=== PATIENT | male | born 1970 | race Caucasian/White ===

== ENCOUNTER 2016-10-14 18:00 | Emergency (ER) | payer BC ==
[~2016-10-14] VITALS: Ht 177.8 cm; Wt 125.4 kg
[~2016-10-14 18:00] MED LIST: CMD10 PO
[2016-10-14 18:04] VITALS: BP 160/78; PULSE 109; TEMP 37.4; O2SAT 93; Ht 177.8 cm; Wt 125.4 kg
--- NOTE | 2016-10-14 18:53 | EMERGENCY ROOM VISIT NOTE ---
ED Visit Note First contact with patient: 18:33 CHIEF COMPLAINT: Abscess of the buttocks HISTORY OF PRESENT ILLNESS: This 46-year-old male patient presents to the emergency department after they noticed a hard, red, tender area within the gluteal fold on the right buttock. Patient states this started about 3 days ago as a small pimple and has grown larger over the past 3 days becoming very painful and tender. Patient also noted some bloody drainage from the area today. There was no injury to the area preceding the infection. He denies fevers, chills, vomiting, loss of appetite. They rate the pain as aching and 6/ 10. Tetanus shot is up to date. They have tried no previous medications. Patient went to urgent care, [facility], and was sent here for further evaluation. The patient is not diabetic. The patient has no previous history of subcutaneous abscesses. Patient takes Coumadin for history of blood clots in the past. REVIEW OF SYSTEMS: A review of systems was performed with positives and pertinent negatives listed in the history of present illness. All other systems were reviewed and are negative. ALLERGIES: Penicillins MEDICATIONS: Warfarin PMH: Blood clots SOCIAL HISTORY: Current every day heavy smoker. Denies alcohol, denies recreational drugs. PHYSICAL EXAM: Vital Signs: Reviewed Nurse's notes, vital signs stable. GENERAL : Alert and pleasant, no acute distress, non toxic in appearance, well- developed well-nourished. SKIN: There is an erythematous indurated area within the gluteal fold on the right buttock which measures about 6 cm in diameter. It is fluctuant with a small amount of bloody and purulent drainage noted. There is a surrounding area of cellulitis measuring 8 cm x 12 cm, erythema and tender to palpation. Capillary refill less than 2 seconds. MUSCULOSKELETAL: There is no limitation of the range of motion of the lower extremities. EMERGENCY DEPARTMENT COURSE: I examined the patient. Differential diagnosis includes abscess, cellulitis, infected subcutaneous cyst, MRSA. Verbal consent was obtained to perform the procedure. After saline and Betadine cleansing and 3 mL of 1% buffered lidocaine with epinephrine anesthesia, the abscess was incised with a number 11 scalpel blade. A large amount of purulent and bloody material was released with more expressed by pressure. The abscess cavity was further probed with a needle auto haulaway driver and the deep pocket expressed. The abscess cavity was then copiously irrigated with sterile saline under pressure. The area was then packed with bacitracin soaked packing. The area was cleaned with sterile saline and dressed with bacitracin and a bulky bandage. Bleeding was controlled. The patient tolerated the procedure well. The area of cellulitis was marked with a skin marker for reference. The patient was given his first oral dose of clindamycin and prescription sent to the pharmacy. The patient was discharged home in stable condition. Problem List Medical Problems: (1) DVT (deep venous thrombosis) Status: Resolved (2) Superficial phlebitis Status: Resolved Current/Historical Medications Scheduled Clindamycin HCl (Clindamycin HCl), 3 CAP PO TID Warfarin Sodium (Coumadin), 10 MG PO DAILY Allergies Coded Allergies: Penicillins (Verified Allergy, Unknown, HIVES, 07/09/14) Vital Signs Date Time Temp Pulse Resp B/P Pulse Ox O2 Delivery O2 Flow Rate FiO2 10/14/16 18:04 37.4 109 20 160/78 93 Room Air Medications Administered Medications (Trade) Dose Ordered Sig/Gerardo Route Start Time Stop Time Status Last Admin Dose Admin Clindamycin HCl (Cleocin Cap) 450 mg NOW ONCE PO 10/14/16 20:15 10/14/16 20:16 DC 10/14/16 20:07 450 MG Departure Information Impression Primary Impression: Abscess or cellulitis of gluteal region Dispostion Home / Self-Care Condition GOOD Prescriptions Clindamycin HCl (Clindamycin HCl) 150 Mg Cap 3 CAP PO TID for 7 Days, #63 CAP Prov: Tiesha Lewis CRNP 10/14/16 Referrals Jay Hutchison III, M.D. (PCP) Patient Instructions My [facility] Additional Instructions Follow-up with your PCP tomorrow to have your wound evaluated and a dressing change done. You may change the dressing if it becomes soiled or bloodstained. The gauze packing should be able to come out in about 3 days. You should follow closely with your PCP to make sure the wound is healing appropriately. You may take Tylenol 1000 mg every 8 hours as needed for pain. Clindamycin 450 mg 3 times a day for 7 days. Return if any problems such as fever or increasing pain. See a general surgeon if an abscess re-occurs in the same area in the future for consideration of excision of the cyst.
[2016-10-14] MEDS ORDERED: LIDOCAINE/EPINEPHRINE 1% 20 ML VIAL INFIL ONE (19:00)
[2016-10-14] MEDS ORDERED: WARF10TA PO (19:23)
[2016-10-14] MEDS ORDERED: CLIN1CAP51 PO (20:01)
[2016-10-14] MEDS ORDERED: CLINDAMYCIN HCL 150 MG CAP PO ONE (20:15)
== END 2016-10-14 20:10 | disposition home or self-care (01) ==
LOC: C.EDB 18:00 → C.EDD 20:10
DX: L02.31 Cutaneous abscess of buttock (principal); L03.317 Cellulitis of buttock; Z86.718 Personal history of other venous thrombosis and embolism; Z79.01 Long term (current) use of anticoagulants; Z88.0 Allergy status to penicillin

== ENCOUNTER 2019-06-27 14:23 | Inpatient (IN) ==
[2019-06-27] MEDS ORDERED: METOPROLOL TARTRATE 1 MG/ML VIAL IV STA (14:32)
[2019-06-27] MEDS ORDERED: ASPIRIN CHEW 324 MG PO STA (14:32)
[2019-06-27] MEDS ORDERED: METOPROLOL TARTRATE 1 MG/ML VIAL IV ONE (14:32)
[2019-06-27 14:40] LABS: Basophils # (auto) 0.02 K/uL (0-0.2); Basophils % (auto) 0.2 %; Eosinophils # (auto) 0.12 K/uL (0-0.5); Eosinophils % (auto) 1.3 %; Hematocrit (blood only) 48.3 % (42-52); Hemoglobin 16.5 g/dL (14.0-18.0); Immature Granulocytes # (auto) 0.01 K/uL (0.00-0.02); Immature Granulocytes % (auto) 0.1 %; Lymphocytes # (auto) 1.92 K/uL (1.2-3.4); Lymphocytes % (auto) 21.1 %; Mean Corpuscular Hemoglobin 31.1 pg (25-34); Mean Corpuscular Hgb Conc 34.2 g/dL (32-36); Mean Platelet Volume 12.2 fL (7.4-10.4); Monocytes # (auto) 0.67 K/uL (0.11-0.59); Monocytes % (auto) 7.4 %; Neutrophils # (auto) 6.36 K/uL (1.4-6.5); Neutrophils % (auto) 69.9 %; Platelet Count 171 K/uL (130-400); RDW Coefficient of Variation 14.7 % (11.5-14.5); Red Blood Count 5.31 M/uL (4.7-6.1)
[2019-06-27] MEDS ORDERED: SODIUM CHLORIDE 0.9% 1000ML 1,000 ML IV SCH (14:45)
[2019-06-27] MEDS ORDERED: dilTIAZem HCL 125 MG in DEXTROSE 5% 100 ML IV SCH (14:45)
[2019-06-27 15:04] LABS: INR 1.9 (0.9-1.1); Partial Thromboplastin Ratio 1.4; Partial Thromboplastin Time 39.2 Seconds (21.0-31.0); Prothrombin Time 18.3 Seconds (9.0-12.0)
[2019-06-27 15:25] LABS: BUN Creatinine Ratio 18.4 (10-20); Blood Urea Nitrogen 18 mg/dl (7-18); Carbon Dioxide 25 mmol/L (21-32); Chloride 101 mmol/L (98-107); Creatinine Clr Calc Pharmacy 115.6 ml/min; Est GFR (Non-African American) 88.9; Glucose 313 mg/dl (70-99); Lipase 45 U/L (73-393); Magnesium 2.1 mg/dl (1.8-2.4); Potassium 4.2 mmol/L (3.5-5.1); Sodium 133 mmol/L (136-145)
[2019-06-27 15:43] LABS: Troponin I < 0.015 ng/ml (0-0.045)
[2019-06-27] MEDS ORDERED: OPTIRAY 320 125ml IV PRN (15:55)
--- NOTE | 2019-06-27 16:11 | CT Scan Report ---
CT angio chest PE protocol CT DOSE: 789.03 mGy.cm HISTORY: Dyspnea Chest Pain, eval for PE TECHNIQUE: Multiaxial CT images of the chest were performed following the intravenous administration of contrast to evaluate the pulmonary arteries. Maximal intensity projection images were also obtaine d. A dose lowering technique was utilized adhering to the principles of ALARA. COMPARISON STUDY: 02/08/2019 FINDINGS: Considerable improvement in the necrotic lesion right pulmonary apex. Moderate residual fib rotic change. Pulmonary vasculature enhances appropriately. Small linear filling defect distal right main pulmonary artery. All remaining pulmonary vessels appear to enhance appropriately. IMPRESSION: 1. Focal acute pulmonary embolus distal right main pulmonary artery. 2. Main pulmonary vessels enhance appropriately. 3. Emphysematous change. 4. Improving necrotic process right pulmonary apex with moderate fibrotic residual. ACT 112: Negative or not required by law. The above report was generated using voice recognition software. It may contain grammatical, syntax or spelling errors. Electronically signed by: Elbert Miles M.D. 06/27/2019 4:10 PM
[2019-06-27] MEDS ORDERED: HEPARIN SOD (PORCINE) 1000 UNIT/ML 10 ML VIAL ONE (16:58)
[2019-06-27] MEDS: HEPARIN SODIUM/DEXTROSE 25,000 UNITS/500 ML BAG IV SCH (17:05)
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
[2019-06-27] MEDS ORDERED: ACETAMINOPHEN 325 MG TAB PO PRN (18:49)
[2019-06-27] MEDS ORDERED: GLUCOSE 10 TABS/TUBE PO PRN (19:01)
[2019-06-27] MEDS ORDERED: GLUCOSE 40% GEL 15 GM TUBE PO PRN (19:01)
[2019-06-27] MEDS ORDERED: DEXTROSE 50% 50 ML SYRINGE IV PRN (19:01)
[2019-06-27] MEDS ORDERED: CARBOHYDRATES FOR HYPOGLYCEMIA PO PRN (19:01)
[2019-06-27] MEDS ORDERED: GLUCAGON FOR INJ 1 MG VIAL SQ PRN (19:01)
[2019-06-27] MEDS ORDERED: INSULIN GLARGINE SOLOSTAR 100 UNITS/ML 3 ML PEN SC ONE ×2 (19:45)
[2019-06-27] MEDS: METOPROLOL TARTRATE 25 MG TAB PO SCH (20:48)
[2019-06-27] MEDS: INSULIN ASPART 100 UNITS/ML 3 ML PEN SC SCH (20:49)
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
[2019-06-27 23:29] LABS: Partial Thromboplastin Ratio 2.3
[2019-06-27 23:37] LABS: Partial Thromboplastin Time 62.8 Seconds (21.0-31.0)
[2019-06-28 06:57] LABS: Hematocrit (blood only) 45.6 % (42-52); Hemoglobin 15.6 g/dL (14.0-18.0); Mean Corpuscular Hemoglobin 31.1 pg (25-34); Mean Corpuscular Hgb Conc 34.2 g/dL (32-36); Mean Corpuscular Volume 90.8 fL (80-100); Mean Platelet Volume 11.9 fL (7.4-10.4); Platelet Count 148 K/uL (130-400); RDW Coefficient of Variation 14.9 % (11.5-14.5); RDW Standard Deviation 49.9 fL (36.4-46.3); Red Blood Count 5.02 M/uL (4.7-6.1); White Blood Count 7.84 K/uL (4.8-10.8)
[2019-06-28 07:20] LABS: INR 1.5 (0.9-1.1); Partial Thromboplastin Ratio 1.8; Prothrombin Time 15.1 Seconds (9.0-12.0)
[2019-06-28 07:24] LABS: Partial Thromboplastin Time 49.3 Seconds (21.0-31.0)
[2019-06-28 07:25] LABS: BUN Creatinine Ratio 19.2 (10-20); Calcium 8.7 mg/dl (8.5-10.1); Creatinine Clr Calc Pharmacy 167.6 ml/min; Est GFR (African American) 128.9; Est GFR (Non-African American) 111.3; Potassium 3.9 mmol/L (3.5-5.1)
[2019-06-28] MEDS: HEPARIN SODIUM/DEXTROSE 25,000 UNITS/500 ML BAG IV SCH (07:31)
[2019-06-28] MEDS ORDERED: PERFLUTREN LIPID MICROSPHERE (DEFINITY) IV ONE (07:40)
[2019-06-28] MEDS: INSULIN ASPART 100 UNITS/ML 3 ML PEN SC SCH ×4 (08:18→20:38)
[2019-06-28] MEDS: INSULIN GLARGINE SOLOSTAR 100 UNITS/ML 3 ML PEN SC SCH ×2 (08:22→20:37)
[2019-06-28] MEDS: METOPROLOL TARTRATE 25 MG TAB PO SCH ×2 (08:24→20:36)
--- NOTE | 2019-06-28 10:47 | Medical Student Progress Note ---
Date of Service June 28, 2019 Assessment & Plan (1) Atrial fibrillation with RVR: Pt is a 49M with hx of HTN, chronic DVT on bloodthinner, and T2DM presenting with asymptomatic atrial fibrillation discovered on outside EKG found to have PE which is managed with heparin and spontaneously converted to sinus rythmn. Atrial Fibrillation with RVR - 06/27 EKG from PCP showed atrial fibrillation with RVR, pt reported he had no symptoms. - Converted to sinus rhythm last night. Pt to continue cardiazem gtt. - He is already on beta miguel for HTN - INR from 06/26 is 3.1, today is 1.5. R DVT/Pulmonary Embolism - 06/27 CTA chest shows PE on distal right main pulmonary artery - Continue heparin gtt HTN - BP today is 131/83 - continue home med, metoprolol tartrate 12.5mg (2) Acute DVT (deep venous thrombosis): (3) Acute pulmonary embolism: (4) History of DVT (deep vein thrombosis): (5) DVT prophylaxis: (6) History of pulmonary embolism: Subjective Pt is a 49M admitted to hospital on 06/27 from PCP due to abnormal EKG showing atrial fibrillation with RVR. His history is significant for chronic DVTs treated with bloodthinners. He was on Xarelto for years, but on 01/2019 he came in with R leg DVT and was switched to Coumadin. He recently presented to ER on 06/26 for leg pain and was worked up for DVT and Lila Acosta recommended that he change from Coumadin to Eliquis given subtherapeutic INR. He also has HTN treated with metoprolol and T2DM on insulin. This morning he reports feeling fine. He took one dose of Eliquis yesterday and had follow up with PCP who noticed an irregular pulse. She got an EKG which showed atrial fibrillation with RVR. He states that he never had any palpitations, chest pain, dizziness, and SOB on exertion, but does get SOB with lying flat. He endorses numbness and tingling in R>L foot, no gait instability. His job requires him to walk alot so his legs does swell at the end of the day so he elevates it when he sleep which improves it. He is a chronic smoker (1/2 PPD) with no interest in stopping. Review of Systems Constitutional: no fever, no chills, no body aches and no fatigue Eyes: no worsening vision Respiratory: no cough and no dyspnea on exertion Cardiovascular: + orthopnea and + edema (related to chronic DVT, usually notices at the end of the day, improves with elevation); no chest pain and no palpitations Gastrointestinal: no abdominal pain and no vomiting Neurologic: + tingling and + numbness (in R>L foot); no lack of coordination Physical Exam Constitutional: comfortable; no acute distress Eyes: PERRL, conjunctivae normal, anicteric sclerae ENMT: external ear and nose normal, oropharynx normal Neck: submandibular scar from recent surgery Respiratory: normal respiratory effort, lungs clear to auscultation Cardiovascular: RRR, no murmur, no edema Vessels: no JVD and no carotid bruit Extremities: + edema Gastrointestinal (Abdomen): normal bowel sounds, soft, nontender, no hepatosplenomegaly Musculoskeletal: no cyanosis or clubbing, extremities motor strength 5/5 Skin: + dry skin (flaking) Results & Data ([facility]) Vital Signs (Past 12 Hours) Vital Signs Temp Pulse Pulse Resp BP Pulse Ox 06/28/19 08:18 85 06/28/19 08:06 36.8 C 77 12 131/83 93 06/28/19 03:52 36.9 C 68 16 128/78 94 06/27/19 23:57 88 06/27/19 23:42 36.5 C 115 H 20 131/92 93
[2019-06-28] MEDS ORDERED: Nursing to Pharmacy Communication ONE (12:12)
--- NOTE | 2019-06-28 15:15 | Hospitalist Progress Note ---
Date of Service June 28, 2019 Assessment & Plan (1) Acute pulmonary embolism: (1) Acute pulmonary embolism: (2) Acute DVT (deep venous thrombosis): per admitting service notes: -Patient presenting by referral of PCPs office after he was found to be in atrial fibrillation with RVR; seen in ED yesterday and diagnosed with right lower extremity greater saphenous vein DVT. CTA chest in the ED today showing right main pulmonary artery pulmonary embolism. -Patient's pulmonary embolism and DVT history treatments outlined in detail in HPI -As of 01/2019, patient was placed on Coumadin. INR yesterday 3.1 however review of outpatient records shows several subtherapeutic INR's and missed an ticoagulation clinic. -Given patient's history of noncompliance in the past, it is unclear if he has had truly Xarelto, Eliquis, Coumadin failure -Started on heparin drip in the ED, will continue with; further determination to be made regarding oral anticoagulation -Patient is tachycardic however saturating well on room air and BP is stable -- hemodynamically stable INR 1.5, continue heparin drip will discuss with Brazing Furnace Feeder re: choice of long term anticoagulation (3) Atrial fibrillation with RVR -Patient with history of paroxysmal atrial fibrillation and flutter in the past in the setting of acute pulmonary embolism -- continue Metoprolol 12.5mg BID continue Heparin drip -- Blend Plant Operator consulted -- Echo: EF 50-55%, no segmental wall motion abnormalities noted, normal RV systolic function (4) Type 2 diabetes mellitus: -Hgb A1c 11.0 01/2019 -Patient admits to noncompliance with insulin -Lantus and NovoLog per protocol while hospitalized (5) Cavitary lesion of lung: -History of in 01/2019 -Had negative AFB and QuantiFERON gold testing -Completed 4 weeks of doxycycline -CT chest: showing improvement (6) DVT prophylaxis: -On IV heparin drip as above Disposition: anticipate d/c home when medically stable will either go home with Eliquis or Coumadin Subjective ff up for a fib in RVR, recurrent PE seen sitting up in bed, comfortable, on room air states breathing is fine, no chest pain, dizziness, palpitations no bleeding converted to SR early AM off Cardizem drip no other symptoms Review of Systems Review of Systems: All systems reviewed & are unremarkable except as noted in HPI & below Physical Exam Physical Exam: General- oriented x 3, not in distress, speaks in sentences with no effort or accessory muscle use Head- atraumatic Eyes- PERRL, EOMI, anicteric ENT- oropharynx clear Neck- supple, no JVD, no adenopathy, no thyromegaly; carotids +2/2, no bruits appreciated Lungs- clear to auscultation bilaterally, no rales/wheezes Heart- normal rate, regular rhythm; no murmur, no gallop, no rub appreciated Abdomen- normal bowel sounds, nondistended, soft, nontender, no masses or hepatosplenomegaly Extremities- mild erythema, tenderness, edema right thigh no pretibial edema, no calf tenderness; peripheral pulses intact Neuro- alert, oriented x 3; CN 2-12 grossly intact; motor 5/5 bilaterally;sensation 100% on all extremities; no other gross focal neurologic deficits Skin- warm & dry Results & Data Vital Signs (Past 12 Hours) Vital Signs Temp Pulse Pulse Resp BP Pulse Ox 06/28/19 11:00 36.6 C 75 18 129/82 94 06/28/19 08:18 85 06/28/19 08:06 36.8 C 77 12 131/83 93 06/28/19 03:52 36.9 C 68 16 128/78 94 Laboratory Results Laboratory Results - last 24 hr 06/27/19 06/27/19 06/27/19 14:03 19:10 22:57 WBC RBC Hgb Hct MCV MCH MCHC RDW Std Deviation RDW Coeff of Faustino Plt Count MPV PT INR APTT 62.8 H* PTT Ratio 2.3 Sodium Potassium Chloride Carbon Dioxide Anion Gap BUN Creatinine Est Cr Clr Drug Dosing Est GFR ( Amer) Est GFR (Non-Af Amer) BUN/Creatinine Ratio Glucose POC Glucose 186 H Calcium NT-Pro-B Natriuret Pep 1073 H 06/28/19 06/28/19 06/28/19 06:12 06:12 06:12 WBC 7.84 RBC 5.02 Hgb 15.6 Hct 45.6 MCV 90.8 MCH 31.1 MCHC 34.2 RDW Std Deviation 49.9 H RDW Coeff of Faustino 14.9 H Plt Count 148 MPV 11.9 H PT 15.1 H INR 1.5 H APTT 49.3 H* PTT Ratio 1.8 Sodium 134 L Potassium 3.9 Chloride 102 Carbon Dioxide 27 Anion Gap 5.0 BUN 13 Creatinine 0.67 D Est Cr Clr Drug Dosing 167.6 Est GFR ( Amer) 128.9 Est GFR (Non-Af Amer) 111.3 BUN/Creatinine Ratio 19.2 Glucose 200 H POC Glucose Calcium 8.7 NT-Pro-B Natriuret Pep 06/28/19 06/28/19 06/28/19 07:23 11:40 16:32 WBC RBC Hgb Hct MCV MCH MCHC RDW Std Deviation RDW Coeff of Faustino Plt Count MPV PT INR APTT PTT Ratio Sodium Potassium Chloride Carbon Dioxide Anion Gap BUN Creatinine Est Cr Clr Drug Dosing Est GFR ( Amer) Est GFR (Non-Af Amer) BUN/Creatinine Ratio Glucose POC Glucose 201 H 155 H 116 H Calcium NT-Pro-B Natriuret Pep
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
--- NOTE | 2019-06-28 17:40 | Electrocardiogram Report ---
Test Reason : Blood Pressure : / mmHG Vent. Rate : 098 BPM Atrial Rate : 258 BPM P-R Int : 000 ms QRS Dur : 082 ms QT Int : 354 ms P-R-T Axes : 000 082 068 degrees QTc Int : 451 ms Atrial fibrillation Abnormal ECG When compared with ECG of 27-JUN-2019 14:29, (unconfirmed) No significant change was found Confirmed by Renzo Song ([id number]) on 06/28/2019 5:40:05 PM Referred By: REFERRED SELF Confirmed By:Agapito Song
--- NOTE | 2019-06-28 17:40 | Electrocardiogram Report ---
Test Reason : Blood Pressure : / mmHG Vent. Rate : 137 BPM Atrial Rate : 144 BPM P-R Int : 000 ms QRS Dur : 068 ms QT Int : 312 ms P-R-T Axes : 000 083 048 degrees QTc Int : 471 ms Atrial fibrillation with rapid ventricular response Abnormal ECG When compared with ECG of 07-FEB-2019 19:30, Atrial fibrillation has replaced Sinus rhythm Confirmed by Renzo Song ([id number]) on 06/28/2019 5:40:32 PM Referred By: REFERRED SELF Confirmed By:Agapito Song
--- NOTE | 2019-06-28 17:48 | Electrocardiogram Report ---
Test Reason : Blood Pressure : / mmHG Vent. Rate : 070 BPM Atrial Rate : 070 BPM P-R Int : 178 ms QRS Dur : 076 ms QT Int : 446 ms P-R-T Axes : 047 079 071 degrees QTc Int : 481 ms Normal sinus rhythm Nonspecific ST abnormality When compared with ECG of 27-JUN-2019 14:40, (unconfirmed) Sinus rhythm has replaced Atrial fibrillation Confirmed by Renzo Song ([id number]) on 06/28/2019 5:47:55 PM Referred By: REFERRED SELF Confirmed By:Agapito Song
--- NOTE | 2019-06-28 17:52 | Electrocardiogram Report ---
Test Reason : Blood Pressure : / mmHG Vent. Rate : 076 BPM Atrial Rate : 076 BPM P-R Int : 180 ms QRS Dur : 074 ms QT Int : 426 ms P-R-T Axes : 037 082 070 degrees QTc Int : 479 ms Normal sinus rhythm Nonspecific ST abnormality When compared with ECG of 28-JUN-2019 00:37, (unconfirmed) No significant change was found Confirmed by Renzo Song ([id number]) on 06/28/2019 5:51:54 PM Referred By: REFERRED SELF Confirmed By:Agapito Song
[2019-06-28] MEDS ORDERED: STOP ORDER: HEPARIN ONE (19:59)
[2019-06-28] MEDS: APIXABAN 5 MG TABLET PO SCH (20:35)
[2019-06-29] MEDS: METOPROLOL TARTRATE 25 MG TAB PO SCH (08:14)
[2019-06-29] MEDS: APIXABAN 5 MG TABLET PO SCH (08:15)
[2019-06-29] MEDS: INSULIN GLARGINE SOLOSTAR 100 UNITS/ML 3 ML PEN SC SCH (08:16)
[2019-06-29] MEDS: INSULIN ASPART 100 UNITS/ML 3 ML PEN SC SCH (08:16)
[2019-06-29 08:52] LABS: Estimated Average Glucose 189 mg/dl; Hemoglobin A1C 8.2 % (4.5-5.6)
--- NOTE | 2019-06-29 10:14 | Hospitalist Progress Note ---
Date of Service June 29, 2019 Assessment & Plan (1) Acute pulmonary embolism: (1) Acute pulmonary embolism: (2) Acute DVT (deep venous thrombosis): per admitting service notes: -Patient presenting by referral of PCPs office after he was found to be in atrial fibrillation with RVR; seen in ED yesterday and diagnosed with right lower extremity greater saphenous vein DVT. CTA chest in the ED today showing right main pulmonary artery pulmonary embolism. -Patient's pulmonary embolism and DVT history treatments outlined in detail in HPI -As of 01/2019, patient was placed on Coumadin. INR yesterday 3.1 however review of outpatient records shows several subtherapeutic INR's and missed an ticoagulation clinic. -Given patient's history of noncompliance in the past, it is unclear if he has had truly Xarelto, Eliquis, Coumadin failure -Started on heparin drip in the ED, will continue with; further determination to be made regarding oral anticoagulation -Patient is tachycardic however saturating well on room air and BP is stable -- remained hemodynamically stable, o2 sats >90% on room air patient placed on heparin drip, after discussion with Employee Placement Specialist Dr. Kearns, patient transitioned to Eliquis 10mg BID x 7 days, then 5mg BID indefinitely ff up with [facility] Employee Placement Specialist Dr. Kearns 07/12/19 945am (3) Atrial fibrillation with RVR -Patient with history of paroxysmal atrial fibrillation and flutter in the past in the setting of acute pulmonary embolism -- initially placed on Cardizem drip, then patient converted to sinus ryhthm -- evaluated by Glaze Maker Dr. Marcial -- continue Metoprolol 12.5mg BID continue Eliquis -- Echo: EF 50-55%, no segmental wall motion abnormalities noted, normal RV systolic function -- ff up with Glaze Maker in 1 month (4) Type 2 diabetes mellitus: - A1c 8.2 -Patient admits to noncompliance with insulin -continue insulin regimen, ff up closely with PCP (5) Cavitary lesion of lung: -History of in 01/2019 -Had negative AFB and QuantiFERON gold testing -Completed 4 weeks of doxycycline -CT chest: showing improvement Disposition: d/c home ff up with PCP Monday 07/03 1045am ff up with Employee Placement Specialist and Glaze Maker as noted above Subjective ff up for recurrent PE, A fib remains in SR seen resting in bed, comfortable states he feels much better overall, back to baseline denies chest pain, dyspnea, dizziness, palpitations ambulating in the room with no problems no bleeding states he is ready and would like to be discharged today Review of Systems Review of Systems: All systems reviewed & are unremarkable except as noted in HPI & below Physical Exam Physical Exam: General- oriented x 3, not in distress, speaks in sentences with no effort or accessory muscle use Eyes- anicteric Neck- no JVD Lungs- clear breath sounds bilaterally,no crackles, no wheezing Heart- normal rate, regular rhythm; no murmurs Abdomen- normal bowel sounds, nondistended, soft, nontender Extremities-mild erythema, tenderness on the right medial thigh no pretibial edema, no calf tenderness Neuro- alert, oriented x 3; no gross focal neurologic deficits Skin- warm & dry Results & Data ([facility]) Vital Signs (Past 12 Hours) Vital Signs Temp Pulse Resp BP Pulse Ox 06/29/19 07:09 36.4 C L 68 19 157/90 H 94 06/29/19 05:15 36.7 C 48 L 20 144/85 H 92 06/28/19 23:58 36.6 C 66 18 122/75 94 Laboratory Results Laboratory Results - last 24 hr 06/28/19 06/28/19 06/28/19 11:40 16:32 20:25 POC Glucose 155 H 116 H 173 H Estimat Average Glucose Hemoglobin A1c 06/29/19 06/29/19 05:47 07:27 POC Glucose 124 H Estimat Average Glucose 189 Hemoglobin A1c 8.2 H
--- NOTE | 2019-06-29 10:27 | Discharge Summary ---
Date of Service June 29, 2019 Admission HPI Per Admitting Provider 49-year-old male who presents to the ED by referral of outpatient clinic for evaluation of atrial fibrillation with RVR. Patient has longstanding history of recurrent DVT and pulmonary embolism. Patient admitted to [facility] 01/2018 for acute pulmonary embolism and a left lower extremity DVT. Patient previously on Coumadin for right lower extremity DVT however on presentation to the admission, patient admitted to noncompliance with Coumadin. He was discharged on Xarelto. Patient presented to [facility] again 01/2019 with acute pulmonary embolism. It was felt to be possible Xarelto failure and therefore patient was placed back on Coumadin. Patient was seen in the ED yesterday for right lower extremity swelling. Right lower externally Doppler showed acute superficial thrombus within the greater saphenous vein which extends to within 8 cm from the common femoral vein junction. Patient's INR was 3.1. Hematology was consulted who recommended transitioning the patient to Eliquis. Patient reports taking his first dose of Eliquis this morning. Patient does admit to missing doses of Coumadin, and review of outpatient record demonstrates several subtherapeutic INR and missed anticoagulation clinic appointments. Patient was seen at PCPs office today for close follow-up of ED visit yesterday. Upon arrival, he was found to be in atrial fibrillation with RVR. Patient was asymptomatic and denies chest pain, palpitations, shortness of breath. No lightheadedness, dizziness, diaphoresis, syncopal events. He denies abdominal pain, nausea, vomiting, diarrhea. No other recent illnesses, fevers, chills. He denies any urinary symptoms. In the ED, patient was found to be in atrial fibrillation with RVR with heart rates in the 130s. Chest CTA showing focal acute pulmonary embolus distal right main pulmonary artery. BP has remained stable and patient is saturating well on room air. For the atrial fibrillation, patient was given metoprolol 5 mg IV and started on a Cardizem drip. He was also started on IV heparin. Admission Exam Per Admitting Provider General: Well nourished, well hydrated, obese, no acute distress and not ill appearing Eyes: PERRL, conjunctivae normal, not pale, anicteric sclerae, EOM intact bilaterally ENMT: External ear and nose normal, oropharynx normal Neck: Normal visual inspection, no tracheal deviation, no swelling noted Respiratory: Normal respiratory effort, no respiratory distress, lungs clear to auscultation, no crackles and no wheezes Cardiovascular: Pulse is irregularly irregular, tachycardic. S1 S2 no murmurs appreciated. Chest (Breasts): Chest: normal inspection of chest Gastrointestinal (Abdomen): Abdomen is not distended, soft, non-tender to palpation, no guarding, no palpable hepatosplenomegaly, normal bowel sounds Musculoskeletal: No cyanosis or clubbing, all extremities motor strength 5/5, trace bilateral edema with hyperpigmented skin/stasis dermatitis changes. Right leg bigger than left, nodular tender lesions on medial side of leg and knee Genitourinary: No CVA tenderness Skin: No rash noted on gross inspection, No ulcers noted Neurologic: Alert and oriented x 3, No focal weakness, sensation grossly intact Psychiatric: Euthymic affect, normal judgement Principal Diagnosis ACUTE PULMONARY EMBOLISM, ATRIAL FIBRILLATION IN RAPID VENTRICULAR RESPONSE Discharge Exam General- oriented x 3, not in distress, speaks in sentences with no effort or accessory muscle use Eyes- anicteric Neck- no JVD Lungs- clear breath sounds bilaterally,no crackles, no wheezing Heart- normal rate, regular rhythm; no murmurs Abdomen- normal bowel sounds, nondistended, soft, nontender Extremities-mild erythema, tenderness on the right medial thigh no pretibial edema, no calf tenderness Neuro- alert, oriented x 3; no gross focal neurologic deficits Skin- warm & dry Discharge Data Allergies Allergy/AdvReac Type Severity Reaction Status Date / Time Penicillins Allergy Intermediate Hives Verified 06/27/19 15:27 Consultations 06/27/19 16:17 ED Decision to Admit Stat 06/27/19 18:49 Consult Cardiology Routine Ordered Studies 06/27/19 14:33 CT angio chest PE protocol Stat CT DOSE: 789.03 mGy.cm HISTORY: Dyspnea Chest Pain, eval for PE TECHNIQUE: Multiaxial CT images of the chest were performed following the intravenous administration of contrast to evaluate the pulmonary arteries. Maximal intensity projection images were also obtained. A dose lowering technique was utilized adhering to the principles of ALARA. COMPARISON STUDY: 02/08/2019 FINDINGS: Considerable improvement in the necrotic lesion right pulmonary apex. Moderate residual fibrotic change. Pulmonary vasculature enhances appropriately. Small linear filling defect distal right main pulmonary artery. All remaining pulmonary vessels appear to enhance appropriately. IMPRESSION: 1. Focal acute pulmonary embolus distal right main pulmonary artery. 2. Main pulmonary vessels enhance appropriately. 3. Emphysematous change. 4. Improving necrotic process right pulmonary apex with moderate fibrotic residual. ACT 112: Negative or not required by law. The above report was generated using voice recognition software. It may contain grammatical, syntax or spelling errors. Electronically signed by: Elbert Miles M.D. 06/27/2019 4:10 PM US venous doppler LE RT CLINICAL HISTORY: right leg swelling, hx of dvt COMPARISON STUDY: January 2018 FINDINGS: Color-flow grayscale and spectral waveform analysis was performed. There is extensive greater saphenous superficial thrombus extending from the proximal thigh to the proximal calf. This 8 cm away from the common femoral junction. There is chronic stranding within the superficial femoral vein and popliteal vein with incomplete compressibility. The findings are likely chronic. The common femoral vein appeared patent. The proximal trifurcation veins of the calf appear patent. IMPRESSION: 1. Acute superficial thrombus within the greater saphenous vein which extends to within 8 cm from the common femoral vein junction 2. Chronic DVT involving the right superficial femoral and popliteal veins. ACT 112: Negative or not required by law. Electronically signed by: Norman Rojas M.D. 06/26/2019 12:15 PM Hospital Course (1) Acute pulmonary embolism: (1) Acute pulmonary embolism: (2) Acute DVT (deep venous thrombosis): per admitting service notes: -Patient presenting by referral of PCPs office after he was found to be in atrial fibrillation with RVR; seen in ED prior to admission and diagnosed with right lower extremity greater saphenous vein DVT. CTA chest in the ED on the day of admission showing right main pulmonary artery pulmonary embolism. -Patient's pulmonary embolism and DVT history treatments outlined in detail in HPI -As of 01/2019, patient was placed on Coumadin. INR yesterday 3.1 however review of outpatient records shows several subtherapeutic INR's and missed anticoagulation clinic. -Given patient's history of noncompliance in the past, it is unclear if he has had truly Xarelto, Eliquis, Coumadin failure -Started on heparin drip in the ED -Patient is tachycardic however saturating well on room air and BP is stable -- remained hemodynamically stable, o2 sats >90% on room air patient continued on heparin drip, after discussion with Pull Through Hooker Dr. Mckinney, patient transitioned to Eliquis 10mg BID x 7 days, then 5mg BID indefinitely ff up with [facility] [employer] Through [employer] Dr. Mckinney 07/12/19 945am hypercoagulable work up as out patient (3) Atrial fibrillation with RVR -Patient with history of paroxysmal atrial fibrillation and flutter in the past in the setting of acute pulmonary embolism -- initially placed on Cardizem drip, then patient converted to sinus ryhthm -- evaluated by Fund Development Manager Dr. Cota -- continue Metoprolol 12.5mg BID continue Eliquis -- Echo: EF 50-55%, no segmental wall motion abnormalities noted, normal RV systolic function -- ff up with Fund Development Manager in 1 month (4) Type 2 diabetes mellitus: - A1c 8.2 -Patient admits to noncompliance with insulin -continue insulin regimen, ff up closely with PCP (5) Cavitary lesion of lung: -History of in 01/2019 -Had negative AFB and QuantiFERON gold testing -Completed 4 weeks of doxycycline -CT chest: showing improvement emphasized strongly with patient regarding adherence to medication regimen including Eliquis and Insulin risks and consequences discussed with him in detail he verbalized agreement, understanding with above and with the plan of care Disposition: d/c home ff up with PCP Monday 07/03 1045am ff up with Pull Through Hooker and Fund Development Manager as noted above Total Time Total Time Spent Total Time Spent (In Minutes): 40 minutes Discharge Plan Discharge Items Patient Disposition: Home - Self-Care Reason For Visit: PE,AFIB RVR Discharge Diagnosis: ACUTE PULMONARY EMBOLISM, ATRIAL FIBRILLATION Activity: As commented below Activity Comment: NO HEAVY EXERTION UNTIL RE-EVALUATED BY PRIMARY CARE PHYSICIAN Lifting: Wait until after follow-up appointment Exercise/Sports: Wait until after follow-up appointment Driving/Machine Use: NO DRIVING UNTIL RE-EVALUATED AND ALLOWED BY PRIMARY CARE PHYSICIAN Non-emergency contact: Primary Care Provider Call non-emergency contact if: you have any medication questions, your symptoms worsen, your pain is not controlled, your pain is worsening, your pain is concerning for you and you have a fever Follow-up/Referrals: Jad Cota DO [Physician] - Jay Hilario MD [Primary Care Provider] - 07/03/19 10:45 am Myriam Mckinney MD [Hospitalist] - 07/12/19 9:45 am Diet: Carb Consistent or DM2 and Heart Healthy Addtl Attending Provider Instructions: PLEASE REVIEW YOUR NEW MEDICATION LIST AND FOLLOW INSTRUCTIONS CAREFULLY. INSTRUCTIONS FOR ELIQUIS: 10 MG BY MOUTH TWICE A DAY X 6 DAYS, THEN 5 MG BY MOUTH TWICE A DAY INDEFINITELY PLEASE TAKE YOUR MEDICATIONS REGULARLY INSTRUCTED. CALL YOUR PRIMARY CARE PHYSICIAN IF YOU HAVE ANY QUESTIONS. FOLLOW UP WITH DR. HILARIO AND DR. MCKINNEY (BUSINESS TAXES SPECIALIST/BLOOD SPECIALIST) OUTLINED ABOVE. FOLLOW UP WITH DR. COTA (FITTER UP) IN 1 MONTH. PLEASE CALL PRIMARY CARE PHYSICIAN OR RETURN TO THE ER IMMEDIATELY IF WITH WORSENING OR RECURRENCE OF SYMPTOMS. Pending Studies at Discharge: Yes Studies:: HYPERCOAGUABLE WORK UP Stand-Alone Forms: My [facility] Adknowledge, Smoking Cessation Medications and DC Order Prescriptions: New metoprolol tartrate 25 mg Tablet 12.5 mg PO BID Qty: 30 RF: 2 Continued Eliquis 5 mg tablet See Rx Instructions .ROUTE .COMPLEX Qty: 74 RF: 0 albuterol sulfate [ProAir HFA] 90 mcg/actuation Hfa Aerosol Inhaler 2 puff INHALATION QID PRN (Reason: SHORT OF BREATH) RF: 0 metformin 1,000 mg tablet 1,000 mg PO BID Qty: 60 RF: 3 insulin lispro [Humalog KwikPen Insulin] 100 unit/mL insulin pen 10 units SQ TID Qty: 15 RF: 3 Lantus Solostar U-100 Insulin 100 unit/mL (3 mL) insulin pen 30 unit SUBCUT QAM RF: 0 Discontinued lisinopril 5 mg tablet 5 mg PO DAILY RF: 0 Discharge Orders: Discharge Order (Routine); Ordered 06/29/19 Ordered By: Keaton Deluna/Other Patient Handouts: Diabetes Ring Sorter Complications, Hyperglycemia, Hypoglycemia, Blood Sugar Check, Diabetes Healthy Meals, Diabetes Carbs, Diabetes Exercise Benefits, Diabetes Living Life, Diabetes Manage A1C Test Admission Data Admit Date/Time: 06/27/19 17:33 Attending Provider: Keaton Dominguez Admit Provider: Flavia Beverly I. Primary Care Provider: Jay Hilario Other Providers: Flavia Beverly I. ; Jad Cota
--- NOTE | 2019-06-29 17:24 | Electrocardiogram Report ---
Test Reason : Blood Pressure : / mmHG Vent. Rate : 070 BPM Atrial Rate : 070 BPM P-R Int : 182 ms QRS Dur : 076 ms QT Int : 436 ms P-R-T Axes : 043 077 065 degrees QTc Int : 470 ms Normal sinus rhythm Incomplete right bundle branch block Abnormal ECG When compared with ECG of 28-JUN-2019 06:48, No significant change was found Confirmed by Renzo Song ([id number]) on 06/29/2019 5:24:08 PM Referred By: REFERRED SELF Confirmed By:Agapito Song
--- NOTE | 2019-06-30 16:51 | Cardiology Progress Note ---
Date of Service June 29, 2019 Assessment & Plan (1) Atrial fibrillation with RVR: Transient and asymptomatic. Patient will require anticoagulation regardless for his PE and he has been started on Eliquis. He is remained in normal sinus rhythm with his outpatient metoprolol and that should be continued Okay to discharge from a cardiac standpoint. (2) Acute DVT (deep venous thrombosis): (3) Acute pulmonary embolism: (4) History of DVT (deep vein thrombosis): (5) DVT prophylaxis: (6) History of pulmonary embolism: Subjective Patient seen and examined without complaint. States that he feels well and denies any complaints of chest pain, shortness of breath, palpitations, lightheadedness, dizziness or syncope. Telemetry reviewed: Normal sinus rhythm without recurrences of atrial fibrillation. Review of Systems Review of Systems: All systems reviewed & are unremarkable except as noted in HPI & below Physical Exam Physical Exam: Physical Exam: General: Awake, alert and oriented x 3. No acute distress. HEENT: Normocephalic, atraumatic. Pupils equal, round and reactive to light and accommodation. Extraocular muscles are intact. Anicteric sclera. Moist mucous membranes. Neck: No JVD. No bruit. Cardiovascular: Regular. No S-4. Normal S-1 and S-2. No S-3. No murmurs, rubs or gallops. Pulmonary: Clear to auscultation bilaterally. No rales, rhonchi, or wheezing. Abdomen: Bowel sounds x 4, soft. No rebound, guarding or tenderness. No organomegaly. Extremities: No clubbing, cyanosis or edema. +2 pedal pulses bilaterally. Skin: Warm and dry.
[2019-07-05] MEDS ORDERED: APIXABAN 5 MG TABLET PO SCH (21:00)
== END 2019-06-29 11:35 | disposition home or self-care (01) | DRG 299 ==
LOC: ED 14:23 → 2S 17:33 → SUATTDRO 17:33 → 2S 18:03

== ENCOUNTER 2020-03-01 13:15 | Inpatient (IN) ==
[2020-03-01] MEDS ORDERED: dilTIAZem HCl 5 MG/ML 5 ML VIAL IV STA ×2 (13:31→15:27)
[2020-03-01 13:45] LABS: Basophils # (auto) 0.02 K/uL (0-0.2); Basophils % (auto) 0.2 %; Eosinophils # (auto) 0.06 K/uL (0-0.5); Eosinophils % (auto) 0.7 %; Hemoglobin 16.7 g/dL (14.0-18.0); Immature Granulocytes # (auto) 0.02 K/uL (0.00-0.02); Immature Granulocytes % (auto) 0.2 %; Lymphocytes # (auto) 1.52 K/uL (1.2-3.4); Lymphocytes % (auto) 17.9 %; Mean Corpuscular Hemoglobin 30.1 pg (25-34); Mean Corpuscular Hgb Conc 32.1 g/dL (32-36); Mean Corpuscular Volume 93.7 fL (80-100); Mean Platelet Volume 12.5 fL (7.4-10.4); Monocytes # (auto) 0.56 K/uL (0.11-0.59); Monocytes % (auto) 6.6 %; Neutrophils # (auto) 6.31 K/uL (1.4-6.5); Neutrophils % (auto) 74.4 %; Platelet Count 177 K/uL (130-400); RDW Coefficient of Variation 14.9 % (11.5-14.5); RDW Standard Deviation 51.2 fL (36.4-46.3); Red Blood Count 5.55 M/uL (4.7-6.1); White Blood Count 8.49 K/uL (4.8-10.8)
[2020-03-01 13:59] LABS: INR 1.1 (0.9-1.1); Partial Thromboplastin Ratio 0.9; Partial Thromboplastin Time 26.5 Seconds (21.0-31.0); Prothrombin Time 11.7 Seconds (9.0-12.0)
[2020-03-01 14:17] LABS: Alanine Aminotransferase 42 U/L (12-78); Albumin Globulin Ratio 0.8 (0.9-2); Alkaline Phosphatase 76 U/L (45-117); Aspartate Aminotransferase 14 U/L (15-37); BUN Creatinine Ratio 11.1 (10-20); Bilirubin,Total 0.5 mg/dl (0.2-1); Blood Urea Nitrogen 14 mg/dl (7-18); Calcium 9.2 mg/dl (8.5-10.1); Carbon Dioxide 28 mmol/L (21-32); Chloride 99 mmol/L (98-107); Creatinine Clr Calc Pharmacy 93.4 ml/min; Est GFR (African American) 73.2; Est GFR (Non-African American) 63.2; Globulin 3.9 gm/dl (2.5-4.0); Glucose 563 mg/dl (70-99); Lipase 172 U/L (73-393); Magnesium 1.7 mg/dl (1.8-2.4); Phosphorus 4.2 mg/dl (2.5-4.9); Potassium 4.1 mmol/L (3.5-5.1); Sodium 134 mmol/L (136-145); Total Protein 6.9 gm/dl (6.4-8.2)
[2020-03-01 14:19] LABS: NT Pro B Type Natriuretic Pept 1354 pg/ml (0-900); Troponin I < 0.015 ng/ml (0-0.045)
--- NOTE | 2020-03-01 14:19 | XRay Report ---
XR chest 1V portable CLINICAL HISTORY: Atypical chest pain COMPARISON STUDY: 08/01/2019 FINDINGS: The heart is enlarged. There is elevation of interstitium consistent with pulmonary vascula r congestion/fluid overload. There is a suspected small right pleural effusion. There are right lower lobe airspace opacities, edema versus atelectasis versus pneumonia[ IMPRESSION: 1. Cardiomegaly and radiographic evidence of congestive failure/fluid overload. 2. Small right pleural effusion 3. Right basilar airspace opacities. These are nonspecific and could represent focal edema, pneumonia , or atelectasis. Clinical and radiographic follow-up recommended ACT 112: Negative or not required by law. Electronically signed by: Norman Rojas M.D. 03/01/2020 2:18 PM
[2020-03-01 14:31] LABS: Beta-Hydroxybutyrate 1.75 mg/dl (0.2-2.81)
[2020-03-01] MEDS ORDERED: OPTIRAY 320 125ml IV ONE (14:43)
[2020-03-01 14:49] LABS: T4 Free Thyroxine 1.73 ng/dl (0.8-1.6)
--- NOTE | 2020-03-01 15:06 | CT Scan Report ---
CT ANGIOGRAM OF THE CHEST CLINICAL HISTORY: Dyspnea. COMPARISON STUDY: Chest CT scans dated 06/27/2019, 02/08/2019, and 02/11/2018. Chest x-ray dated 020. TECHNIQUE: Following the IV administration of 118 cc of Optiray 320, CT angiogram of the chest was pe rformed from the upper abdomen to the thoracic inlet utilizing the pulmonary embolus protocol. Images are reviewed in the axial, sagittal, and coronal planes. 3-D MIPS images are created and assessed. I V contrast was administered without complication. A dose lowering technique was utilized adhering to the principles of ALARA. CT DOSE: 1081.97 mGy.cm FINDINGS: Thyroid: Imaged portions of the thyroid gland are normal in size and attenuation. Thoracic aorta: There is atherosclerotic calcification of the thoracic aorta, which is normal in [place] and demonstrates 4-vessel calvarium arch anatomy. The thoracic aorta is not well opacified. Pulmonary vasculature: The pulmonary trunk is normal in caliber. Trace chronic thrombus is again seen within the distal right main pulmonary artery on image #163. There is no evidence of acute pulmonary embolus in the main, lobar, or proximal segmental pulmonary branches to suggest pulmonary embolus. E valuation of the peripheral branches is degraded by motion artifact. Heart: The heart is enlarged noting a small pericardial effusion. The coronary arteries are densely c alcified. Lungs and pleural spaces: Emphysematous change is noted. Linear scarring at the right apex is similar to previous. There are small right and trace left pleural effusions with patchy airspace consolidati on at both lung bases. Patchy airspace consolidation is also seen in the right upper lobe. Secretions are noted in the trachea. Mediastinum: There are numerous enlarged mediastinal lymph nodes. Prevascular nodes measure up to 10 mm in short axis. A subcarinal node measures 20 mm in short axis. AP window nodes measure 12 mm in sh ort axis. Eri: Mildly enlarged hilar nodes measure up to 12 mm in short axis. Axillae: There is no axillary lymphadenopathy. Upper abdomen: There is trace perihepatic and perisplenic ascites. Partially visualized upper abdomin al viscera is otherwise grossly unremarkable. Skeletal structures: Degenerative change and hyperkyphosis is noted in the thoracic spine. No lytic o r blastic bony lesions are seen. Soft tissues: A 2 cm sebaceous cyst is noted in the lower back. IMPRESSION: 1. There is no evidence of acute pulmonary embolus in the main, lobar, or proximal segmental pulmonar y arteries. 2. There is trace chronic thrombus identified within the distal right main pulmonary artery. This is similar to the 06/27/2019 examination. 3. Cardiomegaly and emphysema. 4. There are small right and trace left pleural effusions. 5. Patchy airspace consolidation is seen dependently in both lungs. Patchy airspace consolidation is also seen in the right upper lobe. The appearance suggests an infectious/inflammatory pneumonitis. Cl inical correlation will be required. Follow-up chest CT in 3-4 months time is recommended to document resolution. 6. There are mildly enlarged mediastinal and hilar lymph nodes. This has increased from previous and may be on a reactive basis. This should also be reassessed at follow-up. 7. There is a small volume of upper abdominal ascites. 8. Additional findings as above. ACT 112: Negative or not required by law. Electronically signed by: Clifton Hopkins M.D. 03/01/2020 3:05 PM
[2020-03-01] MEDS: MAGNESIUM SULFATE / D5W 1 GM/100 ML BAG IV SCH ×2 (15:20→16:46)
--- NOTE | 2020-03-01 15:28 | Ultrasound Report ---
ULTRASOUND LEFT LOWER EXTREMITY VENOUS CLINICAL HISTORY: Deep venous thrombosis. Left leg pain and swelling. COMPARISON STUDY: Bilateral lower extremity venous ultrasound dated 02/11/2018. TECHNIQUE: Real-time, grayscale, and color Doppler sonography of the deep veins of the left lower ext remity was performed from the inguinal crease to the calf. Compression and augmentation were utilized . 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 There is nonocclusive a nd chronic appearing deep venous thrombosis identified within one of the paired superficial and popli teal veins. The common femoral vein is patent and normally compressible. The greater saphenous vein a nd the profunda femoris vein at the junction with the common femoral vein are clear. The visualized c long-term veins are patent. IMPRESSION: There is nonocclusive and chronic appearing deep venous thrombosis identified within 1 of the duplicated superficial femoral and popliteal veins. ACT 112: Negative or not required by law. Electronically signed by: Clifton Hopkins M.D. 03/01/2020 3:27 PM
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
[2020-03-01] MEDS ORDERED: STAT IV Infusion **Titration per Protocol STA (16:10)
[2020-03-01] MEDS ORDERED: NovoLIN-R BOLUS FROM BAG IV ONE (16:11)
[2020-03-01] MEDS ORDERED: FUROSEMIDE 40 MG/4 ML VIAL IV STA (16:13)
[2020-03-01] MEDS ORDERED: INSULIN HUMAN REGULAR PER UNIT 10 UNITS in SYRINGE 9.9 ML IV STA (16:24)
[2020-03-01] MEDS ORDERED: NovoLIN-R INSULIN PER UNIT CHARGE ONE (16:40)
[2020-03-01] MEDS: dilTIAZem HCL 125 MG in DEXTROSE 5% 100 ML IV SCH (16:46)
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
[2020-03-01] MEDS ORDERED: DEXTROSE 50% 50 ML SYRINGE IV PRN (18:13)
[2020-03-01] MEDS ORDERED: GLUCOSE 10 TABS/TUBE PO PRN (18:13)
[2020-03-01] MEDS ORDERED: GLUCAGON FOR INJ 1 MG VIAL SQ PRN (18:13)
[2020-03-01] MEDS ORDERED: ACETAMINOPHEN 325 MG TAB PO PRN (18:13)
[2020-03-01] MEDS ORDERED: GLUCOSE 40% GEL 15 GM TUBE PO PRN (18:13)
[2020-03-01] MEDS ORDERED: PHARMACY GLYCEMIC MGMT CONSULT PRN (18:25)
[2020-03-01] MEDS: Heparin IV Standard *NO* Bolus IV SCH ×2 (18:44)
[2020-03-01] MEDS ORDERED: METOPROLOL TARTRATE 25 MG TAB PO ONE (19:00)
[2020-03-01] MEDS: HEPARIN SODIUM/DEXTROSE 25,000 UNITS/500 ML BAG IV SCH (19:25)
[2020-03-01] MEDS: INSULIN GLARGINE SOLOSTAR 100 UNITS/ML 3 ML PEN SC SCH (19:29)
[2020-03-01] MEDS: INSULIN ASPART 100 UNITS/ML 3 ML PEN SC SCH ×2 (19:29→22:11)
--- NOTE | 2020-03-01 20:10 | Pharmacy Report ---
Glycemic Control Consultation - Date of Service March 01, 2020 - Scope Scope: Glycemic Pharmacist consulted for glycemic control and to write orders per [facility] inpatient glycemic control protocol. - Objective Weight: 130.6 kg Accuchecks BSG (last 24hrs): 03/01/20 03/01/20 03/01/20 13:34 15:38 17:53 Glucose 563 H* POC Glucose 430 H* 258 H 03/01/20 18:47 Glucose POC Glucose 276 H Laboratory Data (last 24hrs): 03/01/20 13:34 Potassium 4.1 Carbon Dioxide 28 Anion Gap 7.0 Creatinine 1.30 Est Cr Clr Drug Dosing 93.4 Beta-Hydroxybutyric Acd 1.75 - Recent Pertinent Medications Outpatient Anti-diabetic Regimen: * Lantus 30 units SC qAM * Humalog sliding scale TIDM * Trulicity 0.75 mg SC weekly on Mondays * Metformin 1 g PO daily w/ dinner * A1c = 8.2 % (06/29/19), repeat ordered - Assessment & Plan Assessment & Plan: ASSESSMENT: * DK is a 49 year old male admitted on 03/01 with atrial fibrillation with rapid ventricular response * Currently receiving diltiazem and heparin infusions * BSG upon presentation was 563 mg/dL (patient reports eating cheeseburger prior to arrival) * CO2: 28, A, beta-hydroxybutyric acid: 1.75 * Patient received 10 unit IV regular insulin bolus and BSG * Confirmed with RN - patient did not receive any insulin prior to admission * Will utilize past inpatient data from January 2019 to help guide initial insulin dosing PLAN FOR INPATIENT GLYCEMIC CONTROL: * Holding outpatient oral diabetes medications * Basal insulin * Lantus 30 units SC daily * Bolus insulin (weight-based stress of 2 dosing) * NovoLog per scale ACHS or Q6hrs while NPO * Goal Range: Low 110 mg/dL - High 150 mg/dL * Correction Factor: 15 mg/dL/unit * Nutritional / Prandial insulin per carb ratio of 1 unit per 6 grams CHO consumed * Please note that the plan above was derived based on current level of insulin resistance and hospital stress. These recommendations are appropriate for inpatient admission only. Plan of care upon discharge will need to be reassessed to avoid potential outpatient hypo/hyperglycemia. Thank you.
[2020-03-01] MEDS ORDERED: METOPROLOL TARTRATE 25 MG TAB PO SCH (21:00)
[2020-03-01] MEDS: METOPROLOL TARTRATE 25 MG TAB PO SCH (21:12)
--- NOTE | 2020-03-01 23:17 | Electrocardiogram Report ---
Test Reason : Blood Pressure : / mmHG Vent. Rate : 152 BPM Atrial Rate : 163 BPM P-R Int : 000 ms QRS Dur : 076 ms QT Int : 284 ms P-R-T Axes : 000 114 -31 degrees QTc Int : 451 ms Poor data quality, interpretation may be adversely affected Atrial fibrillation with rapid ventricular response Right axis deviation Septal infarct , age undetermined Nonspecific T wave abnormality Abnormal ECG When compared with ECG of 01-AUG-2019 13:23, No significant change was found Confirmed by Juan Ryan ([id number]) on 03/01/2020 11:16:54 PM Referred By: Nissa Reed Confirmed By:Juan Ryan
[2020-03-02] MEDS: dilTIAZem HCL 125 MG in DEXTROSE 5% 100 ML IV SCH ×3 (00:06→19:21)
[2020-03-02 00:45] LABS: T3 Free 3.39 pg/ml (2.3-4.2); T3 Total 1.15 ng/ml (0.60-1.81); T4 Thyroxine 10.8 mcg/dl (4.5-10.9)
[2020-03-02 01:29] LABS: Basophils # (auto) 0.03 K/uL (0-0.2); Basophils % (auto) 0.3 %; Eosinophils # (auto) 0.12 K/uL (0-0.5); Eosinophils % (auto) 1.3 %; Hematocrit (blood only) 45.9 % (42-52); Hemoglobin 14.7 g/dL (14.0-18.0); Immature Granulocytes # (auto) 0.01 K/uL (0.00-0.02); Immature Granulocytes % (auto) 0.1 %; Lymphocytes # (auto) 2.58 K/uL (1.2-3.4); Lymphocytes % (auto) 28.1 %; Mean Corpuscular Hemoglobin 29.7 pg (25-34); Mean Corpuscular Volume 92.7 fL (80-100); Mean Platelet Volume 12.7 fL (7.4-10.4); Monocytes # (auto) 0.83 K/uL (0.11-0.59); Monocytes % (auto) 9.1 %; Neutrophils % (auto) 61.1 %; Platelet Count 184 K/uL (130-400); RDW Coefficient of Variation 15.1 % (11.5-14.5); RDW Standard Deviation 51.1 fL (36.4-46.3); Red Blood Count 4.95 M/uL (4.7-6.1); White Blood Count 9.17 K/uL (4.8-10.8)
[2020-03-02 01:42] LABS: INR 1.1 (0.9-1.1); Partial Thromboplastin Ratio 1.6; Partial Thromboplastin Time 44.8 Seconds (21.0-31.0); Prothrombin Time 11.6 Seconds (9.0-12.0)
[2020-03-02 01:57] LABS: Albumin Globulin Ratio 0.8 (0.9-2); Albumin Level 2.7 gm/dl (3.4-5.0); BUN Creatinine Ratio 19.1 (10-20); Bilirubin,Total 0.6 mg/dl (0.2-1); C Reactive Protein 2.24 mg/dl (0-0.29); Calcium 8.8 mg/dl (8.5-10.1); Creatinine Clr Calc Pharmacy 130.5 ml/min; Est GFR (African American) 112.7; Est GFR (Non-African American) 97.2; Globulin 3.6 gm/dl (2.5-4.0); Magnesium 2.3 mg/dl (1.8-2.4); Potassium 3.3 mmol/L (3.5-5.1); Total Protein 6.3 gm/dl (6.4-8.2)
[2020-03-02] MEDS ORDERED: INSULIN ASPART 100 UNITS/ML 3 ML PEN SC SCH (02:00)
[2020-03-02] MEDS ORDERED: POTASSIUM CHLORIDE 20 MEQ TABCR PO STA ×2 (02:18→13:46)
[2020-03-02 06:57] LABS: Estimated Average Glucose 344 mg/dl; Hemoglobin A1C 13.6 % (4.5-5.6)
[2020-03-02] MEDS: INSULIN ASPART 100 UNITS/ML 3 ML PEN SC SCH ×4 (07:41→20:44)
[2020-03-02] MEDS: METOPROLOL TARTRATE 25 MG TAB PO SCH ×4 (07:42→20:45)
[2020-03-02] MEDS: HEPARIN SODIUM/DEXTROSE 25,000 UNITS/500 ML BAG IV SCH ×2 (07:45→20:42)
[2020-03-02 07:54] LABS: Basophils # (auto) 0.02 K/uL (0-0.2); Basophils % (auto) 0.2 %; Eosinophils # (auto) 0.09 K/uL (0-0.5); Eosinophils % (auto) 1.1 %; Hematocrit (blood only) 47.9 % (42-52); Hemoglobin 15.3 g/dL (14.0-18.0); Immature Granulocytes # (auto) 0.02 K/uL (0.00-0.02); Immature Granulocytes % (auto) 0.2 %; Lymphocytes # (auto) 1.77 K/uL (1.2-3.4); Lymphocytes % (auto) 21.2 %; Mean Corpuscular Hgb Conc 31.9 g/dL (32-36); Mean Corpuscular Volume 93.9 fL (80-100); Mean Platelet Volume 12.5 fL (7.4-10.4); Monocytes # (auto) 0.55 K/uL (0.11-0.59); Monocytes % (auto) 6.6 %; Neutrophils # (auto) 5.91 K/uL (1.4-6.5); Neutrophils % (auto) 70.7 %; Platelet Count 171 K/uL (130-400); RDW Coefficient of Variation 15.2 % (11.5-14.5); RDW Standard Deviation 52.1 fL (36.4-46.3); White Blood Count 8.36 K/uL (4.8-10.8)
[2020-03-02] MEDS: INSULIN GLARGINE SOLOSTAR 100 UNITS/ML 3 ML PEN SC SCH (08:03)
[2020-03-02 08:18] LABS: Partial Thromboplastin Ratio 2.3
[2020-03-02 08:20] LABS: BUN Creatinine Ratio 19.1 (10-20); Calcium 9.1 mg/dl (8.5-10.1); Creatinine Clr Calc Pharmacy 136.1 ml/min; Est GFR (African American) 115.8; Est GFR (Non-African American) 99.9; Potassium 3.7 mmol/L (3.5-5.1)
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
[2020-03-02 08:52] LABS: Partial Thromboplastin Time 63.3 Seconds (21.0-31.0)
[2020-03-02] MEDS ORDERED: INSULIN HUMAN REGULAR PER UNIT 8 UNITS in SYRINGE 7.92 ML IV ONE (12:00)
--- NOTE | 2020-03-02 13:39 | Hospitalist Progress Note ---
Date of Service March 02, 2020 Assessment & Plan (1) Atrial fibrillation with RVR: - Started on diltiazem gtt in the ED - Increase outpatient beta miguel from Lopressor 25 mg BID to TID - Starting heparin gtt with no bolus - Consult cardiology-appreciate input and recommendation -Remains on Cardizem drip and -Beta-miguel has been increased to Lopressor 25 mg 4 times daily -Remains free of any cardiac symptoms and the heart rate is improving (2) Hyperglycemia due to type 2 diabetes mellitus: Sugar upon arrive was >500 but pt apparently ate cheeseburger just prior to arrival. States that he only checks his sugars occasionally at home but when he does they are "high" - Consult pharmacy for glycemic management - Holding outpatient Metformin and Trulicity -Globin A1c is very high at 13.6 - Diabetic diet (3) Hypomagnesemia: Repleted IV by ED - will recheck tonight (4) Pulmonary embolus: Chronic clot burden that may in part be related to non-compliance with anticoagulation vs ineffectiveness of the Eliquis due to obesity - Staring heparin gtt and holding Eliquis for now. -CTA did not show chronic pulmonary embolism -Continue intravenous heparin for now and seems to be Eliquis will be the best choice for him for long-term anticoagulation because of noncompliance (5) Deep vein thrombosis: Clot in LLE appears to be chronic and imaging from 2018 showed acute clot. Unclear if this is the etiology of the increased swelling - will continue to monitor. - Check procalcitonin although pt denies fevers, chills, sweats, purulent drainage/wounds on LE -CT ultrasound did show chronic DVTs (6) Hypertension: Increasing beta-miguel for afib with RVR and pt on diltiazem drip - continue to monitor (7) Abnormal thyroid function test: TSH is minimally high with normal T3 and T4 Nothing significant does not need any medicine for (8) Noncompliance: Likely contributing to multiple medical issues. Continue to emphasize the importance of taking medications as prescribed throughout this admission. Admission and Anticipated Discharge Date Admission Date: March 01, 2020 Subjective 03/02/2020 The patient was seen and examined in telemetry unit He has been complaining of increasing swelling of the left leg for which he was admitted to the hospital Denies any palpitation or shortness of breath Review of Systems Review of Systems: All systems reviewed and are unremarkable except as noted below Constitutional: + weakness and + weight gain Cardiovascular: + edema (Bilateral leg edema more on the left than the right); no chest pain and no palpitations Physical Exam Physical Exam: Lying in bed comfortably Constitutional: well developed, well nourished and + obese; no acute distress and not ill appearing Eyes: PERRL, conjunctivae normal, anicteric sclerae ENMT: external ear and nose normal, oropharynx normal Neck: trachea midline, no thyromegaly Respiratory: normal respiratory effort; no respiratory distress Auscultation: lungs clear to auscultation bilaterally Cardiovascular: Rate/Rhythm: + abnormal rate and + abnormal rhythm Heart Sounds: no murmur Extremities: + edema (Bilateral lower extremity edema, left more than the right with chronic skin changes) Gastrointestinal (Abdomen): Inspection/Auscultation: abdomen normal to inspection and normal bowel sounds; abdomen not distended Pe rcussion/Palpation: abdomen soft Musculoskeletal: No acute arthritis involving any joints Neurologic: moves all extremities; no focal motor deficits Psychiatric: A+Ox3, euthymic affect Lymphatic: no cervical or axillary lymphadenopathy Results & Data Results & Data ([facility]) Vital Signs (Past 12 Hours) Vital Signs Temp Pulse Pulse Resp BP Pulse Ox 03/02/20 11:17 36.7 C 84 20 109/78 90 03/02/20 07:39 97 H 03/02/20 07:08 36.6 C 112 H 20 111/86 94 03/02/20 03:27 36.7 C 103 H 18 141/90 H 93 Laboratory Results Short CBC 03/01/20 03/02/20 03/02/20 Range/Units 13:34 01:03 07:47 WBC 8.49 9.17 8.36 (4.8-10.8) K/uL Hgb 16.7 14.7 15.3 (14.0-18.0) g/dL Hct 52.0 45.9 47.9 (42-52) % Plt Count 177 184 171 (130-400) K/uL BMP 03/01/20 03/02/20 03/02/20 13:34 01:03 07:47 Sodium 134 L 140 137 Potassium 4.1 3.3 L D 3.7 Chloride 99 103 100 Carbon Dioxide 28 32 33 H BUN 14 18 17 Creatinine 1.30 0.91 D 0.87 Glucose 563 H* 154 H 226 H Calcium 9.2 8.8 9.1 Cardiac Enzymes 03/01/20 Range/Units 13:34 Troponin I < 0.015 (0-0.045) ng/ml Liver Function 03/01/20 03/02/20 Range/Units 13:34 01:03 Total Bilirubin 0.5 0.6 (0.2-1) mg/dl AST 14 L 12 L (15-37) U/L ALT 42 35 (12-78) U/L Alkaline Phosphatase 76 63 (45-117) U/L Albumin 3.0 L 2.7 L (3.4-5.0) gm/dl Medications Administered Current Inpatient Medications Acetaminophen (Acetaminophen 325 Mg Tab) 650 mg PO Q4H PRN PRN Reason: Pain or Fever Stop: 03/31/20 18:12 Dextrose (Dextrose 50% 50 Ml Syringe) 25 - 50 ml IV UD PRN; Protocol PRN Reason: Hypoglycemia Protocol Stop: 03/31/20 18:12 Glucagon (Glucagon For Inj 1 Mg Vial) 1 mg SQ UD PRN; Protocol PRN Reason: Hypoglycemia Protocol Stop: 03/31/20 18:12 Glucose (Glucose 10 Tabs/Tube) 4 - 8 tabs PO UD PRN; Protocol PRN Reason: Hypoglycemia Protocol Stop: 03/31/20 18:12 Glucose (Glucose 40% Gel 15 Gm Tube) 15 - 30 gm PO UD PRN; Protocol PRN Reason: Hypoglycemia Protocol Stop: 03/31/20 18:12 Diltiazem HCl 125 mg/ Dextrose 125 mls @ 15 mls/hr IV .[id number] [facility]; Protocol Stop: 03/31/20 16:14 Last Admin: 03/02/20 11:46 Dose: 10 mg/hr, 10 mls/hr Documented by: Heparin Sodium/Dextrose (Heparin Sodium/Dextrose) 25,000 units in 500 mls @ 39 mls/hr IV .[id number] [facility]; Protocol Stop: 03/31/20 18:12 Last Titration: 03/02/20 09:16 Dose: 1,950 units/hr, 39 mls/hr Documented by: Insulin Aspart (Insulin Aspart 100 Units/Ml 3 Ml Pen) 0 units SC [facility] Stop: 03/31/20 18:44 Last Admin: 03/02/20 12:01 Dose: 19 units Documented by: Insulin Glargine (Insulin Glargine Solostar 100 Units/Ml 3 Ml Pen) 30 units SC DAILY [facility] Stop: 03/31/20 18:59 Last Admin: 03/02/20 08:03 Dose: 30 units Documented by: Metoprolol Tartrate (Metoprolol Tartrate 25 Mg Tab) 25 mg PO QID [facility] Stop: 04/01/20 12:59 Last Admin: 03/02/20 13:08 Dose: 25 mg Documented by: Miscellaneous (Carbohydrates For Hypoglycemia ) 15 - 30 gm PO UD PRN PRN Reason: Hypoglycemia Protocol Stop: 03/31/20 18:12 Miscellaneous Information (Pharmacy Glycemic Mgmt Consult) 1 ea N/A UD PRN PRN Reason: Consult Stop: 03/31/20 18:24 (1) Hyperglycemia due to type 2 diabetes mellitus Diabetes mellitus terminal manager insulin use: with terminal manager use Qualified Code(s): E11.65 - Type 2 diabetes mellitus with hyperglycemia; Z79.4 - tank terminal gauger (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) use of insulin (2) Pulmonary embolus Pulmonary embolism type: other Chronicity: acute Acute cor pulmonale presence: without acute cor pulmonale Qualified Code(s): I26.99 - Other pulmonary embolism without acute cor pulmonale (3) Deep vein thrombosis DVT location: lower extremity Affected thrombotic vein of extremity: unspecified vein of extremity Chronicity: chronic Laterality: left Qualified Code(s): I82.502 - Chronic embolism and thrombosis of unspecified deep veins of left lower extremity (4) Hypertension Hypertension type: essential hypertension Qualified Code(s): I10 - Essential (primary) hypertension
[2020-03-02] MEDS ORDERED: FUROSEMIDE 40 MG in SYRINGE 0 ML IV ONE (14:00)
--- NOTE | 2020-03-02 14:20 | Pharmacy Report ---
Pharmacy Glycemic Short Note 2 - Date of Service March 02, 2020 - Glycemic Short BSG Results (Last 24 hours): 03/01/20 03/01/20 03/01/20 13:34 15:38 17:53 Glucose 563 H* POC Glucose 430 H* 258 H 03/01/20 03/01/20 03/02/20 18:47 22:06 01:03 Glucose 154 H POC Glucose 276 H 275 H 03/02/20 03/02/20 03/02/20 02:02 07:07 07:47 Glucose 226 H POC Glucose 119 H 211 H 03/02/20 11:16 Glucose POC Glucose 307 H* OUTPATIENT ANTIDIABETIC REGIMEN: * A1c = 13.6% (03/02/20) * Lantus 30 units SC qAM * Humalog sliding scale TIDM * Trulicity 0.75 mg SC weekly on Mondays * Metformin 1 g PO daily w/ dinner ASSESSMENT: * DK is a 49 year old male admitted on 03/01 with atrial fibrillation with rapid ventricular response, severe hyperglycemia * Remains on diltiazem and heparin infusions * Patient continues to be hyperglycemic today. His fasting BSG was elevated (211 mg/dL). I attributed this to basal deficiency since basal insulin was significantly delayed yesterday, however lunch BSG was even further elevated at 307 mg/dL. * Will add a Lantus dose per scale at HS * Will tighten Novolog parameters * One time dose of regular insulin 8 units IV given with lunch coverage PLAN FOR INPATIENT GLYCEMIC CONTROL: * Holding outpatient oral diabetes medications * Basal insulin * Lantus 30 units SC daily * Lantus 0-10 units SQ HS (10 units for BSG > 180 mg/dL) * Bolus insulin - tighten CF & CR * NovoLog per scale ACHS or Q6hrs while NPO * Goal Range: Low 110 mg/dL - High 150 mg/dL * Correction Factor: 10 mg/dL/unit * Nutritional / Prandial insulin per carb ratio of 1 unit per 4 grams CHO consumed * Please note that the plan above was derived based on current level of insulin resistance and hospital stress. These recommendations are appropriate for inpatient admission only. Plan of care upon discharge will need to be reassessed to avoid potential outpatient hypo/hyperglycemia. Thank you.
[2020-03-02] MEDS ORDERED: INSULIN GLARGINE SOLOSTAR 100 UNITS/ML 3 ML PEN SC SCH (21:00)
[2020-03-03 06:15] LABS: Basophils # (auto) 0.03 K/uL (0-0.2); Basophils % (auto) 0.4 %; Eosinophils # (auto) 0.11 K/uL (0-0.5); Eosinophils % (auto) 1.6 %; Hematocrit (blood only) 46.5 % (42-52); Hemoglobin 14.6 g/dL (14.0-18.0); Lymphocytes # (auto) 1.71 K/uL (1.2-3.4); Lymphocytes % (auto) 24.2 %; Mean Corpuscular Hemoglobin 29.8 pg (25-34); Mean Corpuscular Hgb Conc 31.4 g/dL (32-36); Mean Corpuscular Volume 94.9 fL (80-100); Mean Platelet Volume 12.8 fL (7.4-10.4); Monocytes # (auto) 0.56 K/uL (0.11-0.59); Monocytes % (auto) 7.9 %; Neutrophils # (auto) 4.65 K/uL (1.4-6.5); Neutrophils % (auto) 65.9 %; Platelet Count 173 K/uL (130-400); RDW Coefficient of Variation 15.5 % (11.5-14.5); RDW Standard Deviation 53.4 fL (36.4-46.3); White Blood Count 7.06 K/uL (4.8-10.8)
[2020-03-03 06:42] LABS: BUN Creatinine Ratio 24.4 (10-20); Calcium 8.5 mg/dl (8.5-10.1); Creatinine Clr Calc Pharmacy 158.9 ml/min; Est GFR (African American) 123.1; Est GFR (Non-African American) 106.2; Potassium 3.5 mmol/L (3.5-5.1)
[2020-03-03 07:35] LABS: Partial Thromboplastin Ratio 2.7
[2020-03-03 07:38] LABS: Partial Thromboplastin Time 76.3 Seconds (21.0-31.0)
[2020-03-03] MEDS: INSULIN ASPART 100 UNITS/ML 3 ML PEN SC SCH ×4 (07:50→20:59)
[2020-03-03] MEDS: METOPROLOL TARTRATE 25 MG TAB PO SCH ×4 (07:53→20:57)
[2020-03-03] MEDS: dilTIAZem HCL 125 MG in DEXTROSE 5% 100 ML IV SCH (07:53)
[2020-03-03] MEDS ORDERED: INSULIN GLARGINE SOLOSTAR 100 UNITS/ML 3 ML PEN SC SCH (09:00)
[2020-03-03] MEDS: HEPARIN SODIUM/DEXTROSE 25,000 UNITS/500 ML BAG IV SCH ×3 (09:36→11:18)
[2020-03-03] MEDS ORDERED: SOTALOL HCL 80 MG TAB PO ONE (10:05)
--- NOTE | 2020-03-03 10:11 | Cardiology Progress Note ---
Date of Service March 03, 2020 Assessment & Plan (1) Atrial fibrillation with RVR: (2) History of DVT (deep vein thrombosis): (3) History of pulmonary embolism: The patient appears to be comfortable. He remains in atrial fibrillation with rate control. I think at this time we will start antiarrhythmic medication. I will stop the diltiazem and add sotalol 40 mg twice daily with the plan to titrate to 80 mg twice daily as tolerated. If the patient does not spontaneously convert to sinus rhythm, then we will consider cardioversion. I have also stopped his heparin and placed him back on Eliquis. Admission and Anticipated Discharge Date Admission Date: March 01, 2020 Subjective The patient had an uneventful night. No new cardiac complaints. Review of Systems Review of Systems: All systems reviewed & are unremarkable except as noted in HPI & below Nothing additional to add. Physical Exam Physical Exam: General: no acute distress and stated age Head: normocephalic, no masses, lesions, tenderness or abnormalities Eyes: conjunctiva are pink and non-injected, sclera clear Neck: supple, no adenopathy, no bruits, normal jugular venous pulse, no hepatojugular reflux Chest: normal shape and normal respiratory effort Lungs: clear to auscultation and percussion Cardiac Exam: - irregular rate & rhythm, no murmurs gallops or rubs - normal S1, normal S2 Pulses: 2(+) throughout Abdomen: abdomen soft, non-tender, no abnormal masses and no hepatosplenomegaly Musculoskeletal: no gait disturbance, no joint inflammation, no deforming arthritis Extremities: Chronic venous stasis changes of the lower extremities Neuro: grossly normal exam Results & Data ([facility]) Vital Signs (Past 12 Hours) Vital Signs Temp Pulse Pulse Resp BP Pulse Ox 03/03/20 07:20 36.7 C 115 H 20 113/89 94 03/03/20 03:05 36.8 C 109 H 20 115/78 93 03/03/20 00:37 80 03/02/20 23:09 37.0 C 86 18 113/87 92 Laboratory Results Laboratory Results - last 24 hr 03/02/20 03/02/20 03/02/20 11:16 16:21 20:16 WBC RBC Hgb Hct MCV MCH MCHC RDW Std Deviation RDW Coeff of Faustino Plt Count MPV Immature Gran % (Auto) Neut % (Auto) Lymph % (Auto) Sherman % (Auto) Eos % (Auto) Baso % (Auto) Neut # (Auto) Lymph # (Auto) Sherman # (Auto) Eos # (Auto) Baso # (Auto) Immature Gran # (Auto) APTT PTT Ratio Sodium Potassium Chloride Carbon Dioxide Anion Gap BUN Creatinine Est Cr Clr Drug Dosing Est GFR ( Amer) Est GFR (Non-Af Amer) BUN/Creatinine Ratio Glucose POC Glucose 307 H* 101 H 156 H Calcium 03/03/20 03/03/20 03/03/20 05:19 05:19 07:03 WBC 7.06 RBC 4.90 Hgb 14.6 Hct 46.5 MCV 94.9 MCH 29.8 MCHC 31.4 L RDW Std Deviation 53.4 H RDW Coeff of Faustino 15.5 H Plt Count 173 MPV 12.8 H Immature Gran % (Auto) 0.0 Neut % (Auto) 65.9 Lymph % (Auto) 24.2 Sherman % (Auto) 7.9 Eos % (Auto) 1.6 Baso % (Auto) 0.4 Neut # (Auto) 4.65 Lymph # (Auto) 1.71 Sherman # (Auto) 0.56 Eos # (Auto) 0.11 Baso # (Auto) 0.03 Immature Gran # (Auto) 0.00 APTT 76.3 H* PTT Ratio 2.7 Sodium 138 Potassium 3.5 Chloride 101 Carbon Dioxide 34 H Anion Gap 3.0 BUN 18 Creatinine 0.75 Est Cr Clr Drug Dosing 158.9 Est GFR ( Amer) 123.1 Est GFR (Non-Af Amer) 106.2 BUN/Creatinine Ratio 24.4 H Glucose 172 H POC Glucose Calcium 8.5 03/03/20 07:30 WBC RBC Hgb Hct MCV MCH MCHC RDW Std Deviation RDW Coeff of Faustino Plt Count MPV Immature Gran % (Auto) Neut % (Auto) Lymph % (Auto) Sherman % (Auto) Eos % (Auto) Baso % (Auto) Neut # (Auto) Lymph # (Auto) Sherman # (Auto) Eos # (Auto) Baso # (Auto) Immature Gran # (Auto) APTT PTT Ratio Sodium Potassium Chloride Carbon Dioxide Anion Gap BUN Creatinine Est Cr Clr Drug Dosing Est GFR ( Amer) Est GFR (Non-Af Amer) BUN/Creatinine Ratio Glucose POC Glucose 232 H Calcium Medications Administered Current Inpatient Medications Acetaminophen (Acetaminophen 325 Mg Tab) 650 mg PO Q4H PRN PRN Reason: Pain or Fever Stop: 03/31/20 18:12 Apixaban (Apixaban 5 Mg Tablet) 5 mg PO BID [facility] Stop: 04/02/20 10:14 Dextrose (Dextrose 50% 50 Ml Syringe) 25 - 50 ml IV UD PRN; Protocol PRN Reason: Hypoglycemia Protocol Stop: 03/31/20 18:12 Glucagon (Glucagon For Inj 1 Mg Vial) 1 mg SQ UD PRN; Protocol PRN Reason: Hypoglycemia Protocol Stop: 03/31/20 18:12 Glucose (Glucose 10 Tabs/Tube) 4 - 8 tabs PO UD PRN; Protocol PRN Reason: Hypoglycemia Protocol Stop: 03/31/20 18:12 Glucose (Glucose 40% Gel 15 Gm Tube) 15 - 30 gm PO UD PRN; Protocol PRN Reason: Hypoglycemia Protocol Stop: 03/31/20 18:12 Insulin Aspart (Insulin Aspart 100 Units/Ml 3 Ml Pen) 0 units SC ACHS [facility] Stop: 03/31/20 18:44 Last Admin: 03/03/20 07:50 Dose: 26 units Documented by: Insulin Glargine (Insulin Glargine Solostar 100 Units/Ml 3 Ml Pen) 40 units SC DAILY [facility] Stop: 04/02/20 08:59 Last Admin: 03/03/20 07:54 Dose: 40 units Documented by: Metoprolol Tartrate (Metoprolol Tartrate 25 Mg Tab) 25 mg PO QID [facility] Stop: 04/01/20 12:59 Last Admin: 03/03/20 07:53 Dose: 25 mg Documented by: Miscellaneous (Carbohydrates For Hypoglycemia ) 15 - 30 gm PO UD PRN PRN Reason: Hypoglycemia Protocol Stop: 03/31/20 18:12 Miscellaneous Information (Pharmacy Glycemic Mgmt Consult) 1 ea N/A UD PRN PRN Reason: Consult Stop: 03/31/20 18:24 Sotalol HCl (Sotalol Hcl 80 Mg Tab) 40 mg PO BID [facility] Stop: 04/02/20 10:14 Sotalol HCl (Sotalol Hcl 80 Mg Tab) 40 mg PO NOW ONE Stop: 03/03/20 10:06
--- NOTE | 2020-03-03 10:39 | Pharmacy Report ---
Pharmacy Glycemic Short Note 2 - Date of Service March 03, 2020 - Glycemic Short BSG Results (Last 24 hours): 03/02/20 03/02/20 03/02/20 11:16 16:21 20:16 Glucose POC Glucose 307 H* 101 H 156 H 03/03/20 03/03/20 05:19 07:30 Glucose 172 H POC Glucose 232 H OUTPATIENT ANTIDIABETIC REGIMEN: * A1c = 13.6% (03/02/20) * Lantus 30 units SC qAM * Humalog sliding scale TIDM * Trulicity 0.75 mg SC weekly on Mondays * Metformin 1 g PO daily w/ dinner ASSESSMENT: 03/03: * Roberth received 85 units of insulin yesterday * 30 units of basal * 55 units of bolus + 8 unit IV insulin bolus @ lunch * BSGs: 211, 307, 101, 156 mg/dL * Diltiazem and heparin infusions have been discontinued * Fasting BSG remains significantly above goal. Lantus will be increased ~30%. * Post prandial BSG control has improved. I suspect inadequate basal insulin may be contributing to these elevations. Continue same Novolog parameters for now. 03/02: * DK is a 49 year old male admitted on 03/01 with atrial fibrillation with rapid ventricular response, severe hyperglycemia * Remains on diltiazem and heparin infusions * Patient continues to be hyperglycemic today. His fasting BSG was elevated (211 mg/dL). I attributed this to basal deficiency since basal insulin was significantly delayed yesterday, however lunch BSG was even further elevated at 307 mg/dL. * Will add a Lantus dose per scale at HS * Will tighten Novolog parameters * One time dose of regular insulin 8 units IV given with lunch coverage PLAN FOR INPATIENT GLYCEMIC CONTROL: * Holding outpatient oral diabetes medications * Basal insulin - increase * Lantus 40 units SC daily * Bolus insulin * NovoLog per scale ACHS or Q6hrs while NPO * Goal Range: Low 110 mg/dL - High 150 mg/dL * Correction Factor: 10 mg/dL/unit * Nutritional / Prandial insulin per carb ratio of 1 unit per 4 grams CHO consumed * Please note that the plan above was derived based on current level of insulin resistance and hospital stress. These recommendations are appropriate for inpatient admission only. Plan of care upon discharge will need to be reassessed to avoid potential outpatient hypo/hyperglycemia. Thank you.
[2020-03-03] MEDS: APIXABAN 5 MG TABLET PO SCH ×2 (11:13→20:57)
--- NOTE | 2020-03-03 11:20 | Hospitalist Progress Note ---
Date of Service March 03, 2020 Assessment & Plan (1) Atrial fibrillation with RVR: - Started on diltiazem gtt in the ED - Increase outpatient beta miguel from Lopressor 25 mg BID to TID - Starting heparin gtt with no bolus - Consult cardiology-appreciate input and recommendation -Remains on Cardizem drip and -Beta-miguel has been increased to Lopressor 25 mg 4 times daily -Remains free of any cardiac symptoms and the heart rate is improving -Heart rate remains elevated. -Cardizem has been discontinued and sotalol added -We will continue current medications Bilateral leg edema Received 1 dose of Lasix yesterday Seems to be improving We will hold off any more Lasix now (2) Hyperglycemia due to type 2 diabetes mellitus: Sugar upon arrive was >500 but pt apparently ate cheeseburger just prior to arrival. States that he only checks his sugars occasionally at home but when he does they are "high" - Consult pharmacy for glycemic management - Holding outpatient Metformin and Trulicity -Globin A1c is very high at 13.6 - Diabetic diet (3) Hypomagnesemia: Repleted IV by ED (4) Pulmonary embolus: Chronic clot burden that may in part be related to non-compliance with anticoagulation vs ineffectiveness of the Eliquis due to obesity - Staring heparin gtt and holding Eliquis for now. -CTA did not show chronic pulmonary embolism -Continue intravenous heparin for now and seems to be Eliquis will be the best choice for him for long-term anticoagulation because of noncompliance -Eliquis has been restarted (5) Deep vein thrombosis: Clot in LLE appears to be chronic and imaging from 2018 showed acute clot. Unclear if this is the etiology of the increased swelling - will continue to monitor. - Check procalcitonin although pt denies fevers, chills, sweats, purulent drainage/wounds on LE -CT ultrasound did show chronic DVTs (6) Hypertension: Increasing beta-miguel for afib with RVR and pt on diltiazem drip - continue to monitor (7) Abnormal thyroid function test: TSH is minimally high with normal T3 and T4 Nothing significant does not need any medicine for (8) Noncompliance: Likely contributing to multiple medical issues. Continue to emphasize the importance of taking medications as prescribed throughout this admission. Admission and Anticipated Discharge Date Admission Date: March 01, 2020 Subjective 03/02/2020 The patient was seen and examined in telemetry unit He has been complaining of increasing swelling of the left leg for which he was admitted to the hospital Denies any palpitation or shortness of breath 03/03/2020 The patient was seen and examined in telemetry unit He remains in atrial fibrillation without any symptoms His edema seems to be a little improved Review of Systems Review of Systems: All systems reviewed and are unremarkable except as noted below Constitutional: + weakness and + weight gain Cardiovascular: + edema (Bilateral leg edema more on the left than the right); no chest pain and no palpitations Physical Exam Physical Exam: Lying in bed comfortably Constitutional: well developed, well nourished and + obese; no acute distress and not ill appearing Eyes: PERRL, conjunctivae normal, anicteric sclerae ENMT: external ear and nose normal, oropharynx normal Neck: trachea midline, no thyromegaly Respiratory: normal respiratory effort; no respiratory distress Auscultation: lungs clear to auscultation bilaterally Cardiovascular: Rate/Rhythm: + abnormal rate and + abnormal rhythm Heart Sounds: no murmur Extremities: + edema (Bilateral lower extremity edema, left more than the right with chronic skin changes) Gastrointestinal (Abdomen): Inspection/Auscultation: abdomen normal to inspection and normal bowel sounds; abdomen not distended Percu ssion/Palpation: abdomen soft Musculoskeletal: No acute arthritis involving any joints Neurologic: moves all extremities; no focal motor deficits Psychiatric: A+Ox3, euthymic affect Lymphatic: no cervical or axillary lymphadenopathy Results & Data Results & Data ([facility]) Vital Signs (Past 12 Hours) Vital Signs Temp Pulse Pulse Resp BP Pulse Ox 03/03/20 10:45 36.7 C 85 19 107/87 95 03/03/20 07:20 36.7 C 115 H 20 113/89 94 03/03/20 03:05 36.8 C 109 H 20 115/78 93 03/03/20 00:37 80 Laboratory Results Short CBC 03/03/20 Range/Units 05:19 WBC 7.06 (4.8-10.8) K/uL Hgb 14.6 (14.0-18.0) g/dL Hct 46.5 (42-52) % Plt Count 173 (130-400) K/uL BMP 03/03/20 05:19 Sodium 138 Potassium 3.5 Chloride 101 Carbon Dioxide 34 H BUN 18 Creatinine 0.75 Glucose 172 H Calcium 8.5 Medications Administered Current Inpatient Medications Acetaminophen (Acetaminophen 325 Mg Tab) 650 mg PO Q4H PRN PRN Reason: Pain or Fever Stop: 03/31/20 18:12 Apixaban (Apixaban 5 Mg Tablet) 5 mg PO BID [facility] Stop: 04/02/20 10:29 Last Admin: 03/03/20 11:13 Dose: 5 mg Documented by: Dextrose (Dextrose 50% 50 Ml Syringe) 25 - 50 ml IV UD PRN; Protocol PRN Reason: Hypoglycemia Protocol Stop: 03/31/20 18:12 Glucagon (Glucagon For Inj 1 Mg Vial) 1 mg SQ UD PRN; Protocol PRN Reason: Hypoglycemia Protocol Stop: 03/31/20 18:12 Glucose (Glucose 10 Tabs/Tube) 4 - 8 tabs PO UD PRN; Protocol PRN Reason: Hypoglycemia Protocol Stop: 03/31/20 18:12 Glucose (Glucose 40% Gel 15 Gm Tube) 15 - 30 gm PO UD PRN; Protocol PRN Reason: Hypoglycemia Protocol Stop: 03/31/20 18:12 Insulin Aspart (Insulin Aspart 100 Units/Ml 3 Ml Pen) 0 units SC ACHS [facility] Stop: 03/31/20 18:44 Last Admin: 03/03/20 07:50 Dose: 26 units Documented by: Insulin Glargine (Insulin Glargine Solostar 100 Units/Ml 3 Ml Pen) 40 units SC DAILY [facility] Stop: 04/02/20 08:59 Last Admin: 03/03/20 07:54 Dose: 40 units Documented by: Metoprolol Tartrate (Metoprolol Tartrate 25 Mg Tab) 25 mg PO QID [facility] Stop: 04/01/20 12:59 Last Admin: 03/03/20 07:53 Dose: 25 mg Documented by: Miscellaneous (Carbohydrates For Hypoglycemia ) 15 - 30 gm PO UD PRN PRN Reason: Hypoglycemia Protocol Stop: 03/31/20 18:12 Miscellaneous Information (Pharmacy Glycemic Mgmt Consult) 1 ea N/A UD PRN PRN Reason: Consult Stop: 03/31/20 18:24 Sotalol HCl (Sotalol Hcl 80 Mg Tab) 40 mg PO BID [facility] Stop: 04/02/20 20:59 (1) Hyperglycemia due to type 2 diabetes mellitus Diabetes mellitus nursing home insulin use: with nursing home use Qualified Code(s): E11.65 - Type 2 diabetes mellitus with hyperglycemia; 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
[2020-03-03] MEDS: CARBOHYDRATES FOR HYPOGLYCEMIA PO PRN (16:20)
[2020-03-03] MEDS ORDERED: SOTALOL HCL 80 MG TAB PO SCH (21:00)
[2020-03-04 06:36] LABS: Partial Thromboplastin Time 27.9 Seconds (21.0-31.0)
[2020-03-04 07:01] LABS: BUN Creatinine Ratio 20.1 (10-20); Creatinine Clr Calc Pharmacy 131.2 ml/min; Est GFR (African American) 112.7; Est GFR (Non-African American) 97.2; Magnesium 2.2 mg/dl (1.8-2.4); Potassium 4.1 mmol/L (3.5-5.1)
[2020-03-04] MEDS: INSULIN ASPART 100 UNITS/ML 3 ML PEN SC SCH ×4 (08:23→20:54)
[2020-03-04] MEDS: INSULIN GLARGINE SOLOSTAR 100 UNITS/ML 3 ML PEN SC SCH (08:23)
[2020-03-04] MEDS: APIXABAN 5 MG TABLET PO SCH ×2 (08:24→20:31)
[2020-03-04] MEDS: METOPROLOL TARTRATE 25 MG TAB PO SCH ×2 (08:24→20:31)
--- NOTE | 2020-03-04 08:59 | Cardiology Progress Note ---
Date of Service March 04, 2020 Assessment & Plan (1) Atrial fibrillation with RVR: (2) History of DVT (deep vein thrombosis): (3) History of pulmonary embolism: The patient remains in atrial fibrillation. He is tolerating sotalol and we were monitoring both his heart rhythm and QTc interval. I believe we can increase the sotalol to 80 mg twice daily. At the same time, I will reduce the metoprolol dose down to 25 mg twice daily. Admission and Anticipated Discharge Date Admission Date: March 01, 2020 Subjective The patient has no new cardiac complaints today. He had an uneventful night. Review of Systems Review of Systems: All systems reviewed & are unremarkable except as noted in HPI & below Nothing additional to add. Physical Exam Physical Exam: General: no acute distress and stated age Head: normocephalic, no masses, lesions, tenderness or abnormalities Eyes: conjunctiva are pink and non-injected, sclera clear Neck: supple, no adenopathy, no bruits, normal jugular venous pulse, no hepatojugular reflux Chest: normal shape and normal respiratory effort Lungs: clear to auscultation and percussion Cardiac Exam: - irregular rate & rhythm, no murmurs gallops or rubs - normal S1, normal S2 Pulses: 2(+) throughout Abdomen: abdomen soft, non-tender, no abnormal masses and no hepatosplenomegaly Musculoskeletal: no gait disturbance, no joint inflammation, no deforming arthritis Extremities: no edema and no cyanosis Neuro: grossly normal exam Results & Data ([facility]) Vital Signs (Past 12 Hours) Vital Signs Temp Pulse Resp BP Pulse Ox 03/04/20 06:25 36.7 C 91 H 18 122/91 96 03/04/20 02:47 36.5 C 98 H 19 110/74 95 03/03/20 23:13 36.6 C 99 H 19 119/84 95 Laboratory Results Laboratory Results - last 24 hr 03/03/20 03/03/20 03/03/20 11:09 16:18 16:36 APTT PTT Ratio Sodium Potassium Chloride Carbon Dioxide Anion Gap BUN Creatinine Est Cr Clr Drug Dosing Est GFR ( Amer) Est GFR (Non-Af Amer) BUN/Creatinine Ratio Glucose POC Glucose 137 H 65 L* 88 Calcium Magnesium 03/03/20 03/03/20 03/04/20 17:23 20:04 06:11 APTT 27.9 PTT Ratio 1.0 Sodium Potassium Chloride Carbon Dioxide Anion Gap BUN Creatinine Est Cr Clr Drug Dosing Est GFR ( Amer) Est GFR (Non-Af Amer) BUN/Creatinine Ratio Glucose POC Glucose 214 H 186 H Calcium Magnesium 03/04/20 03/04/20 06:11 07:15 APTT PTT Ratio Sodium 138 Potassium 4.1 D Chloride 101 Carbon Dioxide 36 H Anion Gap 1.0 L BUN 18 Creatinine 0.91 Est Cr Clr Drug Dosing 131.2 Est GFR ( Amer) 112.7 Est GFR (Non-Af Amer) 97.2 BUN/Creatinine Ratio 20.1 H Glucose 212 H POC Glucose 187 H Calcium 9.0 Magnesium 2.2 Diagnostic Findings EKG shows atrial fibrillation with controlled ventricular rate. The QTc is somewhere around 500 Medications Administered Current Inpatient Medications Acetaminophen (Acetaminophen 325 Mg Tab) 650 mg PO Q4H PRN PRN Reason: Pain or Fever Stop: 03/31/20 18:12 Apixaban (Apixaban 5 Mg Tablet) 5 mg PO BID [facility] Stop: 04/02/20 10:29 Last Admin: 03/04/20 08:24 Dose: 5 mg Documented by: Dextrose (Dextrose 50% 50 Ml Syringe) 25 - 50 ml IV UD PRN; Protocol PRN Reason: Hypoglycemia Protocol Stop: 03/31/20 18:12 Glucagon (Glucagon For Inj 1 Mg Vial) 1 mg SQ UD PRN; Protocol PRN Reason: Hypoglycemia Protocol Stop: 03/31/20 18:12 Glucose (Glucose 10 Tabs/Tube) 4 - 8 tabs PO UD PRN; Protocol PRN Reason: Hypoglycemia Protocol Stop: 03/31/20 18:12 Glucose (Glucose 40% Gel 15 Gm Tube) 15 - 30 gm PO UD PRN; Protocol PRN Reason: Hypoglycemia Protocol Stop: 03/31/20 18:12 Insulin Aspart (Insulin Aspart 100 Units/Ml 3 Ml Pen) 0 units SC ACHS [facility] Stop: 03/31/20 18:44 Last Admin: 03/04/20 08:23 Dose: 10 units Documented by: Insulin Glargine (Insulin Glargine Solostar 100 Units/Ml 3 Ml Pen) 45 units SC DAILY [facility] Stop: 04/02/20 08:59 Last Admin: 03/04/20 08:23 Dose: 45 units Documented by: Metoprolol Tartrate (Metoprolol Tartrate 25 Mg Tab) 25 mg PO BID [facility] Stop: 04/03/20 08:59 Miscellaneous (Carbohydrates For Hypoglycemia ) 15 - 30 gm PO UD PRN PRN Reason: Hypoglycemia Protocol Stop: 03/31/20 18:12 Last Admin: 03/03/20 16:20 Dose: 15 gm Documented by: Miscellaneous Information (Pharmacy Glycemic Mgmt Consult) 1 ea N/A UD PRN PRN Reason: Consult Stop: 03/31/20 18:24 Sotalol HCl (Sotalol Hcl 80 Mg Tab) 80 mg PO BID [facility] Stop: 04/02/20 20:59
[2020-03-04] MEDS: SOTALOL HCL 80 MG TAB PO SCH ×2 (09:13→20:30)
[2020-03-04] MEDS: FUROSEMIDE 40 MG in SYRINGE 0 ML IV SCH (11:14)
--- NOTE | 2020-03-04 11:42 | Hospitalist Progress Note ---
Date of Service March 04, 2020 Assessment & Plan (1) Atrial fibrillation with RVR: - Started on diltiazem gtt in the ED - Increase outpatient beta miguel from Lopressor 25 mg BID to TID - Starting heparin gtt with no bolus - Consult cardiology-appreciate input and recommendation -Remains on Cardizem drip and -Beta-miguel has been increased to Lopressor 25 mg 4 times daily -Remains free of any cardiac symptoms and the heart rate is improving -Heart rate remains elevated. -Cardizem has been discontinued and sotalol added -We will continue current medications -Heart rate seems to be controlled with sotalol the dose of which has been increased with decreasing dose of Lopressor Bilateral leg edema Received 1 dose of Lasix yesterday Seems to be improving Will try a day or 2 more of intravenous Lasix and see if that helps (2) Hyperglycemia due to type 2 diabetes mellitus: Sugar upon arrive was >500 but pt apparently ate cheeseburger just prior to arrival. States that he only checks his sugars occasionally at home but when he does they are "high" - Consult pharmacy for glycemic management - Holding outpatient Metformin and Trulicity -Globin A1c is very high at 13.6 - Diabetic diet (3) Hypomagnesemia: Repleted IV by ED (4) Pulmonary embolus: Chronic clot burden that may in part be related to non-compliance with anticoagulation vs ineffectiveness of the Eliquis due to obesity - Staring heparin gtt and holding Eliquis for now. -CTA did not show chronic pulmonary embolism -Continue intravenous heparin for now and seems to be Eliquis will be the best choice for him for long-term anticoagulation because of noncompliance -Eliquis has been restarted (5) Deep vein thrombosis: Clot in LLE appears to be chronic and imaging from 2018 showed acute clot. Unclear if this is the etiology of the increased swelling - will continue to monitor. - Check procalcitonin although pt denies fevers, chills, sweats, purulent drainage/wounds on LE - ultrasound did show chronic DVTs (6) Hypertension: Increasing beta-miguel for afib with RVR and pt on diltiazem drip - continue to monitor (7) Abnormal thyroid function test: TSH is minimally high with normal T3 and T4 Nothing significant does not need any medicine for (8) Noncompliance: Likely contributing to multiple medical issues. Continue to emphasize the importance of taking medications as prescribed throughout this admission. Admission and Anticipated Discharge Date Admission Date: March 01, 2020 Subjective 03/02/2020 The patient was seen and examined in telemetry unit He has been complaining of increasing swelling of the left leg for which he was admitted to the hospital Denies any palpitation or shortness of breath 03/03/2020 The patient was seen and examined in telemetry unit He remains in atrial fibrillation without any symptoms His edema seems to be a little improved 03/04/2020 The patient was seen and examined in telemetry unit He denies any complaints today and the heart rate is controlled He still has the edema of the legs without any pain Review of Systems Review of Systems: All systems reviewed and are unremarkable except as noted below Constitutional: + weakness and + weight gain Cardiovascular: + edema (Bilateral leg edema more on the left than the right); no chest pain and no palpitations Physical Exam Physical Exam: Lying in bed comfortably Constitutional: well developed, well nourished and + obese; no acute distress and not ill appearing Eyes: PERRL, conjunctivae normal, anicteric sclerae ENMT: external ear and nose normal, oropharynx normal Neck: trachea midline, no thyromegaly Respiratory: normal respiratory effort; no respiratory distress Auscultation: lungs clear to auscultation bilaterally Cardiovascular: Rate/Rhythm: + abnormal rate and + abnormal rhythm Heart Sounds: no murmur Extremities: + edema (Bilateral lower extremity edema, left more than the right with chronic skin changes) Gastrointestinal (Abdomen): Inspection/Auscultation: abdomen normal to inspection and normal bowel sounds; abdomen not distended Percussion/Palpation: abdomen soft Musculoskeletal: No acute arthritis in any joints Neurologic: moves all extremities; no focal motor deficits Psychiatric: A+Ox3, euthymic affect Lymphatic: no cervical or axillary lymphadenopathy Results & Data Results & Data ([facility]) Vital Signs (Past 12 Hours) Vital Signs Temp Pulse Resp BP Pulse Ox 03/04/20 10:56 36.8 C 74 19 106/76 95 03/04/20 06:25 36.7 C 91 H 18 122/91 96 03/04/20 02:47 36.5 C 98 H 19 110/74 95 Laboratory Results [facility] 03/04/20 06:11 Sodium 138 Potassium 4.1 D Chloride 101 Carbon Dioxide 36 H BUN 18 Creatinine 0.91 Glucose 212 H Calcium 9.0 Medications Administered Current Inpatient Medications Acetaminophen (Acetaminophen 325 Mg Tab) 650 mg PO Q4H PRN PRN Reason: Pain or Fever Stop: 03/31/20 18:12 Apixaban (Apixaban 5 Mg Tablet) 5 mg PO BID NENA Stop: 04/02/20 10:29 Last Admin: 03/04/20 08:24 Dose: 5 mg Documented by: Dextrose (Dextrose 50% 50 Ml Syringe) 25 - 50 ml IV UD PRN; Protocol PRN Reason: Hypoglycemia Protocol Stop: 03/31/20 18:12 Glucagon (Glucagon For Inj 1 Mg Vial) 1 mg SQ UD PRN; Protocol PRN Reason: Hypoglycemia Protocol Stop: 03/31/20 18:12 Glucose (Glucose 10 Tabs/Tube) 4 - 8 tabs PO UD PRN; Protocol PRN Reason: Hypoglycemia Protocol Stop: 03/31/20 18:12 Glucose (Glucose 40% Gel 15 Gm Tube) 15 - 30 gm PO UD PRN; Protocol PRN Reason: Hypoglycemia Protocol Stop: 03/31/20 18:12 Furosemide 40 mg/ Syringe 4 mls @ 4 mls/min IV DAILY NENA Stop: 04/03/20 09:59 Last Admin: 03/04/20 11:14 Dose: 4 mls/min Documented by: Insulin Aspart (Insulin Aspart 100 Units/Ml 3 Ml Pen) 0 units SC ACHS NENA Stop: 03/31/20 18:44 Last Admin: 03/04/20 08:23 Dose: 10 units Documented by: Insulin Glargine (Insulin Glargine Solostar 100 Units/Ml 3 Ml Pen) 45 units SC DAILY NENA Stop: 04/02/20 08:59 Last Admin: 03/04/20 08:23 Dose: 45 units Documented by: Metoprolol Tartrate (Metoprolol Tartrate 25 Mg Tab) 25 mg PO BID NENA Stop: 04/03/20 20:59 Miscellaneous (Carbohydrates For Hypoglycemia ) 15 - 30 gm PO UD PRN PRN Reason: Hypoglycemia Protocol Stop: 03/31/20 18:12 Last Admin: 03/03/20 16:20 Dose: 15 gm Documented by: Miscellaneous Information (Pharmacy Glycemic Mgmt Consult) 1 ea N/A UD PRN PRN Reason: Consult Stop: 03/31/20 18:24 Sotalol HCl (Sotalol Hcl 80 Mg Tab) 80 mg PO BID NENA Stop: 04/02/20 20:59 Last Admin: 03/04/20 09:13 Dose: 80 mg Documented by: (1) Hyperglycemia due to type 2 diabetes mellitus Diabetes mellitus usp insulin use: with usp use Qualified Code(s): E11.65 - Type 2 diabetes mellitus with hyperglycemia; 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
--- NOTE | 2020-03-04 13:54 | Pharmacy Report ---
Pharmacy Glycemic Short Note 2 - Date of Service March 04, 2020 - Glycemic Short BSG Results (Last 24 hours): 03/03/20 03/03/20 03/03/20 16:18 16:36 17:23 Glucose POC Glucose 65 L* 88 214 H 03/03/20 03/04/20 03/04/20 20:04 06:11 07:15 Glucose 212 H POC Glucose 186 H 187 H 03/04/20 11:07 Glucose POC Glucose 281 H OUTPATIENT ANTIDIABETIC REGIMEN: * A1c = 13.6% (03/02/20) * Lantus 30 units SC qAM * Humalog sliding scale TIDM * Trulicity 0.75 mg SC weekly on Mondays * Metformin 1 g PO daily w/ dinner ASSESSMENT: 03/04: * Pt received 100 units of insulin yesterday * 40 units of basal * 60 units of bolus * BSGs [id number] * Fasting is trending down but still above goal, will titrate lantus ~13% today * Patient did have an episode of hypoglycemia yesterday with dinner, carb ratio was loosened to 5 and will continue with this * BSG elevated at lunch today, however, insulin administered ~0830. Did loosen correction factor to reduce chances of hypoglycemia with dinner. 03/03: * Roberth received 85 units of insulin yesterday * 30 units of basal * 55 units of bolus + 8 unit IV insulin bolus @ lunch * BSGs: 211, 307, 101, 156 mg/dL * Diltiazem and heparin infusions have been discontinued * Fasting BSG remains significantly above goal. Lantus will be increased ~30%. * Post prandial BSG control has improved. I suspect inadequate basal insulin may be contributing to these elevations. Continue same Novolog parameters for now. 03/02: * DK is a 49 year old male admitted on 03/01 with atrial fibrillation with rapid ventricular response, severe hyperglycemia * Remains on diltiazem and heparin infusions * Patient continues to be hyperglycemic today. His fasting BSG was elevated (211 mg/dL). I attributed this to basal deficiency since basal insulin was significantly delayed yesterday, however lunch BSG was even further elevated at 307 mg/dL. * Will add a Lantus dose per scale at HS * Will tighten Novolog parameters * One time dose of regular insulin 8 units IV given with lunch coverage PLAN FOR INPATIENT GLYCEMIC CONTROL: * Holding outpatient oral diabetes medications * Basal insulin - increase * Lantus 45 units SC daily * Bolus insulin * NovoLog per scale ACHS or Q6hrs while NPO * Goal Range: Low 110 mg/dL - High 150 mg/dL * Correction Factor: 12 mg/dL/unit * Nutritional / Prandial insulin per carb ratio of 1 unit per 5 grams CHO consumed * Please note that the plan above was derived based on current level of insulin resistance and hospital stress. These recommendations are appropriate for inpatient admission only. Plan of care upon discharge will need to be reassessed to avoid potential outpatient hypo/hyperglycemia. Thank you.
--- NOTE | 2020-03-04 16:45 | Electrocardiogram Report ---
Test Reason : Blood Pressure : / mmHG Vent. Rate : 092 BPM Atrial Rate : 202 BPM P-R Int : 000 ms QRS Dur : 080 ms QT Int : 406 ms P-R-T Axes : 000 103 058 degrees QTc Int : 502 ms Atrial fibrillation Rightward axis Nonspecific ST abnormality Abnormal ECG When compared with ECG of 01-MAR-2020 13:23, Vent. rate has decreased BY 60 BPM Confirmed by Renzo Song ([id number]) on 03/04/2020 4:44:30 PM Referred By: Nissa Reed Confirmed By:Agapito Song
--- NOTE | 2020-03-04 17:01 | Electrocardiogram Report ---
Test Reason : Blood Pressure : / mmHG Vent. Rate : 095 BPM Atrial Rate : 000 BPM P-R Int : 000 ms QRS Dur : 074 ms QT Int : 400 ms P-R-T Axes : 000 100 078 degrees QTc Int : 502 ms Atrial fibrillation Rightward axis Nonspecific ST abnormality Abnormal ECG When compared with ECG of 03-MAR-2020 10:54, (unconfirmed) No significant change was found Confirmed by Renzo Song ([id number]) on 03/04/2020 5:01:33 PM Referred By: Nissa Reed Confirmed By:Agapito Song
[2020-03-04] MEDS: CARBOHYDRATES FOR HYPOGLYCEMIA PO PRN (20:27)
[2020-03-05 07:19] LABS: BUN Creatinine Ratio 20.5 (10-20); Calcium 8.6 mg/dl (8.5-10.1); Creatinine Clr Calc Pharmacy 135.8 ml/min; Est GFR (African American) 115.3; Est GFR (Non-African American) 99.5; Magnesium 2.4 mg/dl (1.8-2.4); Potassium 4.1 mmol/L (3.5-5.1)
[2020-03-05] MEDS ORDERED: INSULIN ASPART 100 UNITS/ML 3 ML PEN SC SCH ×2 (07:30→11:30)
[2020-03-05] MEDS: METOPROLOL TARTRATE 25 MG TAB PO SCH (08:00)
[2020-03-05] MEDS: FUROSEMIDE 40 MG in SYRINGE 0 ML IV SCH (08:01)
[2020-03-05] MEDS: SOTALOL HCL 80 MG TAB PO SCH (08:01)
[2020-03-05] MEDS: APIXABAN 5 MG TABLET PO SCH (08:01)
[2020-03-05] MEDS: INSULIN GLARGINE SOLOSTAR 100 UNITS/ML 3 ML PEN SC SCH (08:02)
--- NOTE | 2020-03-05 09:34 | Cardiology Progress Note ---
Date of Service March 05, 2020 Assessment & Plan (1) Atrial fibrillation with RVR: (2) History of DVT (deep vein thrombosis): (3) History of pulmonary embolism: The patient has tolerated the sotalol load. He continues to be in atrial fibrillation with adequate rate control. Given his history of questionable compliance, especially with anticoagulation, along with the ongoing history of DVTs, I believe it is best that we discharge him today on sotalol metoprolol and Eliquis. I will arrange follow-up through our clinic for several weeks and if the patient remains on his medications then we can bring him back for an elective cardioversion. Admission and Anticipated Discharge Date Admission Date: March 01, 2020 Subjective Patient had an uneventful night. No new cardiac complaints. Review of Systems Review of Systems: All systems reviewed & are unremarkable except as noted in HPI & below Nothing additional to add. Physical Exam Physical Exam: General: no acute distress and stated age Head: normocephalic, no masses, lesions, tenderness or abnormalities Eyes: conjunctiva are pink and non-injected, sclera clear Neck: supple, no adenopathy, no bruits, normal jugular venous pulse, no hepatojugular reflux Chest: normal shape and normal respiratory effort Lungs: clear to auscultation and percussion Cardiac Exam: - irregular rate & rhythm, no murmurs gallops or rubs - normal S1, normal S2 Pulses: 2(+) throughout Abdomen: abdomen soft, non-tender, no abnormal masses and no hepatosplenomegaly Musculoskeletal: no gait disturbance, no joint inflammation, no deforming arthritis Extremities: no edema and no cyanosis Neuro: grossly normal exam Results & Data ([facility]) Vital Signs (Past 12 Hours) Vital Signs Temp Pulse Resp BP Pulse Ox 03/05/20 07:11 36.3 C L 87 18 116/91 96 03/05/20 06:52 36.6 C 76 20 126/89 96 03/05/20 03:27 36.9 C 92 H 19 121/88 97 03/04/20 23:10 36.6 C 87 18 113/79 93 Laboratory Results Laboratory Results - last 24 hr 03/04/20 03/04/20 03/04/20 11:07 16:33 20:26 Sodium Potassium Chloride Carbon Dioxide Anion Gap BUN Creatinine Est Cr Clr Drug Dosing Est GFR ( Amer) Est GFR (Non-Af Amer) BUN/Creatinine Ratio Glucose POC Glucose 281 H 230 H 63 L* Calcium Magnesium Specimen Hemolysis 03/04/20 03/05/20 03/05/20 20:42 06:18 07:38 Sodium 140 Potassium 4.1 Chloride 103 Carbon Dioxide 35 H Anion Gap 2.0 L BUN 18 Creatinine 0.88 Est Cr Clr Drug Dosing 135.8 Est GFR ( Amer) 115.3 Est GFR (Non-Af Amer) 99.5 BUN/Creatinine Ratio 20.5 H Glucose 165 H POC Glucose 80 152 H Calcium 8.6 Magnesium 2.4 Specimen Hemolysis Medications Administered Current Inpatient Medications Acetaminophen (Acetaminophen 325 Mg Tab) 650 mg PO Q4H PRN PRN Reason: Pain or Fever Stop: 03/31/20 18:12 Apixaban (Apixaban 5 Mg Tablet) 5 mg PO BID NENA Stop: 04/02/20 10:29 Last Admin: 03/05/20 08:01 Dose: 5 mg Documented by: Dextrose (Dextrose 50% 50 Ml Syringe) 25 - 50 ml IV UD PRN; Protocol PRN Reason: Hypoglycemia Protocol Stop: 03/31/20 18:12 Glucagon (Glucagon For Inj 1 Mg Vial) 1 mg SQ UD PRN; Protocol PRN Reason: Hypoglycemia Protocol Stop: 03/31/20 18:12 Glucose (Glucose 10 Tabs/Tube) 4 - 8 tabs PO UD PRN; Protocol PRN Reason: Hypoglycemia Protocol Stop: 03/31/20 18:12 Glucose (Glucose 40% Gel 15 Gm Tube) 15 - 30 gm PO UD PRN; Protocol PRN Reason: Hypoglycemia Protocol Stop: 03/31/20 18:12 Furosemide 40 mg/ Syringe 4 mls @ 4 mls/min IV DAILY NENA Stop: 04/03/20 09:59 Last Admin: 03/05/20 08:01 Dose: 4 mls/min Documented by: Insulin Aspart (Insulin Aspart 100 Units/Ml 3 Ml Pen) 0 units SC DAILY@0730 NENA Stop: 04/04/20 07:29 Last Admin: 03/05/20 08:04 Dose: 7 units Documented by: Insulin Aspart (Insulin Aspart 100 Units/Ml 3 Ml Pen) 0 units SC TID@1130,1630,2100 [facility] Stop: 04/04/20 11:29 Insulin Glargine (Insulin Glargine Solostar 100 Units/Ml 3 Ml Pen) 45 units SC DAILY NENA Stop: 04/02/20 08:59 Last Admin: 03/05/20 08:02 Dose: 45 units Documented by: Metoprolol Tartrate (Metoprolol Tartrate 25 Mg Tab) 25 mg PO BID NENA Stop: 04/03/20 20:59 Last Admin: 03/05/20 08:00 Dose: 25 mg Documented by: Miscellaneous (Carbohydrates For Hypoglycemia ) 15 - 30 gm PO UD PRN PRN Reason: Hypoglycemia Protocol Stop: 03/31/20 18:12 Last Admin: 03/04/20 20:27 Dose: 15 gm Documented by: Miscellaneous Information (Pharmacy Glycemic Mgmt Consult) 1 ea N/A UD PRN PRN Reason: Consult Stop: 03/31/20 18:24 Sotalol HCl (Sotalol Hcl 80 Mg Tab) 80 mg PO BID NENA Stop: 04/02/20 20:59 Last Admin: 03/05/20 08:01 Dose: 80 mg Documented by:
--- NOTE | 2020-03-05 11:55 | Hospitalist Progress Note ---
Date of Service March 05, 2020 Assessment & Plan (1) Atrial fibrillation with RVR: - Started on diltiazem gtt in the ED - Increase outpatient beta miguel from Lopressor 25 mg BID to TID - Starting heparin gtt with no bolus - Consult cardiology-appreciate input and recommendation -Remains on Cardizem drip and -Beta-miguel has been increased to Lopressor 25 mg 4 times daily -Remains free of any cardiac symptoms and the heart rate is improving -Heart rate remains elevated. -Cardizem has been discontinued and sotalol added -We will continue current medications -Heart rate seems to be controlled with sotalol the dose of which has been increased with decreasing dose of Lopressor -Heart rate is controlled with increasing dose of sotalol -Denies any other acute symptoms and the patient will be discharged home this afternoon Bilateral leg edema Received 1 dose of Lasix yesterday Seems to be improving Will try a day or 2 more of intravenous Lasix and see if that helps Advised to elevate legs while in bed and ambulate whenever possible (2) Hyperglycemia due to type 2 diabetes mellitus: Sugar upon arrive was >500 but pt apparently ate cheeseburger just prior to arrival. States that he only checks his sugars occasionally at home but when he does they are "high" - Consult pharmacy for glycemic management - Holding outpatient Metformin and Trulicity -Globin A1c is very high at 13.6 - Diabetic diet (3) Hypomagnesemia: Repleted IV by ED (4) Pulmonary embolus: Chronic clot burden that may in part be related to non-compliance with anticoagulation vs ineffectiveness of the Eliquis due to obesity - Staring heparin gtt and holding Eliquis for now. -CTA did not show chronic pulmonary embolism -Continue intravenous heparin for now and seems to be Eliquis will be the best choice for him for long-term anticoagulation because of noncompliance -Eliquis has been restarted -2 steps O2 saturation test-negative. Does not require any oxygen (5) Deep vein thrombosis: Clot in LLE appears to be chronic and imaging from 2018 showed acute clot. Unclear if this is the etiology of the increased swelling - will continue to monitor. - Check procalcitonin although pt denies fevers, chills, sweats, purulent drainage/wounds on LE - ultrasound did show chronic DVTs (6) Hypertension: Increasing beta-miguel for afib with RVR and pt on diltiazem drip - continue to monitor Blood pressure is controlled (7) Abnormal thyroid function test: TSH is minimally high with normal T3 and T4 Nothing significant does not need any medicine for (8) Noncompliance: Likely contributing to multiple medical issues. Continue to emphasize the importance of taking medications as prescribed throughout this admission. Admission and Anticipated Discharge Date Admission Date: March 01, 2020 Anticipated date of discharge: 03/05/20 Subjective 03/02/2020 The patient was seen and examined in telemetry unit He has been complaining of increasing swelling of the left leg for which he was admitted to the hospital Denies any palpitation or shortness of breath 03/03/2020 The patient was seen and examined in telemetry unit He remains in atrial fibrillation without any symptoms His edema seems to be a little improved 03/04/2020 The patient was seen and examined in telemetry unit He denies any complaints today and the heart rate is controlled He still has the edema of the legs without any pain 03/05/2020 Patient was seen and examined in telemetry unit He has been feeling a lot better and denies any significant symptoms Will be discharged home this afternoon Review of Systems Review of Systems: All systems reviewed and are unremarkable except as noted below Constitutional: + weakness and + weight gain Cardiovascular: + edema (Bilateral leg edema more on the left than the right); no chest pain and no palpitations Physical Exam Physical Exam: Lying in bed comfortably Constitutional: well developed, well nourished and + obese; no acute distress and not ill appearing Eyes: PERRL, conjunctivae normal, anicteric sclerae ENMT: external ear and nose normal, oropharynx normal Neck: trachea midline, no thyromegaly Respiratory: normal respiratory effort; no respiratory distress Auscultation: lungs clear to auscultation bilaterally Cardiovascular: Rate/Rhythm: + abnormal rate and + abnormal rhythm Heart Sounds: no murmur Extremities: + edema (Bilateral lower extremity edema, left more than the right with chronic skin changes) Gastrointestinal (Abdomen): Inspection/Auscultation: abdomen normal to inspect ion and normal bowel sounds; abdomen not distended Percussion/Palpation: abdomen soft Musculoskeletal: No acute arthritis involving any joints Neurologic: moves all extremities; no focal motor deficits Psychiatric: A+Ox3, euthymic affect Lymphatic: no cervical or axillary lymphadenopathy Results & Data Results & Data ([facility]) Vital Signs (Past 12 Hours) Vital Signs Temp Pulse Pulse Pulse Pulse Resp Resp 03/05/20 11:05 36.3 C L 81 18 03/05/20 10:22 109 H 108 H 88 18 03/05/20 07:11 36.3 C L 87 18 03/05/20 06:52 36.6 C 76 20 03/05/20 03:27 36.9 C 92 H 19 Resp Resp BP Pulse Ox Pulse Ox Pulse Ox Pulse Ox 03/05/20 11:05 122/86 93 03/05/20 10:22 18 18 90 92 95 03/05/20 07:11 116/91 96 03/05/20 06:52 126/89 96 03/05/20 03:27 121/88 97 Laboratory Results BMP 03/05/20 06:18 Sodium 140 Potassium 4.1 Chloride 103 Carbon Dioxide 35 H BUN 18 Creatinine 0.88 Glucose 165 H Calcium 8.6 Medications Administered Current Inpatient Medications Acetaminophen (Acetaminophen 325 Mg Tab) 650 mg PO Q4H PRN PRN Reason: Pain or Fever Stop: 03/31/20 18:12 Apixaban (Apixaban 5 Mg Tablet) 5 mg PO BID NENA Stop: 04/02/20 10:29 Last Admin: 03/05/20 08:01 Dose: 5 mg Documented by: Dextrose (Dextrose 50% 50 Ml Syringe) 25 - 50 ml IV UD PRN; Protocol PRN Reason: Hypoglycemia Protocol Stop: 03/31/20 18:12 Glucagon (Glucagon For Inj 1 Mg Vial) 1 mg SQ UD PRN; Protocol PRN Reason: Hypoglycemia Protocol Stop: 03/31/20 18:12 Glucose (Glucose 10 Tabs/Tube) 4 - 8 tabs PO UD PRN; Protocol PRN Reason: Hypoglycemia Protocol Stop: 03/31/20 18:12 Glucose (Glucose 40% Gel 15 Gm Tube) 15 - 30 gm PO UD PRN; Protocol PRN Reason: Hypoglycemia Protocol Stop: 03/31/20 18:12 Furosemide 40 mg/ Syringe 4 mls @ 4 mls/min IV DAILY NENA Stop: 04/03/20 09:59 Last Admin: 03/05/20 08:01 Dose: 4 mls/min Documented by: Insulin Aspart (Insulin Aspart 100 Units/Ml 3 Ml Pen) 0 units SC DAILY@0730 NENA Stop: 04/04/20 07:29 Last Admin: 03/05/20 08:04 Dose: 7 units Documented by: Insulin Aspart (Insulin Aspart 100 Units/Ml 3 Ml Pen) 0 units SC TID@1130,1630,2100 [facility] Stop: 04/04/20 11:29 Last Admin: 03/05/20 11:45 Dose: 8 units Documented by: Insulin Glargine (Insulin Glargine Solostar 100 Units/Ml 3 Ml Pen) 45 units SC DAILY NENA Stop: 04/02/20 08:59 Last Admin: 03/05/20 08:02 Dose: 45 units Documented by: Metoprolol Tartrate (Metoprolol Tartrate 25 Mg Tab) 25 mg PO BID NENA Stop: 04/03/20 20:59 Last Admin: 03/05/20 08:00 Dose: 25 mg Documented by: Miscellaneous (Carbohydrates For Hypoglycemia ) 15 - 30 gm PO UD PRN PRN Reason: Hypoglycemia Protocol Stop: 03/31/20 18:12 Last Admin: 03/04/20 20:27 Dose: 15 gm Documented by: Miscellaneous Information (Pharmacy Glycemic Mgmt Consult) 1 ea N/A UD PRN PRN Reason: Consult Stop: 03/31/20 18:24 Sotalol HCl (Sotalol Hcl 80 Mg Tab) 80 mg PO BID NENA Stop: 04/02/20 20:59 Last Admin: 03/05/20 08:01 Dose: 80 mg Documented by: (1) Hyperglycemia due to type 2 diabetes mellitus 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 Qualified Code(s): E11.65 - Type 2 diabetes mellitus with hyperglycemia; 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
--- NOTE | 2020-03-05 13:28 | Pharmacy Report ---
Pharmacy Glycemic Short Note 2 - Date of Service March 05, 2020 - Glycemic Short BSG Results (Last 24 hours): 03/04/20 03/04/20 03/04/20 16:33 20:26 20:42 Glucose POC Glucose 230 H 63 L* 80 03/05/20 03/05/20 03/05/20 06:18 07:38 11:32 Glucose 165 H POC Glucose 152 H 133 H OUTPATIENT ANTIDIABETIC REGIMEN: * A1c = 13.6% (03/02/20) * Lantus 30 units SC qAM * Humalog sliding scale TIDM * Trulicity 0.75 mg SC weekly on Mondays * Metformin 1 g PO daily w/ dinner ASSESSMENT: 03/05: * 97 units of insulin yesterday * 45 units of basal * 52 units of prandial/correctional * BSGs: [phone] * Fasting improved today with increase in lantus yesterday, just slightly above goal, will keep the same lantus dosing today, continue increase tomorrow if still elevated * Patient appears to have elevated lunch BSGs and then trends down in the evening, therefore setting tighter correction factor/carb ratio with breakfast and loosening with lunch/dinner 03/04: * Pt received 100 units of insulin yesterday * 40 units of basal * 60 units of bolus * BSGs [phone] * Fasting is trending down but still above goal, will titrate lantus ~13% today * Patient did have an episode of hypoglycemia yesterday with dinner, carb ratio was loosened to 5 and will continue with this * BSG elevated at lunch today, however, insulin administered ~0830. Did loosen correction factor to reduce chances of hypoglycemia with dinner. 03/03: * Roberth received 85 units of insulin yesterday * 30 units of basal * 55 units of bolus + 8 unit IV insulin bolus @ lunch * BSGs: 211, 307, 101, 156 mg/dL * Diltiazem and heparin infusions have been discontinued * Fasting BSG remains significantly above goal. Lantus will be increased ~30%. * Post prandial BSG control has improved. I suspect inadequate basal insulin may be contributing to these elevations. Continue same Novolog parameters for now. 03/02: * DK is a 49 year old male admitted on 10/2 with atrial fibrillation with rapid ventricular response, severe hyperglycemia * Remains on diltiazem and heparin infusions * Patient continues to be hyperglycemic today. His fasting BSG was elevated (211 mg/dL). I attributed this to basal deficiency since basal insulin was significantly delayed yesterday, however lunch BSG was even further elevated at 307 mg/dL. * Will add a Lantus dose per scale at HS * Will tighten Novolog parameters * One time dose of regular insulin 8 units IV given with lunch coverage PLAN FOR INPATIENT GLYCEMIC CONTROL: * Holding outpatient oral diabetes medications * Basal insulin - * Lantus 45 units SC daily * Bolus insulin * NovoLog per scale ACHS or Q6hrs while NPO * Goal Range: Low 110 mg/dL - High 150 mg/dL * Correction Factor: 12 mg/dL/unit with breakfast; 15 mg/dL/unit with with lunch, dinner, bedtime * Nutritional / Prandial insulin per carb ratio of 1 unit per 4.5 grams CHO consumed with breakfast; 1 units per 6 grams CHO consumed with lunch and dinner * Please note that the plan above was derived based on current level of insulin resistance and hospital stress. These recommendations are appropriate for inpatient admission only. Plan of care upon discharge will need to be reassessed to avoid potential outpatient hypo/hyperglycemia. Thank you.
--- NOTE | 2020-03-05 17:25 | Electrocardiogram Report ---
Test Reason : Blood Pressure : / mmHG Vent. Rate : 084 BPM Atrial Rate : 000 BPM P-R Int : 000 ms QRS Dur : 078 ms QT Int : 384 ms P-R-T Axes : 000 100 095 degrees QTc Int : 453 ms Atrial fibrillation with a competing junctional pacemaker Rightward axis Nonspecific ST abnormality Abnormal ECG When compared with ECG of 04-MAR-2020 06:49, QT has shortened Confirmed by Renzo Song ([id number]) on 03/05/2020 5:25:27 PM Referred By: Nissa Reed Confirmed By:Agapito Song
--- NOTE | 2020-03-06 10:34 | Discharge Summary ---
Date of Service March 06, 2020 Admission HPI Per Admitting Provider This is a 49 y/o male with a history of DM2, chronic PE/DVT on anticogulation, PAF, obesity, and non-compliance who presents to the ED from his PCP office where he was seen for acute LLE edema but was found to be in atrial fibrillation with rapid ventricular response. Pt reports that he noticed swelling in the LLE on Wednesday (4 days ago) but it has been relatively stable since then. He noted some associated discomfort but denies significant LLE pain. He denies prior diagnosis of DVT in the LLE stating that they have always noted clot only in the RLE but review of the chart shows diagnosis of acute DVT in the LLE in 2018. When he was evaluated in the office, he was noted to be tachycardic from the 130s-150s with an irregular rhythm so EKG completed and showed atrial fibrillation with RVR so pt referred to the ED. Pt reports feeling essentially fine other than the LLE swelling and discomfort. He denies chest pain, palpitations, racing heart, HOGAN, dizziness, dyspnea, cough, fevers, chills, congestion, N/V/D. Admission Exam Per Admitting Provider Constitutional: WD/WN, vitals as above + obese; no acute distress Eyes: + anicteric sclerae Neck: trachea midline Respiratory: normal respiratory effort, lungs clear to auscultation Auscultation: no rales, no rhonchi and no wheezes Cardiovascular: Rate/Rhythm: + tachycardic and + irregularly irregular Heart Sounds: no gallop and no cardiac rub Extremities: + edema (bilateral LE edema to knees - left slightly worse than right) Gastrointestinal (Abdomen): Inspection/Auscultation: normal bowel sounds Percussion/Palpation: abdomen soft; abdomen nontender Musculoskeletal: Head/Neck/Chest: normocephalic and head atraumatic Skin: Chronic skin changes bilateral LE but no significant warmth or drainage noted Neurologic: moves all extremities; no focal motor deficits Speech / Cognition: normal speech Psychiatric: A+Ox3, euthymic affect Principal Diagnosis Atrial fibrillation with RVR, bilateral leg edema, history of pulmonary embolism and DVT, hypertension Discharge Exam Constitutional well developed, well nourished and + obese; no acute distress and not ill appearing Eyes PERRL, conjunctivae normal, anicteric sclerae ENMT external ear and nose normal, oropharynx normal Neck trachea midline, no thyromegaly Respiratory normal respiratory effort; no respiratory distress Auscultation: lungs clear to auscultation bilaterally Cardiovascular Rate/Rhythm: + abnormal rate and + abnormal rhythm Heart Sounds: no murmur Extremities: + edema (Bilateral lower extremity edema, left more than the right with chronic skin changes) Gastrointestinal (Abdomen) Inspection/Auscultation: abdomen normal to inspection and normal bowel sounds; abdomen not distended Percussion/Palpation: abdomen soft Neurologic moves all extremities; no focal motor deficits Psychiatric A+Ox3, euthymic affect Lymphatic no cervical or axillary lymphadenopathy Discharge Data Allergies Allergy/AdvReac Type Severity Reaction Status Date / Time Penicillins Allergy Intermediate Hives Verified 03/01/20 17:03 Consultations 03/01/20 16:24 ED Decision to Admit Stat 03/01/20 18:13 Consult Cardiology Routine Ordered Studies 03/01/20 14:13 CT angio chest PE protocol Stat US venous doppler LE LT Stat Diabetes Follow up Diabetes Follow-up Needed for HgbA1c >9% Hospital Course (1) Atrial fibrillation with RVR: - Started on diltiazem gtt in the ED - Increase outpatient beta miguel from Lopressor 25 mg BID to TID - Starting heparin gtt with no bolus - Consult cardiology-appreciate input and recommendation -Remains on Cardizem drip and -Beta-miguel has been increased to Lopressor 25 mg 4 times daily -Remains free of any cardiac symptoms and the heart rate is improving -Heart rate remains elevated. -Cardizem has been discontinued and sotalol added -We will continue current medications -Heart rate seems to be controlled with sotalol the dose of which has been increased with decreasing dose of Lopressor -Heart rate is controlled with increasing dose of sotalol -Denies any other acute symptoms and the patient will be discharged home this afternoon Bilateral leg edema Received 1 dose of Lasix yesterday Seems to be improving Will try a day or 2 more of intravenous Lasix and see if that helps Advised to elevate legs while in bed and ambulate whenever possible (2) Hyperglycemia due to type 2 diabetes mellitus: Sugar upon arrive was >500 but pt apparently ate cheeseburger just prior to arrival. States that he only checks his sugars occasionally at home but when he does they are "high" - Consult pharmacy for glycemic management - Holding outpatient Metformin and Trulicity -Globin A1c is very high at 13.6 - Diabetic diet (3) Hypomagnesemia: Repleted IV by ED (4) Pulmonary embolus: Chronic clot burden that may in part be related to non-compliance with anticoagulation vs ineffectiveness of the Eliquis due to obesity - Staring heparin gtt and holding Eliquis for now. -CTA did not show chronic pulmonary embolism -Continue intravenous heparin for now and seems to be Eliquis will be the best choice for him for long-term anticoagulation because of noncompliance -Eliquis has been restarted -2 steps O2 saturation test-negative. Does not require any oxygen (5) Deep vein thrombosis: Clot in LLE appears to be chronic and imaging from 2018 showed acute clot. Unclear if this is the etiology of the increased swelling - will continue to monitor. - Check procalcitonin although pt denies fevers, chills, sweats, purulent drainage/wounds on LE - ultrasound did show chronic DVTs (6) Hypertension: Increasing beta-miguel for afib with RVR and pt on diltiazem drip - continue to monitor Blood pressure is controlled (7) Abnormal thyroid function test: TSH is minimally high with normal T3 and T4 Nothing significant does not need any medicine for (8) Noncompliance: Likely contributing to multiple medical issues. Continue to emphasize the importance of taking medications as prescribed throughout this admission. Total Time Total Time Spent Total Time Spent (In Minutes): 40 minutes Total Time Includes: Examination of the Patient, Discharge Planning, Medication Reconciliation and Communication With Other Providers Discharge Plan Discharge Items Patient Disposition: Home - Self-Care Reason For Visit: ATRIAL FIBRILLATION WITH RVR Discharge Diagnosis: Atrial fibrillation with RVR, bilateral leg edema, history of pulmonary embolism and DVT, hypertension Condition on Discharge: Fair Activity: Resume your previous activity Non-emergency contact: Primary Care Provider Call non-emergency contact if: you have any medication questions and your symptoms worsen Follow-up/Referrals: Jay Hutchison MD [Primary Care Provider] - 03/11/20 2:00 pm (Date & Time 03/11/2020 2:00 PM Provider Jay Hutchison III, MD Department [facility] ) Diet: Carb Consistent or DM2 and Heart Healthy Addtl Attending Provider Instructions: Please take precaution to avoid fall. Take your medications as advised Try to keep your legs elevated while sleeping Pending Studies at Discharge: No Stand-Alone Forms: My [facility], Work/School Release (Inpt), Smoking Cessation Medications and DC Order Prescriptions: New sotalol 80 mg Tablet 80 mg PO BID 30 Days Qty: 60 RF: 0 Continued insulin lispro [Humalog KwikPen Insulin] 100 unit/mL insulin pen See Rx Instructions .ROUTE .COMPLEX RF: 0 Eliquis 5 mg tablet 5 mg PO BID RF: 0 Trulicity 0.75 mg/0.5 mL Pen Injector 0.75 mg SUBCUT WK RF: 0 metformin 1,000 mg tablet 1,000 mg PO QPM RF: 0 metoprolol tartrate 25 mg tablet 25 mg PO BID RF: 0 Lantus Solostar U-100 Insulin 100 unit/mL (3 mL) insulin pen 30 unit SUBCUT QAM RF: 0 Discharge Orders: Discharge Order (Routine); Ordered 03/05/20 Ordered By: Pedro Pablo Deluna/Other Patient Handouts: High Blood Sugar (Hyperglycemia), Hypoglycemia (Low Blood Sugar), Managing Type 2 Diabetes, Diabetes: Meal Planning Admission Data Admit Date/Time: 03/01/20 17:11 Attending Provider: Pedro Pablo Schmitz Admit Provider: Hansel Boyce Primary Care Provider: Jay Hutchison Other Providers: Hansel Boyce ; David Benitez Other Interventions: Discharge Summary Assessment (RN) Last Done: 03/05/20 13:36
== END 2020-03-05 14:17 | disposition home or self-care (01) | DRG 309 ==
LOC: ED 13:15 → SUATTDRO 17:11 → 2E 17:11

== ENCOUNTER 2023-01-28 19:16 | Inpatient (IN) ==
[2023-01-28] MEDS ORDERED: ALBUT/IPRATROP 3MG/0.5MG NEB 3 ML VIAL ONE (19:43)
[2023-01-28] MEDS ORDERED: ALBUT/IPRATROP 3MG/0.5MG NEB 3 ML VIAL NEB STA (19:43)
[2023-01-28] MEDS ORDERED: methylPREDNISolone 125 MG/2 ML VIAL IV STA (19:48)
[2023-01-28] MEDS ORDERED: ALBUT/IPRATROP 3MG/0.5MG NEB 3 ML VIAL NEB ONE (19:48)
[2023-01-28 20:09] LABS: Basophils # (auto) 0.04 K/uL (0.00-0.20); Basophils % (auto) 0.3 %; Eosinophils # (auto) 0.07 K/uL (0.00-0.50); Eosinophils % (auto) 0.5 %; Hematocrit (blood only) 44.8 % (42.0-52.0); Immature Granulocytes # (auto) 0.05 K/uL (0.01-0.20); Immature Granulocytes % (auto) 0.4 %; Lymphocytes # (auto) 0.83 K/uL (1.20-3.40); Lymphocytes % (auto) 6.3 %; Mean Corpuscular Hemoglobin 31.2 pg (25.0-34.0); Mean Corpuscular Hgb Conc 33.5 g/dL (32.0-36.0); Mean Corpuscular Volume 93.1 fL (80.0-100.0); Mean Platelet Volume 11.9 fL (9.4-12.4); Monocytes # (auto) 0.85 K/uL (0.11-0.59); Monocytes % (auto) 6.4 %; Neutrophils # (auto) 11.42 K/uL (1.40-6.50); Neutrophils % (auto) 86.1 %; Platelet Count 184 K/uL (130-400); RDW Standard Deviation 47.8 fL (36.4-46.3); Red Blood Count 4.81 M/uL (4.70-6.10); White Blood Count 13.26 K/ul (4.8-10.8)
[2023-01-28 20:12] LABS: Base Excess VBG 2.1 mEq/L; HCO3 VBG 29 mmol/L; Oxygen Saturation VBG 84.8 %; PCO2 VBG 52 mmHg (38-50); PO2 VBG 53 mmHg; pH VBG 7.35 (7.36-7.41)
[2023-01-28 20:31] LABS: Calcium 9.5 mg/dl (8.6-10.3); Creatinine Clr Calc Pharmacy 147.8 ml/min; Potassium 3.9 mmol/L (3.5-5.1)
[2023-01-28 20:38] LABS: Troponin I High Sensitivity 8.6 pg/ml (0-20)
[2023-01-28 20:39] LABS: Partial Thromboplastin Ratio 1.2; Partial Thromboplastin Time 34.2 Seconds (21.0-31.0); Prothrombin Time 11.3 Seconds (9.0-12.0)
[2023-01-28 20:59] LABS: Influenza A virus by PCR Negative (Neg); Influenza B virus by PCR Negative (Neg); RSV by PCR Negative (Neg); SARS CoV2 RNA(COVID-19) Ceph NEGATIVE (Negative)
--- NOTE | 2023-01-28 22:10 | XRay Report ---
SINGLE VIEW CHEST CLINICAL HISTORY: Atypical chest pain FINDINGS: 2 AP, portable, upright chest radiographs are compared to chest x-ray and chest CT dated . The heart is enlarged noting atherosclerotic calcification of the thoracic aorta. Emphysema and chronic interstitial thickening is similar to previous. Foci of parenchymal scarring are seen thr oughout both lungs. There is pulmonary vascular congestion. Bilateral airspace opacities are noted, g reatest at the lung bases. There is a small right pleural effusion. No pneumothorax is seen. The skel etal structures are osteopenic. The bony thorax is grossly intact. IMPRESSION: 1. Cardiomegaly and emphysema with evidence of congestive failure. 2. Bilateral airspace opacities likely represent mild pulmonary edema. Correlate clinically for evide nce of a superimposed infectious/inflammatory pneumonitis. Radiographic follow-up to resolution is re commended. 3. Right pleural effusion. ACT 112: Negative or not required by law. Electronically signed by: Clifton Hopkins M.D. 01/28/2023 10:09 PM
[2023-01-28] MEDS ORDERED: AZITHROMYCIN 250 MG TAB PO ONE (22:25)
[2023-01-28] MEDS ORDERED: FUROSEMIDE 40 MG/4 ML VIAL IV ONE (22:25)
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
[2023-01-29] MEDS ORDERED: POLYETHYLENE (MIRALAX) 17 GM PACK PO PRN (01:31)
[2023-01-29] MEDS ORDERED: DEXTROSE 50% 50 ML SYRINGE IV PRN (01:31)
[2023-01-29] MEDS ORDERED: NITROGLYCERIN SL 0.4 MG/TAB TAB SL PRN (01:31)
[2023-01-29] MEDS ORDERED: GLUCOSE 40% GEL 15 GM TUBE PO PRN (01:31)
[2023-01-29] MEDS ORDERED: GLUCOSE 10 TAB/TUBE PO PRN (01:31)
[2023-01-29] MEDS ORDERED: ACETAMINOPHEN 325 MG TAB PO PRN (01:31)
[2023-01-29] MEDS ORDERED: CARBOHYDRATES FOR HYPOGLYCEMIA PO PRN (01:31)
[2023-01-29] MEDS ORDERED: GLUCAGON FOR INJ 1 MG VIAL SQ PRN (01:31)
[2023-01-29] MEDS ORDERED: cefTRIAXone SODIUM 2,000 MG in DEXTROSE 5% 50 ML IV SCH (02:00)
[2023-01-29] MEDS: INSULIN ASPART PER UNIT CHARGE SC SCH ×6 (02:37→20:47)
[2023-01-29] MEDS ORDERED: LANTUS PER UNIT CHARGE SQ STA (04:02)
[2023-01-29 05:20] LABS: Basophils # (auto) 0.01 K/uL (0.00-0.20); Basophils % (auto) 0.1 %; Hematocrit (blood only) 39.1 % (42.0-52.0); Hemoglobin 13.2 g/dl (14.0-18.0); Immature Granulocytes # (auto) 0.02 K/uL (0.01-0.20); Immature Granulocytes % (auto) 0.3 %; Lymphocytes # (auto) 0.49 K/uL (1.20-3.40); Lymphocytes % (auto) 6.6 %; Mean Corpuscular Hgb Conc 33.8 g/dL (32.0-36.0); Mean Corpuscular Volume 91.8 fL (80.0-100.0); Monocytes # (auto) 0.23 K/uL (0.11-0.59); Monocytes % (auto) 3.1 %; Neutrophils # (auto) 6.69 K/uL (1.40-6.50); Neutrophils % (auto) 89.9 %; Platelet Count 151 K/uL (130-400); RDW Coefficient of Variation 13.8 % (11.5-14.5); RDW Standard Deviation 46.7 fL (36.4-46.3); Red Blood Count 4.26 M/uL (4.70-6.10); White Blood Count 7.44 K/ul (4.8-10.8)
[2023-01-29 05:42] LABS: BUN Creatinine Ratio 31.7 (10-20); Calcium 8.8 mg/dl (8.6-10.3); Creatinine Clr Calc Pharmacy 172.4 ml/min; Est GFR (African American) 132.1 ml/min; Magnesium 1.9 mg/dl (1.7-2.4); Potassium 3.4 mmol/L (3.5-5.1); Troponin I High Sensitivity 6.7 pg/ml (0-20)
[2023-01-29] MEDS ORDERED: PHARMACY GLYCEMIC MGMT CONSULT PRN (05:51)
[2023-01-29] MEDS ORDERED: methylPREDNISolone 40 MG in SYRINGE 0 ML IV SCH (06:00)
[2023-01-29] MEDS ORDERED: INSULIN HUMAN REGULAR PER UNIT 8 UNITS in SYRINGE 7.92 ML IV STA (06:10)
[2023-01-29] MEDS: LEVALBUTEROL 1.25 MG/3 ML NEB NEB SCH ×2 (07:19→14:49)
[2023-01-29 07:43] LABS: Estimated Average Glucose 223 mg/dl; Hemoglobin A1C 9.4 % (4.5-5.6)
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
[2023-01-29] MEDS ORDERED: METOPROLOL TARTRATE 25 MG TAB PO SCH (09:00)
[2023-01-29] MEDS ORDERED: LANTUS PER UNIT CHARGE SQ SCH ×3 (09:00→21:00)
[2023-01-29] MEDS: APIXABAN 5 MG TABLET PO SCH ×2 (09:05→20:39)
[2023-01-29] MEDS: SOTALOL HCL 80 MG TAB PO SCH ×2 (09:06→20:40)
[2023-01-29] MEDS: VALSARTAN/SACUBITRIL 51/49 MG TAB PO SCH ×2 (09:06→20:40)
[2023-01-29] MEDS: DOXYCYCLINE HYCLATE 100 MG CAP PO SCH ×2 (09:06→20:40)
[2023-01-29] MEDS: FUROSEMIDE 40 MG/4 ML VIAL IV SCH ×2 (09:06→17:05)
[2023-01-29] MEDS: ATORVASTATIN 40 MG TAB PO SCH (09:06)
--- NOTE | 2023-01-29 10:20 | Pharmacy Report ---
Pharmacy Glycemic Short Note 2 - Date of Service January 29, 2023 - Glycemic Short BSG Results (Last 24 hours): 01/28/23 01/29/23 01/29/23 19:41 02:15 02:17 Glucose 269 H POC Glucose 372 H* 386 H* 01/29/23 01/29/23 01/29/23 03:19 03:57 04:44 Glucose 329 H* POC Glucose 350 H* 330 H* 01/29/23 01/29/23 06:15 08:20 Glucose POC Glucose 282 H 233 H OUTPATIENT ANTIDIABETIC REGIMEN: * Lantus 30 units Q AM * Farxiga 10mg PO Q AM * Metformin 1000mg PO BID * A1c = 9.4% 01/29/23 ASSESSMENT: * Poorly controlled type 2 diabetic admitted for hypoxia, possibly secondary to COPD exac / ADHF / pneumonia * Received high dose steroid in ED and current orders for Solu-Medrol 40mg IV Q 8 hrs * Insulin requirements likely to be high given steroid and other acute stressors. Will initiate basal/bolus SQ regimen based upon "severe" stress and weight PLAN FOR INPATIENT GLYCEMIC CONTROL: * Hold outpatient oral diabetes medications * Basal insulin * Lantus 30 units SQ x 1 this AM (already given) then BID per scale: BSG less than 110 5 units, 110-180 18 units, greater than 180 25 units * Bolus insulin * NovoLog per scale ACHS and at 0200 tonight * Goal Range: Low 120 mg/dL - High 150 mg/dL * Correction Factor: 18 mg/dL/unit * Nutritional / Prandial insulin per carb ratio of 1 unit per 6 grams CHO consumed
--- NOTE | 2023-01-29 12:40 | Communication Note ---
Date of Service: January 29, 2023 Post Rounds Update: Mr Brunson is a 52-year-old gentleman with past med significant for type 2 diabetes hyperlipidemia, pulmonary embolism and DVT history of chronic systolic heart failure, hypertension, paroxysmal atrial fibrillation, s/p pulmonary vein isolation procedure and caval tricuspid isthmus ablation on on 07/2021. S/p PVI radiofrequency catheter ablation on 09/2021 at [facility], history of parotid mass, obesity, known medication noncompliance currently patient living at [place], [place] visiting sister in [place], who was admitted overnight for acute hypoxic respiratory failure with possible component of COPD exacerbation v new heart failure. Patient states that he has been out of medication for over a month as his "doctor quit" and there were continued issue with getting his medications. He denies any known history of COPD, but endorses daily smoking up to 1ppd. On exam, patient was mildly hypertensive in the 140s, saturating in high 90s on 8L NRB, HR in 70s. Labs with A1C 9.4%, POC glucose down from 329 to 233. K 3.4 and replaced. Since administration of IV lasix, patient roughly 1.6L negative. Patient appears comfortable laying relatively flat, CV RRR without murmur, lungs with occasional crackles and decreased bibasilar breath sounds. Legs with minimal edema. #Acute hypoxic respiratory failure, possibly multifactorial #Nonischemic Cardiomyopathy #Emphysema on imaging, likely COPD exacerbation -No clear dysfunction on ECHO, however, CXR with pulm edema and improved with diuersis -s/p hour-long nebs and p.o. azithromycin and IV Lasix and IV Solu-Medrol in the ER -Reduce freuqency of nebs to PRN -Continue with IV Lasix 40 mg BID today, plans to discontinue and reassess in am -Cardiology on consult: less suspicious for HF exacerbation Monitor on telemetry floor #Emphysema on imaging, ?COPD exacerbation #Tobacco Use No known history of COPD, nor formal PFTs performed -Patient reports questionable improvement with nebs -Daily 1ppd smoker, reports quit "yesterday" because of his breathing -Adjust neb treatments to prn -Transition to PO prednisone for total 3 days -Continue doxycycline 100mg bid for x 5 day -Counselled on cessation and options to assist, patient declined at this time #Prior DVT and pulmonary embolism -On Eliquis #Paroxysmal atrial fibrillation s/p ablation Patient states he had cardioversion yesterday -Continue sotalol 80mg BID -Transitioned Metoprolol Tartrate to Succinate -Continue Eliquis #Uncontrolled DMII A1C 9.4%, reports being out of home regimen for ~1 month, notably insulin prior to running out may have been an "old prescription" Home regimen reportedly upwards to 40 U BID [facility] for [facility]cemic mgmt #Hyperlipidemia on statin DVT prophylaxis on Eliquis Disposition telemetry floor Full code
[2023-01-29] MEDS ORDERED: LEVALBUTEROL 1.25 MG/3 ML NEB NEB PRN (14:29)
[2023-01-29] MEDS: METOPROLOL SUCC 25MG EXT REL TAB PO SCH (20:40)
[2023-01-30] MEDS ORDERED: INSULIN ASPART PER UNIT CHARGE SC ONE (02:00)
[2023-01-30] MEDS ORDERED: LANTUS PER UNIT CHARGE SQ SCH ×2 (09:00→21:00)
[2023-01-30 09:11] LABS: Hematocrit (blood only) 41.1 % (42.0-52.0); Hemoglobin 13.8 g/dl (14.0-18.0); Mean Corpuscular Hemoglobin 31.4 pg (25.0-34.0); Mean Corpuscular Hgb Conc 33.6 g/dL (32.0-36.0); Mean Corpuscular Volume 93.4 fL (80.0-100.0); Mean Platelet Volume 11.9 fL (9.4-12.4); Platelet Count 184 K/uL (130-400); RDW Coefficient of Variation 14.5 % (11.5-14.5); RDW Standard Deviation 49.4 fL (36.4-46.3); White Blood Count 10.53 K/ul (4.8-10.8)
[2023-01-30] MEDS: METOPROLOL SUCC 25MG EXT REL TAB PO SCH ×2 (09:28→20:06)
[2023-01-30] MEDS: SOTALOL HCL 80 MG TAB PO SCH ×2 (09:28→20:06)
[2023-01-30] MEDS: predniSONE 20 MG TAB PO SCH (09:28)
[2023-01-30] MEDS: FLUTICASONE/VILANTEROL 100/25MCG 14 PUFFS/INHALER INH SCH (09:28)
[2023-01-30] MEDS: APIXABAN 5 MG TABLET PO SCH ×2 (09:28→20:06)
[2023-01-30] MEDS: VALSARTAN/SACUBITRIL 51/49 MG TAB PO SCH (09:28)
[2023-01-30] MEDS: DOXYCYCLINE HYCLATE 100 MG CAP PO SCH ×2 (09:28→20:38)
[2023-01-30] MEDS: ATORVASTATIN 40 MG TAB PO SCH (09:28)
[2023-01-30] MEDS: INSULIN ASPART PER UNIT CHARGE SC SCH ×4 (09:34→20:36)
[2023-01-30 09:59] LABS: Calcium 8.6 mg/dl (8.6-10.3); Magnesium 1.9 mg/dl (1.7-2.4); Potassium 3.3 mmol/L (3.5-5.1)
[2023-01-30 10:05] LABS: BUN Creatinine Ratio 36.4 (10-20); Creatinine Clr Calc Pharmacy 155.1 ml/min; Est GFR (Non-African American) 109.6 ml/min; Phosphorus 3.2 mg/dl (2.5-4.9)
--- NOTE | 2023-01-30 13:10 | Pharmacy Report ---
Pharmacy Glycemic Short Note 2 - Date of Service January 30, 2023 - Glycemic Short BSG Results (Last 24 hours): 01/29/23 01/29/23 01/30/23 16:26 20:25 02:08 Glucose POC Glucose 236 H 149 H 205 H 01/30/23 01/30/23 01/30/23 07:23 08:19 11:10 Glucose 277 H POC Glucose 181 H 283 H OUTPATIENT ANTIDIABETIC REGIMEN: * Lantus 30 units Q AM * Farxiga 10mg PO Q AM * Metformin 1000mg PO BID * A1c = 9.4% 01/29/23 ASSESSMENT: 01/30/23: * BSGs trended down throughout the day yesterday * Fasting BSG elevated this morning at 181 mg/dL * Steroids changed to prednisone 40 mg PO daily * Will front-load basal this morning (consider NPH tomorrow) 01/29/23: * Poorly controlled type 2 diabetic admitted for hypoxia, possibly secondary to COPD exac / ADHF / pneumonia * Received high dose steroid in ED and current orders for Solu-Medrol 40mg IV Q 8 hrs * Insulin requirements likely to be high given steroid and other acute stressors. Will initiate basal/bolus SQ regimen based upon "severe" stress and weight PLAN FOR INPATIENT GLYCEMIC CONTROL: * Hold outpatient oral diabetes medications * Basal insulin * Lantus 40 units SC daily with prednisone * Bolus insulin * NovoLog per scale ACHS and at 0200 tonight * Goal Range: Low 110 mg/dL - High 140 mg/dL * Correction Factor: 15 mg/dL/unit * Nutritional / Prandial insulin per carb ratio of 1 unit per 4 grams CHO consumed
[2023-01-30] MEDS ORDERED: POTASSIUM CHLORIDE CRTAB 20 MEQ TABCR PO STA (16:40)
--- NOTE | 2023-01-30 16:47 | Hospitalist Progress Note ---
Date of Service January 30, 2023 Assessment & Plan (1) Acute respiratory failure with hypoxia: (2) Pneumonitis: (3) COPD exacerbation: (4) Paroxysmal atrial fibrillation: (5) History of pulmonary embolism: (6) Hypertension: (7) Type 2 diabetes mellitus: Plan Mr Brunson is a 52-year-old gentleman with past med significant for type 2 diabetes hyperlipidemia, pulmonary embolism and DVT history of chronic systolic heart failure, hypertension, paroxysmal atrial fibrillation, s/p pulmonary vein isolation procedure and caval tricuspid isthmus ablation on on 07/2021. S/p PVI radiofrequency catheter ablation on 09/2021 at [facility], history of parotid mass, obesity, known medication noncompliance currently patient living at [place], [place] visiting sister in [place], who was admitted overnight for acute hypoxic respiratory failure with possible component of COPD exacerbation v new heart failure. Patient appears well overall from general appearance, but remains on 6L saturating in mid-90s. Evaluation of CT notes LAD linear scarring, consolidations with appearance c/f inflammatory v infectious pneumonitis Plan for pulm consult #Acute hypoxic respiratory failure, possibly multifactorial #Nonischemic Cardiomyopathy #Emphysema on imaging, likely COPD exacerbation -No clear dysfunction on ECHO, however, CXR with pulm edema and improved with diuersis -s/p hour-long nebs and p.o. azithromycin and IV Lasix and IV Solu-Medrol in the ER -Reduce freuqency of nebs to PRN -Continue with IV Lasix 40 mg BID today, plans to discontinue and reassess in am -Cardiology on consult: less suspicious for HF exacerbation -Monitor on telemetry floor #Patchy airway consolidations, infectious v inflammatory pneumonitis #Emphysema on imaging, ?COPD exacerbation #Tobacco Use No known history of COPD, nor formal PFTs performed; CT image with LAD and signs of pneumonitis, reactive? -Patient reports questionable improvement with nebs -Daily 1ppd smoker, reports quit "yesterday" because of his breathing -Adjust neb treatments to prn -Transition to PO prednisone for total 3 days -Continue doxycycline 100mg bid for x 5 day -Counselled on cessation and options to assist, patient declined at this time -Consult Pulmonary in am #Prior Cavitary lesion of lung, right apex CXR:Nonspecific possibly cavitary right apical lesion containing a central nodule. Clinical and imaging follow-up is recommended. --CT Chest: Acute pulmonary embolus in the distal right main pulmonary artery extending into lobar branches of the right lung. 6.1 cm cavitary lesion at the right apex with surrounding nodular consolidation. An infectious etiology is favored though cavitary metastatic lesion cannot be excluded. Subcentimeter right supraclavicular and mediastinal lymph nodes, nonspecific. Trace right pleural effusion and small volume upper abdominal ascites. Nasogastric tube appropriately positioned.. Dependent consolidation in the lung bases right greater than left, possibly extensive atelectasis or scarring. Sputum for AFB: Negative, Quant Gold negative; completed 4-6 weeks of levaquin + flagyl 2018 Biopsy with noted iron staining correlation hemorrhage on read ?vasculitis -Order ANCA, pANCA, PR3 vasculitis work up #Prior DVT and pulmonary emboli Chronic thrombus seen on imaging -Continue Eliquis #Hypertension Reduced home entresto dose 2/2 hypotension #Paroxysmal atrial fibrillation s/p ablation Patient states he had cardioversion yesterday -Continue sotalol 80mg BID -Transitioned Metoprolol Tartrate to Succinate -Continue Eliquis #Uncontrolled DMII A1C 9.4%, reports being out of home regimen for ~1 month, notably insulin prior to running out may have been an "old prescription" [facility] regimen [facility] #Hyperlipidemia on statin #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 He does not appear in distress He endorses subjective improvement and denies any acute concerns at this time He doesn't necessarily feel wheezing or the needs to use the inhaler He denies chest pain, fever like symptoms, or any other acute concerns Review of Systems Review of Systems: All systems reviewed & are unremarkable except as noted in Subjective Physical Exam Constitutional: WD/WN, vitals as above Eyes: PERRL, conjunctivae normal, anicteric sclerae ENMT: external ear and nose normal, oropharynx normal Neck: trachea midline, no thyromegaly Respiratory: decreased bibasilar, seemingly good movement through out field, occasional crackles? Cardiovascular: RRR, no murmur, no edema Gastrointestinal (Abdomen): normal bowel sounds, soft, nontender, no hepatosplenomegaly Musculoskeletal: no cyanosis or clubbing, extremities motor strength 5/5 Skin: no rashes, warm and dry Neurologic: PERRL, EOMI, accommodation nl, no face palsy, no dysarthria Results & Data Results & Data Vital Signs (Past 12 Hours) Vital Signs Temp Pulse Pulse Resp BP Pulse Ox O2 Del Method 01/30/23 15:45 59 L 01/30/23 11:54 36.7 C 60 18 97/63 L 94 Oxymask 01/30/23 08:30 Oxymask 01/30/23 08:09 36.7 C 64 20 118/74 95 Oxymask 01/30/23 07:33 59 L O2 Flow Rate 01/30/23 15:45 01/30/23 11:54 6 01/30/23 08:30 6 01/30/23 08:09 6 01/30/23 07:33 Laboratory Results Short CBC 01/30/23 Range/Units 08:19 WBC 10.53 (4.8-10.8) K/ul Hgb 13.8 L (14.0-18.0) g/dl Hct 41.1 L (42.0-52.0) % Plt Count 184 (130-400) K/uL BMP 01/30/23 08:19 Sodium 138 Potassium 3.3 L Chloride 97 L Carbon Dioxide 35 H BUN 24 H Creatinine 0.66 Glucose 277 H Calcium 8.6 Diagnostic Findings No new data to review Medications Administered Home Medications Medication Instructions Recorded Confirmed Last Taken insulin glargine 100 unit/mL (3 30 unit subcut QA 05/02/19 01/28/23 01/28/23 mL) subcutaneous pen (Lantus Solostar U-100 Insulin) apixaban 5 mg tablet (Eliquis) 5 mg PO BID 08/01/19 01/28/23 01/28/23 metformin 1,000 mg tablet 1,000 mg PO AMPM 03/01/20 01/28/23 01/28/23 metoprolol tartrate 25 mg tablet 25 mg PO BID 03/01/20 01/28/23 01/28/23 albuterol 90 mcg/actuation aerosol 180 mcg inhalation QID 05/08/20 05/08/20 Unknown inhaler atorvastatin 40 mg tablet 40 mg PO QAM 05/08/20 01/28/23 01/28/23 ondansetron 4 mg disintegrating 4 mg PO Q8H PRN Nausea 05/08/20 01/28/23 Unknown tablet sotalol 80 mg tablet 80 mg BID 05/08/20 01/28/23 01/28/23 dapagliflozin propanediol 10 mg 10 mg PO QAM 01/28/23 01/28/23 01/20/23 tablet (Farxiga) sacubitril 49 mg-valsartan 51 mg 1 tab PO BID 01/28/23 01/28/23 Unknown tablet (Entresto) Active Medications Generic Name Dose Route Start Last Admin Trade Name Freq PRN Reason Stop Dose Admin Apixaban 5 mg 01/29/23 09:00 01/30/23 09:28 Apixaban 5 Mg Tablet PO 02/28/23 08:59 5 mg BID NENA Administration Atorvastatin Calcium 40 mg 01/29/23 09:00 01/30/23 09:28 Atorvastatin 40 Mg Tab PO 02/28/23 08:59 40 mg QAM NENA Administration Doxycycline Hyclate 100 mg 01/29/23 09:00 01/30/23 09:28 Doxycycline Hyclate 100 Mg Cap PO 02/05/23 08:59 100 mg BID NENA Administration Fluticasone/Vilanterol 1 puffs 01/30/23 09:00 01/30/23 09:28 Fluticasone/Vilanterol 100/25mcg 14 Puffs/Inhaler INH 03/01/23 08:59 1 puffs DAILY NENA Administration Furosemide 40 mg 01/29/23 09:00 01/29/23 17:05 Furosemide 40 Mg/4 Ml Vial IV 02/28/23 08:59 40 mg BID17 NENA Administration Insulin Aspart 0 units 01/29/23 02:15 01/30/23 12:21 Insulin Aspart Per Unit Charge SC 02/28/23 02:14 22 units ACHS NENA Administration Insulin Glargine 40 units 01/30/23 09:00 01/30/23 09:34 Lantus Per Unit Charge SQ 02/28/23 20:59 40 units DAILY NENA Administration Levalbuterol HCl 1.25 mg 01/29/23 14:29 01/29/23 14:52 Levalbuterol 1.25 Mg/3 Ml Neb NEB 02/28/23 06:59 1.25 mg QIDR PRN Administration wheezing Protocol Metoprolol Succinate 25 mg 01/29/23 21:00 01/30/23 09:28 Metoprolol Succ 25mg Ext Rel Tab PO 02/28/23 20:59 25 mg BID NENA Administration Prednisone 40 mg 01/30/23 09:00 01/30/23 09:28 Prednisone 20 Mg Tab PO 02/01/23 08:59 40 mg DAILY NENA Administration Sotalol HCl 80 mg 01/29/23 09:00 01/30/23 09:28 Sotalol Hcl 80 Mg Tab PO 02/28/23 08:59 80 mg BID NENA Administration (6) Hypertension Hypertension type: essential hypertension Qualified Code(s): I10 - Essential (primary) hypertension (7) Type 2 diabetes mellitus Diabetes mellitus senior living insulin use: without senior living use Diabetes mellitus complication status: without complication Qualified Code(s): E11.9 - Type 2 diabetes mellitus without complications
--- NOTE | 2023-01-30 17:21 | Cardiology Progress Note ---
Date of Service January 30, 2023 Assessment & Plan (1) Hypoxia: (2) COPD exacerbation: (3) Paroxysmal atrial fibrillation: (4) Nonischemic dilated cardiomyopathy: Plan IMPRESSION: 52 year old male with history of NICM/possible tachycardic induced CM, Paroxysmal atrial fibrillation (on sotalol+metoprolol), and COPD. Presents with worsening shortness of breath and Hypoxia requiring supplemental o2 therapy. Patient not presenting significantly volume overloaded on exam. Maintaining NSR on telemetry with controlled rates. Echo with normalized LVEF on preliminary read. PLAN: COPD exacerbation: Hypoxia appears to be most attributed to COPD exacerbation- subjective improvement with Duonebs, abxs, steroids, and o2 therapy. Agree with treatment per primary team. Encouraged smoking cessation NICM-- Patient not examining volume overloaded. Preliminary echo read showing normalized LVEF. IV furosemide on hold for potassium of 3.3 mmol/L. Extra potassium supplementation already ordered by the primary team. Restart GMDT-- Continue Entresto 51-49 mg BID Transition metoprolol tartrate to metoprolol succinate 25 mg BID. (Noted treatment with both sotalol and metoprolol, heart rate stable without significant bradycardia) PAF: Maintaining NSR on telemetry. Continue Eliquis 5 mg BID (also on AC due to history of unprovoked DVT/PE) QTc stable, Continue Sotalol 80 mg BID Metoprolol tartrate dc'd in favor of succinate Wean oxygen as tolerated. DVT prophylaxis: Patient is on Eliquis. Admission and Anticipated Discharge Date Admission Date: January 29, 2023 Subjective Patient seen in cardiology follow-up. He is wearing 6 L oxy mask, but appears very comfortable, pulse oximetry 95%. Physical Exam Constitutional: WD/WN, vitals as above no acute distress Neck: normal visual inspection and trachea midline Respiratory: + cough; no respiratory distress Auscultation: no rales, no rhonchi and no wheezes Cardiovascular: Rate/Rhythm: regular rate and regular rhythm Heart Sounds: normal S1 and normal S2; no murmur Vessels: no JVD Extremities: no edema Gastrointestinal (Abdomen): normal bowel sounds, soft, nontender, no h epatosplenomegaly Skin: no rashes, warm and dry Psychiatric: A+Ox3, euthymic affect Results & Data Vital Signs (Past 12 Hours) Vital Signs Temp Pulse Pulse Resp BP Pulse Ox O2 Del Method 01/30/23 17:13 36.8 C 68 16 102/62 95 Oxymask 01/30/23 15:45 59 L 01/30/23 11:54 36.7 C 60 18 97/63 L 94 Oxymask 01/30/23 08:30 Oxymask 01/30/23 08:09 36.7 C 64 20 118/74 95 Oxymask 01/30/23 07:33 59 L O2 Flow Rate 01/30/23 17:13 6 01/30/23 15:45 01/30/23 11:54 6 01/30/23 08:30 6 01/30/23 08:09 6 01/30/23 07:33 Laboratory Results Telemetry reveals sinus rhythm in the 60s, was down to the 50s overnight. EKG performed 01/28/2023: Normal sinus rhythm at 79 bpm, age-indeterminate septal infarct pattern, grade QT interval 470 ms Echocardiogram 01/29/2023: Mild concentric left ventricular hypertrophy, LVEF 60- 65% Moderate aortic valve sclerosis without stenosis
[2023-01-31 06:52] LABS: Basophils # (auto) 0.02 K/uL (0.00-0.20); Basophils % (auto) 0.2 %; Eosinophils # (auto) 0.11 K/uL (0.00-0.50); Eosinophils % (auto) 1.2 %; Hematocrit (blood only) 41.7 % (42.0-52.0); Hemoglobin 13.6 g/dl (14.0-18.0); Immature Granulocytes # (auto) 0.03 K/uL (0.01-0.20); Immature Granulocytes % (auto) 0.3 %; Lymphocytes # (auto) 2.06 K/uL (1.20-3.40); Lymphocytes % (auto) 22.6 %; Mean Corpuscular Hemoglobin 31.1 pg (25.0-34.0); Mean Corpuscular Hgb Conc 32.6 g/dL (32.0-36.0); Mean Corpuscular Volume 95.4 fL (80.0-100.0); Mean Platelet Volume 11.8 fL (9.4-12.4); Monocytes % (auto) 7.7 %; Neutrophils # (auto) 6.21 K/uL (1.40-6.50); Platelet Count 188 K/uL (130-400); RDW Coefficient of Variation 14.2 % (11.5-14.5); RDW Standard Deviation 50.4 fL (36.4-46.3); Red Blood Count 4.37 M/uL (4.70-6.10); White Blood Count 9.13 K/ul (4.8-10.8)
[2023-01-31 07:50] LABS: BUN Creatinine Ratio 32.8 (10-20); Calcium 8.7 mg/dl (8.6-10.3); Creatinine Clr Calc Pharmacy 152.7 ml/min; Est GFR (African American) 126.3 ml/min; Est GFR (Non-African American) 108.9 ml/min; Magnesium 2.1 mg/dl (1.7-2.4); Potassium 3.3 mmol/L (3.5-5.1)
[2023-01-31] MEDS ORDERED: POTASSIUM CHLORIDE CRTAB 20 MEQ TABCR PO STA (08:36)
[2023-01-31] MEDS ORDERED: LANTUS PER UNIT CHARGE SQ SCH (09:00)
[2023-01-31] MEDS: APIXABAN 5 MG TABLET PO SCH ×2 (09:05→20:38)
[2023-01-31] MEDS: ATORVASTATIN 40 MG TAB PO SCH (09:05)
[2023-01-31] MEDS: FLUTICASONE/VILANTEROL 100/25MCG 14 PUFFS/INHALER INH SCH (09:06)
[2023-01-31] MEDS: METOPROLOL SUCC 25MG EXT REL TAB PO SCH ×2 (09:06→20:39)
[2023-01-31] MEDS: VALSARTAN/SACUBITRIL 26/24MG TAB PO SCH ×2 (09:06→20:39)
[2023-01-31] MEDS: SOTALOL HCL 80 MG TAB PO SCH ×2 (09:06→20:38)
[2023-01-31] MEDS: POTASSIUM CHLORIDE CRTAB 20 MEQ TABCR PO SCH ×2 (09:07→20:38)
[2023-01-31] MEDS: INSULIN ASPART PER UNIT CHARGE SC SCH ×4 (09:15→20:44)
[2023-01-31] MEDS: predniSONE 20 MG TAB PO SCH (10:17)
[2023-01-31] MEDS: DOXYCYCLINE HYCLATE 100 MG CAP PO SCH ×2 (10:17→20:38)
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
[2023-01-31] MEDS ORDERED: IOVERSOL 350 MG 125mL Prefilled Syringe IV ONE (16:15)
--- NOTE | 2023-01-31 16:37 | CT Scan Report ---
CT chest diagnostic wo/w con CT DOSE: 2071.50 mGy.cm CLINICAL HISTORY: hypoxia TECHNIQUE: Multiaxial CT images of the chest were performed both before and after the intravenous adm inistration of contrast. A dose lowering technique was utilized adhering to the principles of ALARA. COMPARISON STUDY: Chest CTA 03/01/2020. FINDINGS: Normal caliber thoracic aorta with no evidence for a dissection. Small linear filling defec t seen within the distal right main pulmonary artery and extending into the right lobar pulmonary art eries consistent with a chronic nonocclusive pulmonary embolus. This remains unchanged. No evidence f or acute pulmonary embolus. The thyroid gland enhances normally. Limited views of the upper abdomen d emonstrate normal liver, spleen, adrenal glands. There is a small right pleural effusion which is dec reased in size. No pericardial effusion. Normal esophagus. No hilar lymphadenopathy. Prominent AP win michael lymph nodes have improved. Therefore, these are likely benign. Moderate coronary artery calcifica tions are noted. No pericardial effusion. The heart is normal in size. No suspicious lytic or blastic osseous lesions. No acute fractures identified. Mild diffuse bronchial wall thickening with mild emp hysema. This is likely chronic. There is a stable linear scarlike density within the right lung apex. There is a 4 cm bleb within the left upper lobe anteriorly. There are few right apical blebs also no salomon. There are patchy peripheral groundglass airspace opacities seen within the right upper lobe and base of the left lower lobe. This likely represents a pneumonia. Consolidation within the base of the right lower lobe may represent compressive atelectasis from the pleural effusion. A few linear scarl michelle densities within the base of the left lower lobe. A 3 mm nodule within the right lower lobe in im age 89 demonstrate a groundglass halo and may represent an additional site of mild inflammatory/infe ctious process. IMPRESSION: 1. Patchy groundglass airspace opacities within the periphery the right lower lobe and left lung base . This likely represents a pneumonia. Follow-up recommended to ensure resolution. 2. Small right pleural effusion which has improved. 3. Emphysema and mild bronchial wall thickening, unchanged. 4. Stable nonocclusive right-sided chronic pulmonary emboli. No evidence for acute pulmonary embolus on this study. 5. Prominent AP window lymph nodes have improved in the interval. 6. Additional findings as described above. ACT 112: Positive. There are findings on this exam that require communication between the performing entity and the patient following Patient Test Result Information Act ([place] Act 112) guidelines. Electronically signed by: Faheem Red M.D. 01/31/2023 4:35 PM
--- NOTE | 2023-01-31 16:45 | Cardiology Progress Note ---
Date of Service January 31, 2023 Assessment & Plan (1) Hypoxia: (2) Paroxysmal atrial fibrillation: (3) Nonischemic dilated cardiomyopathy: (4) Pneumonitis: Plan IMPRESSION: 52 year old male with history of NICM/possible tachycardic induced CM, Paroxysmal atrial fibrillation (on sotalol+metoprolol), and COPD. Presents with worsening shortness of breath and Hypoxia requiring supplemental o2 therapy. Patient not presenting significantly volume overloaded on exam. Maintaining NSR on telemetry with controlled rates. Echo with normalized LVEF on preliminary read. PLAN: Pneumonia/pneumonitis: Pulmonary medicine input noted and appreciated. CT of the chest performed 01/31/2023, revealing patchy groundglass airspace opacities within the periphery of the right lower lobe and left lung base, emphysema noted, stable nonocclusive right-sided chronic pulmonary emboli noted. Continue doxycycline and Eliquis NICM-- Patient not examining volume overloaded. Preliminary echo read showing normalized LVEF. Potassium 3.3 today. Continues to supplement. Transition furosemide to 20 mg p.o. daily on 02/01/2023 Restart GMDT-- Continue Entresto 51-49 mg BID Transition metoprolol tartrate to metoprolol succinate 25 mg BID. (Noted treatment with both sotalol and metoprolol, heart rate stable without significant bradycardia) PAF: Maintaining NSR on telemetry. Continue Eliquis 5 mg BID (also on AC due to history of unprovoked DVT/PE) QTc stable, Continue Sotalol 80 mg BID Metoprolol tartrate dc'd in favor of succinate Wean oxygen as tolerated. DVT prophylaxis: Patient is on Eliquis. Admission and Anticipated Discharge Date Admission Date: January 29, 2023 Subjective Patient seen in cardiology follow-up. Oxygen requirement has improved, but still present. Subjectively trending toward improvement. Denies palpitations. Telemetry reveals sinus rhythm in the 60s. Physical Exam Constitutional: WD/WN, vitals as above no acute distress Neck: normal visual inspection and trachea midline Respiratory: + cough; no respiratory distress Auscultation: no rales, no rhonchi and no wheezes Cardiovascular: Rate/Rhythm: regular rate and regular rhythm Heart Sounds: normal S1 and normal S2; no murmur Vessels: no JVD Extremities: no edema Gastrointestinal (Abdomen): normal bowel sounds, soft, nontender, no hepatosplenomegaly Skin: no rashes, warm and dry Psychiatric: A+Ox3, euthymic affect Results & Data Vital Signs (Past 12 Hours) Vital Signs Temp Pulse Pulse Resp BP Pulse Ox O2 Del Method 01/31/23 15:23 60 01/31/23 13:28 95 Oxymask 01/31/23 11:30 36.3 C L 61 18 123/82 95 Oxymask 01/31/23 10:48 96 Nasal Cannula 01/31/23 07:26 36.6 C 60 18 109/73 96 Oxymask 01/31/23 07:38 55 L O2 Flow Rate 01/31/23 15:23 01/31/23 13:28 4 01/31/23 11:30 6 01/31/23 10:48 4 01/31/23 07:26 6 01/31/23 07:38 Laboratory Results CBC 01/31/23 Range/Units 05:55 WBC 9.13 (4.8-10.8) K/ul RBC 4.37 L (4.70-6.10) M/uL Hgb 13.6 L (14.0-18.0) g/dl Hct 41.7 L (42.0-52.0) % Plt Count 188 (130-400) K/uL Neut # (Auto) 6.21 (1.40-6.50) K/uL Lymph # (Auto) 2.06 (1.20-3.40) K/uL [place] # (Auto) 0.70 H (0.11-0.59) K/uL Eos # (Auto) 0.11 (0.00-0.50) K/uL Baso # (Auto) 0.02 (0.00-0.20) K/uL Comprehensive Metabolic Panel 01/31/23 Range/Units 05:55 Sodium 142 (136-145) mmol/L Potassium 3.3 L (3.5-5.1) mmol/L Chloride 101 (98-107) mmol/L Carbon Dioxide 38 H (21-32) mmol/L BUN 22 (6-23) mg/dl Creatinine 0.67 (0.6-1.4) mg/dl Glucose 146 H (70-99(Fasting)) mg/dl Calcium 8.7 (8.6-10.3) mg/dl Intake and Output 01/31/23 01/31/23 01/31/23 06:59 14:59 22:59 Intake Total 240 / 240 Output Total 0 / 550 Balance 0 / -310 240 / 240 Intake: Oral 240 / 240 Output: Urine 0 / 550 Other: Weight 104.7 kg 104.7 kg 104.7 kg Weight Measurement Method Standing Scale Patient Weight 02/01/23 06:59 Weight 104.7 kg
--- NOTE | 2023-01-31 16:47 | Hospitalist Progress Note ---
Date of Service January 31, 2023 Assessment & Plan (1) Acute respiratory failure with hypoxia: (2) Pneumonitis: (3) COPD exacerbation: (4) Paroxysmal atrial fibrillation: (5) History of pulmonary embolism: (6) Hypertension: (7) Type 2 diabetes mellitus: Plan Mr Brunson is a 52-year-old gentleman with past med significant for type 2 diabetes hyperlipidemia, pulmonary embolism and DVT history of chronic systolic heart failure, hypertension, paroxysmal atrial fibrillation, s/p pulmonary vein isolation procedure and caval tricuspid isthmus ablation on on 07/2021. S/p [place]frequency [place] [facility] [place] history of parotid mass, obesity, known medication noncompliance currently patient living at [place], [place] visiting sister in [place], who was admitted overnight for acute hypoxic respiratory failure with possible component of COPD exacerbation v new heart failure. Patient appears well overall from general appearance, but titrated to 4L NC this afternoon. Evaluation of CT 2019 notes LAD linear scarring, consolidations with appearance c/f inflammatory v infectious pneumonitis; no follow-up after with Pulm. Pulm consulted today with plans for CTA chest given history of medication noncompliance, as well as prior unprovoked PE. #Acute hypoxic respiratory failure, possibly multifactorial #Nonischemic Cardiomyopathy #Emphysema on imaging, likely COPD exacerbation -No clear dysfunction on ECHO, however, CXR with pulm edema and improved with diuersis -s/p hour-long nebs and p.o. azithromycin and IV Lasix and IV Solu-Medrol in the ER -Reduce freuqency of nebs to PRN -Discontinue lasix as fluid status appears stable -Start Breo 1 puff daily -Cardiology on consult: less suspicious for HF exacerbation -Monitor on telemetry floor #Patchy airway consolidations, infectious v inflammatory pneumonitis #Emphysema on imaging, ?COPD exacerbation #Tobacco Use No known history of COPD, nor formal PFTs performed; CT image with LAD and signs of pneumonitis, reactive? -Patient reports questionable improvement with nebs -Daily 1ppd smoker, reports quit "yesterday" because of his breathing -Adjust neb treatments to prn -Transition to PO prednisone (EOT 01/31) -Continue doxycycline 100mg bid (02/05) -Counselled on cessation and options to assist, patient declined at this time -Pulmonary on consult, plan for CTA chest, stable chronic PE #Prior Cavitary lesion of lung, right apex CXR:Nonspecific possibly cavitary right apical lesion containing a central nodule. Clinical and imaging follow-up is recommended. 2019-CT Chest: Acute pulmonary embolus in the distal right main pulmonary artery extending into lobar branches of the right lung. 6.1 cm cavitary lesion at the right apex with surrounding nodular consolidation. An infectious etiology is favored though cavitary metastatic lesion cannot be excluded. Subcentimeter right supraclavicular and mediastinal lymph nodes, nonspecific. Trace right pleural effusion and small volume upper abdominal ascites. Nasogastric tube appropriately positioned.. Dependent consolidation in the lung bases right greater than left, possibly extensive atelectasis or scarring. 2019 Sputum for AFB: Negative, Quant Gold negative; completed 4-6 weeks of levaquin + flagyl 2018 2019 Biopsy with noted iron staining correlation hemorrhage on read ?vasculitis; however, repeat CT appears improved but noted emphasematous changes -Ordered ANCA, pANCA, PR3 vasculitis work up -CT with resolution of lesion and no further cavitations -Will recommend follow up as OP #Prior DVT and pulmonary emboli Chronic thrombus seen on imaging -Continue Eliquis #Hypertension Reduced home entresto dose 2/2 hypotension #Paroxysmal atrial fibrillation s/p ablation Patient states he had cardioversion yesterday -Continue sotalol 80mg BID -Transitioned Metoprolol Tartrate to Succinate -Continue Eliquis #Uncontrolled DMII A1C 9.4%, reports being out of home regimen for ~1 month, notably insulin prior to running out may have been an "old prescription" Home regimen reportedly upwards to 40 U BID [facility] for glycemic mgmt #Hyperlipidemia on statin #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, 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 DVT prophylaxis on Eliquis Disposition telemetry floor Full code Admission and Anticipated Discharge Date Admission Date: January 29, 2023 Subjective Patient on 6L this am, but weening throughout the day States that he is doing well overall and denies any sense of dyspnea at this time Patient denies any new acute concerns including chest pain, SOB, palpitations, or any other issues Review of Systems Review of Systems: All systems reviewed & are unremarkable except as noted in Subjective Physical Exam Constitutional: WD/WN, vitals as above Eyes: PERRL, conjunctivae normal, anicteric sclerae ENMT: external ear and nose normal, oropharynx normal Neck: trachea midline, no thyromegaly Respiratory: Breath sounds diminished at the bases Cardiovascular: RRR, no murmur, no edema Gastrointestinal (Abdomen): normal bowel sounds, soft, nontender, no hepatosplenomegaly Musculoskeletal: no cyanosis or clubbing, extremities motor strength 5/5 Skin: no rashes, warm and dry Neurologic: patellar DTR's 2+ bilat, sensation intact and PERRL, EOMI, accommodation nl, no face palsy, no dysarthria Psychiatric: A+Ox3, euthymic affect Results & Data Results & Data Vital Signs (Past 12 Hours) Vital Signs Temp Pulse Pulse Resp BP Pulse Ox O2 Del Method 01/31/23 15:23 60 01/31/23 13:28 95 Oxymask 01/31/23 11:30 36.3 C L 61 18 123/82 95 Oxymask 01/31/23 10:48 96 Nasal Cannula 01/31/23 07:26 36.6 C 60 18 109/73 96 Oxymask 01/31/23 07:38 55 L O2 Flow Rate 01/31/23 15:23 01/31/23 13:28 4 01/31/23 11:30 6 01/31/23 10:48 4 01/31/23 07:26 6 01/31/23 07:38 Laboratory Results Short CBC 01/31/23 Range/Units 05:55 WBC 9.13 (4.8-10.8) K/ul Hgb 13.6 L (14.0-18.0) g/dl Hct 41.7 L (42.0-52.0) % Plt Count 188 (130-400) K/uL BMP 01/31/23 05:55 Sodium 142 Potassium 3.3 L Chloride 101 Carbon Dioxide 38 H BUN 22 Creatinine 0.67 Glucose 146 H Calcium 8.[address] 01/31/23 15:57 CT chest diagnostic wo/w con CT DOSE: 2071.50 mGy.cm CLINICAL HISTORY: hypoxia TECHNIQUE: Multiaxial CT images of the chest were performed both before and after the intravenous administration of contrast. A dose lowering technique was utilized adhering to the principles of ALARA. COMPARISON STUDY: Chest CTA 03/01/2020. FINDINGS: Normal caliber thoracic aorta with no evidence for a dissection. Small linear filling defect seen within the distal right main pulmonary artery and extending into the right lobar pulmonary arteries consistent with a chronic nonocclusive pulmonary embolus. This remains unchanged. No evidence for acute pulmonary embolus. The thyroid gland enhances normally. Limited views of the upper abdomen demonstrate normal liver, spleen, adrenal glands. There is a small right pleural effusion which is decreased in size. No pericardial effusion. Normal esophagus. No hilar lymphadenopathy. Prominent AP window lymph nodes have improved. Therefore, these are likely benign. Moderate coronary artery calcifications are noted. No pericardial effusion. The heart is normal in size. No suspicious lytic or blastic osseous lesions. No acute fractures identified. Mild diffuse bronchial wall thickening with mild emphysema. This is likely chronic. There is a stable linear scarlike density within the right lung apex. There is a 4 cm bleb within the left upper lobe anteriorly. There are few right apical blebs also noted. There are patchy peripheral groundglass airspace opacities seen within the right upper lobe and base of the left lower lobe. This likely represents a pneumonia. Consolidation within the base of the right lower lobe may represent compressive atelectasis from the pleural effusion. A few linear scarlike densities within the base of the left lower lobe. A 3 mm nodule within the right lower lobe in image 160 demonstrate a groundglass halo and may represent an additional site of mild inflammatory/infectious process. IMPRESSION: 1. Patchy groundglass airspace opacities within the periphery the right lower lobe and left lung base. This likely represents a pneumonia. Follow-up recommended to ensure resolution. 2. Small right pleural effusion which has improved. 3. Emphysema and mild bronchial wall thickening, unchanged. 4. Stable nonocclusive right-sided chronic pulmonary emboli. No evidence for a cute pulmonary embolus on this study. 5. Prominent AP window lymph nodes have improved in the interval. 6. Additional findings as described above. ACT 112: Positive. There are findings on this exam that require communication between the performing entity and the patient following Patient Test Result Information Act ([place] Act 112) guidelines. Electronically signed by: Faheem Red M.D. 01/31/2023 4:35 PM Medications Administered Home Medications Medication Instructions Recorded Confirmed Last Taken insulin glargine 100 unit/mL (3 30 unit subcut QAM 05/02/19 01/28/23 01/28/23 mL) subcutaneous pen (Lantus Solostar U-100 Insulin) apixaban 5 mg tablet (Eliquis) 5 mg PO BID 08/01/19 01/28/23 01/28/23 metformin 1,000 mg tablet 1,000 mg PO AMPM 03/01/20 01/28/23 01/28/23 metoprolol tartrate 25 mg tablet 25 mg PO BID 03/01/20 01/28/23 01/28/23 albuterol 90 mcg/actuation aerosol 180 mcg inhalation QID 05/08/20 05/08/20 Unknown inhaler atorvastatin 40 mg tablet 40 mg PO QAM 05/08/20 01/28/23 01/28/23 ondansetron 4 mg disintegrating 4 mg PO Q8H PRN Nausea 05/08/20 01/28/23 Unknown tablet sotalol 80 mg tablet 80 mg BID 05/08/20 01/28/23 01/28/23 dapagliflozin propanediol 10 mg 10 mg PO QAM 01/28/23 01/28/23 01/20/23 tablet (Farxiga) sacubitril 49 mg-valsartan 51 mg 1 tab PO BID 01/28/23 01/28/23 Unknown tablet (Entresto) Active Medications Generic Name Dose Route Start Last Admin Trade Name Freq PRN Reason Stop Dose Admin Apixaban 5 mg 01/29/23 09:00 01/31/23 09:05 Apixaban 5 Mg Tablet PO 02/28/23 08:59 5 mg BID NENA Administration Atorvastatin Calcium 40 mg 01/29/23 09:00 01/31/23 09:05 Atorvastatin 40 Mg Tab PO 02/28/23 08:59 40 mg QAM NENA Administration Doxycycline Hyclate 100 mg 01/29/23 09:00 01/31/23 10:17 Doxycycline Hyclate 100 Mg Cap PO 02/05/23 08:59 100 mg BID NENA Administration Fluticasone/Vilanterol 1 puffs 01/30/23 09:00 01/31/23 09:06 Fluticasone/Vilanterol 100/25mcg 14 Puffs/Inhaler INH 03/01/23 08:59 1 puffs DAILY NENA Administration Furosemide 40 mg 01/29/23 09:00 01/29/23 17:05 Furosemide 40 Mg/4 Ml Vial IV 02/28/23 08:59 40 mg BID17 NENA Administration Insulin Aspart 0 units 01/29/23 02:15 01/31/23 12:40 Insulin Aspart Per Unit Charge SC 02/28/23 02:14 18 units ACHS NENA Administration Levalbuterol HCl 1.25 mg 01/29/23 14:29 01/29/23 14:52 Levalbuterol 1.25 Mg/3 Ml Neb NEB 02/28/23 06:59 1.25 mg QIDR PRN Administration wheezing Protocol Metoprolol Succinate 25 mg 01/29/23 21:00 01/31/23 09:06 Metoprolol Succ 25mg Ext Rel Tab PO 02/28/23 20:59 Not Given BID NENA Potassium Chloride 20 meq 01/31/23 09:00 01/31/23 09:07 Potassium Chloride Crtab 20 Meq Tabcr PO 03/02/23 08:59 20 meq BID NENA Administration Prednisone 40 mg 01/30/23 09:00 01/31/23 10:17 Prednisone 20 Mg Tab PO 02/01/23 08:59 40 mg DAILY NENA Administration Sacubitril/Valsartan 1 tab 01/31/23 09:00 01/31/23 09:06 Valsartan/Sacubitril 26/24mg Tab PO 03/02/23 08:59 1 tab BID NENA Administration Sotalol HCl 80 mg 01/29/23 09:00 01/31/23 09:06 Sotalol Hcl 80 Mg Tab PO 02/28/23 08:59 Not Given BID NENA (6) Hypertension Hypertension type: essential hypertension Qualified Code(s): I10 - Essential (primary) hypertension (7) Type 2 diabetes mellitus 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
[2023-02-01 06:48] LABS: Basophils # (auto) 0.04 K/uL (0.00-0.20); Basophils % (auto) 0.4 %; Eosinophils # (auto) 0.11 K/uL (0.00-0.50); Eosinophils % (auto) 1.1 %; Hematocrit (blood only) 40.6 % (42.0-52.0); Hemoglobin 13.1 g/dl (14.0-18.0); Immature Granulocytes # (auto) 0.02 K/uL (0.01-0.20); Immature Granulocytes % (auto) 0.2 %; Lymphocytes # (auto) 2.32 K/uL (1.20-3.40); Lymphocytes % (auto) 23.1 %; Mean Corpuscular Hemoglobin 30.7 pg (25.0-34.0); Mean Corpuscular Hgb Conc 32.3 g/dL (32.0-36.0); Mean Corpuscular Volume 95.1 fL (80.0-100.0); Mean Platelet Volume 11.7 fL (9.4-12.4); Monocytes # (auto) 0.73 K/uL (0.11-0.59); Monocytes % (auto) 7.3 %; Neutrophils # (auto) 6.81 K/uL (1.40-6.50); Neutrophils % (auto) 67.9 %; Platelet Count 191 K/uL (130-400); RDW Coefficient of Variation 14.2 % (11.5-14.5); RDW Standard Deviation 49.6 fL (36.4-46.3); Red Blood Count 4.27 M/uL (4.70-6.10); White Blood Count 10.03 K/ul (4.8-10.8)
[2023-02-01 07:03] LABS: BUN Creatinine Ratio 31.4 (10-20); Calcium 8.4 mg/dl (8.6-10.3); Creatinine Clr Calc Pharmacy 147.6 ml/min; Potassium 3.9 mmol/L (3.5-5.1)
[2023-02-01] MEDS: INSULIN ASPART PER UNIT CHARGE SC SCH ×2 (07:56→11:57)
[2023-02-01] MEDS ORDERED: LANTUS PER UNIT CHARGE SQ SCH (09:00)
[2023-02-01] MEDS ORDERED: FUROSEMIDE 20 MG TAB PO SCH (09:00)
[2023-02-01] MEDS: DOXYCYCLINE HYCLATE 100 MG CAP PO SCH (09:15)
[2023-02-01] MEDS: APIXABAN 5 MG TABLET PO SCH (09:15)
[2023-02-01] MEDS: ATORVASTATIN 40 MG TAB PO SCH (09:15)
[2023-02-01] MEDS: METOPROLOL SUCC 25MG EXT REL TAB PO SCH (09:15)
[2023-02-01] MEDS: VALSARTAN/SACUBITRIL 26/24MG TAB PO SCH (09:16)
[2023-02-01] MEDS: POTASSIUM CHLORIDE CRTAB 20 MEQ TABCR PO SCH (09:16)
[2023-02-01] MEDS: SOTALOL HCL 80 MG TAB PO SCH (09:16)
[2023-02-01] MEDS: FLUTICASONE/VILANTEROL 100/25MCG 14 PUFFS/INHALER INH SCH (09:17)
--- NOTE | 2023-02-01 12:19 | Cardiology Progress Note ---
Date of Service February 01, 2023 Assessment & Plan (1) Hypoxia: (2) Paroxysmal atrial fibrillation: (3) Nonischemic dilated cardiomyopathy: (4) Pneumonitis: Plan IMPRESSION: 52 year old male with history of NICM/possible tachycardic induced CM, Paroxysmal atrial fibrillation (on sotalol+metoprolol), and COPD. Presents with worsening shortness of breath and Hypoxia requiring supplemental o2 therapy. Patient not presenting significantly volume overloaded on exam. Maintaining NSR on telemetry with controlled rates. Echo with normalized LVEF on preliminary read. PLAN: Pneumonia/pneumonitis: Pulmonary medicine input noted and appreciated. CT of the chest performed 01/31/2023, revealing patchy groundglass airspace opacities within the periphery of the right lower lobe and left lung base, emphysema noted, stable nonocclusive right-sided chronic pulmonary emboli noted. Continue doxycycline and Eliquis NICM-- Patient not examining volume overloaded. Preliminary echo read showing normalized LVEF. Potassium 3.3 today. Continues to supplement. Transition furosemide to 20 mg p.o. daily on 02/01/2023 Restart GMDT-- Continue Entresto 51-49 mg BID Transition metoprolol tartrate to metoprolol succinate 25 mg BID. (Noted treatment with both sotalol and metoprolol, heart rate stable without significant bradycardia) PAF: Maintaining NSR on telemetry. Continue Eliquis 5 mg BID (also on AC due to history of unprovoked DVT/PE) QTc stable, Continue Sotalol 80 mg BID Metoprolol tartrate dc'd in favor of succinate 02/01/2023 Clinically improving. Would continue medications as above Continue furosemide 20 mg p.o. daily Add spironolactone 12.5 mg daily Discontinue potassium supplement BMP 1 week to 2 weeks Patient to reestablish with cardiology in [place] Admission and Anticipated Discharge Date Admission Date: January 29, 2023 Subjective Patient was seen and examined, chart and telemetry reviewed. No arrhythmias overnight. No chest pain or shortness of breath with breathlessness improving. Cough and wheeze much improved. No dizziness or lightheadedness. Review of Systems Review of Systems: All systems reviewed & are unremarkable except as noted in Subjective Physical Exam Constitutional: WD/WN, vitals as above no acute distress Neck: normal visual inspection and trachea midline Respiratory: + cough and + tachypneic; no respiratory distress Auscultation: no rales, no rhonchi and no wheezes Cardiovascular: Rate/Rhythm: regular rate and regular rhythm Heart Sounds: normal S1 and normal S2; no murmur Vessels: no JVD Extremities: no edema Gastrointestinal (Abdomen): normal bowel sounds, soft, nontender, no hepatosplenomegaly Skin: no rashes, warm and dry Psychiatric: A+Ox3, euthymic affect Results & Data Vital Signs (Past 12 Hours) Vital Signs Temp Pulse Pulse Pulse Pulse Resp Resp 02/01/23 11:31 36.7 C 61 18 02/01/23 09:14 62 02/01/23 09:07 72 64 59 L 18 02/01/23 07:44 36.8 C 58 L 20 02/01/23 03:00 36.6 C 58 L 16 Resp Resp BP Pulse Ox Pulse Ox Pulse Ox Pulse Ox 02/01/23 11:31 117/76 90 02/01/23 09:14 118/73 02/01/23 09:07 18 16 94 91 92 02/01/23 07:44 117/73 94 02/01/23 03:00 118/76 97 O2 Del Method O2 Flow Rate 02/01/23 11:31 Room Air, Nasal Cannula 02/01/23 09:14 02/01/23 09:07 02/01/23 07:44 Nasal Cannula 2 02/01/23 03:00 Nasal Cannula Laboratory Results Laboratory Results - last 24 hr 01/31/23 01/31/23 01/31/23 15:27 16:27 20:09 WBC RBC Hgb Hct MCV MCH MCHC RDW Std Deviation RDW Coeff of Faustino Plt Count MPV Immature Gran % (Auto) Neut % (Auto) Lymph % (Auto) [place] % (Auto) Eos % (Auto) Baso % (Auto) Neut # (Auto) Lymph # (Auto) [place] # (Auto) Eos # (Auto) Baso # (Auto) Immature Gran # (Auto) Sodium Potassium Chloride Carbon Dioxide Anion Gap BUN Creatinine Est Cr Clr Drug Dosing Est GFR ( Amer) Est GFR (Non-Af Amer) BUN/Creatinine Ratio Glucose POC Glucose 93 264 H 239 H Calcium 02/01/23 02/01/23 02/01/23 05:54 05:54 07:10 WBC 10.03 RBC 4.27 L Hgb 13.1 L Hct 40.6 L MCV 95.1 MCH 30.7 MCHC 32.3 RDW Std Deviation 49.6 H RDW Coeff of Faustino 14.2 Plt Count 191 MPV 11.7 Immature Gran % (Auto) 0.2 Neut % (Auto) 67.9 Lymph % (Auto) 23.1 [place] % (Auto) 7.3 Eos % (Auto) 1.1 Baso % (Auto) 0.4 Neut # (Auto) 6.81 H Lymph # (Auto) 2.32 [place] # (Auto) 0.73 H Eos # (Auto) 0.11 Baso # (Auto) 0.04 Immature Gran # (Auto) 0.02 Sodium 140 Potassium 3.9 Chloride 104 Carbon Dioxide 32 Anion Gap 4 BUN 22 Creatinine 0.70 Est Cr Clr Drug Dosing 147.6 Est GFR ( Amer) 124.0 Est GFR (Non-Af Amer) 107.0 BUN/Creatinine Ratio 31.4 H Glucose 154 H POC Glucose 148 H Calcium 8.4 L 02/01/23 11:13 WBC RBC Hgb Hct MCV MCH MCHC RDW Std Deviation RDW Coeff of Faustino Plt Count MPV Immature Gran % (Auto) Neut % (Auto) Lymph % (Auto) [place] % (Auto) Eos % (Auto) Baso % (Auto) Neut # (Auto) Lymph # (Auto) [place] # (Auto) Eos # (Auto) Baso # (Auto) Immature Gran # (Auto) Sodium Potassium Chloride Carbon Dioxide Anion Gap BUN Creatinine Est Cr Clr Drug Dosing Est GFR ( Amer) Est GFR (Non-Af Amer) BUN/Creatinine Ratio Glucose POC Glucose 260 H Calcium
--- NOTE | 2023-02-01 12:22 | Pulmonology Progress Note ---
Date of Service February 01, 2023 Assessment & Plan (1) Acute respiratory failure with hypoxia: (2) COPD exacerbation: Plan Impression: 52-year-old male admitted with CHF/COPD exacerbation. His oxygen requirement is now resolved and he feels much better. We do not have prior PFTs available. Recommendations: 1. COPD: Severity uncertain. At this point time would recommend that the patient continue on the Breo and have follow-up PFTs performed with his outpatient provider within the next 4 [address] scan shows a stable scar in the apex. He does not demonstrate any significant interstitial lung disease. No indication for additional radiographic surveillance at this point time. He is established with Dr. Alvarez and can follow up with him in pulm clinic if needed. 2. Hypoxemia: Resolved. Likely multifactorial. 3. CT scan was independently reviewed. There is no significant structural lung disease and the groundglass opacities commented on by radiology are trivial in nature and unlikely to account for any significant hypoxemia. Would recommend that he complete 5 days total of doxycycline. From a pulmonary perspective, the patient appears stable to dismiss to home. Again he can follow-up with Dr. Alvarez in the outpatient pulmonary clinic if pulmonary follow-up is required, otherwise he can follow-up with his primary care provider. Feel free to contact us with questions or concerns. Admission and Anticipated Discharge Date Admission Date: January 29, 2023 Subjective Patient seen and examined. EMR reviewed. Discussed with off going sailing instructor. The patient is awake alert and sitting up at the bedside. He is off oxygen. He states his breathing is better. He was ambulated and exhibited no oxygen desaturations. He denies chest pain or palpitations. He is not coughing or producing phlegm. He overall feels much better than when he arrived at the hospital. Review of Systems Review of Systems: All systems reviewed & are unremarkable except as noted in Subjective Physical Exam Constitutional: WD/WN, vitals as above Neck: trachea midline, no thyromegaly Respiratory: normal respiratory effort, lungs clear to auscultation Cardiovascular: RRR, no murmur, no edema Gastrointestinal (Abdomen): normal bowel sounds, soft, nontender, no hepatosplenomegaly Musculoskeletal: Extremities: extremities normal to inspection Skin: no rashes, warm and dry Neurologic: Nonfocal exam Lymphatic: no cervical lymphadenopathy Results & Data Results & Data Vital Signs (Past 12 Hours) Vital Signs Temp Pulse Pulse Pulse Pulse Resp Resp 02/01/23 11:31 36.7 C 61 18 02/01/23 09:14 62 02/01/23 09:07 72 64 59 L 18 02/01/23 07:44 36.8 C 58 L 20 02/01/23 03:00 36.6 C 58 L 16 Resp Resp BP Pulse Ox Pulse Ox Pulse Ox Pulse Ox 02/01/23 11:31 117/76 90 02/01/23 09:14 118/73 02/01/23 09:07 18 16 94 91 92 02/01/23 07:44 117/73 94 02/01/23 03:00 118/76 97 O2 Del Method O2 Flow Rate 02/01/23 11:31 Room Air, Nasal Cannula 02/01/23 09:14 02/01/23 09:07 02/01/23 07:44 Nasal Cannula 2 02/01/23 03:00 Nasal Cannula Laboratory Results 02/01/23 05:54 02/01/23 05:[address] chest diagnostic wo/w con 01/31/[address] DOSE: 2071.50 mGy.cm CLINICAL HISTORY: hypoxia TECHNIQUE: Multiaxial CT images of the chest were performed both before and after the intravenous administration of contrast. A dose lowering technique was utilized adhering to the principles of ALARA. COMPARISON STUDY: Chest CTA 03/01/2020. FINDINGS: Normal caliber thoracic aorta with no evidence for a dissection. Small linear filling defect seen within the distal right main pulmonary artery and extending into the right lobar pulmonary arteries consistent with a chronic nonocclusive pulmonary embolus. This remains unchanged. No evidence for acute pulmonary embolus. The thyroid gland enhances normally. Limited views of the upper abdomen demonstrate normal liver, spleen, adrenal glands. There is a small right pleural effusion which is decreased in size. No pericardial effusion. Normal esophagus. No hilar lymphadenopathy. Prominent AP window lymph nodes have improved. Therefore, these are likely benign. Moderate coronary artery calcifications are noted. No pericardial effusion. The heart is normal in size. No suspicious lytic or blastic osseous lesions. No acute fractures identified. Mild diffuse bronchial wall thickening with mild emphysema. This is likely chronic. There is a stable linear scarlike density within the right lung apex. There is a 4 cm bleb within the left upper lobe anteriorly. There are few right apical blebs also noted. There are patchy peripheral groundglass airspace opacities seen within the right upper lobe and base of the left lower lobe. This likely represents a pneumonia. Consolidation within the base of the right lower lobe may represent compressive atelectasis from the pleural effusion. A few linear scarlike densities within the base of the left lower lobe. A 3 mm nodule within the right lower lobe in image 160 demonstrate a groundglass halo and may represent an additional site of mild inflammatory/infectious process. IMPRESSION: 1. Patchy groundglass airspace opacities within the periphery the right lower lobe and left lung base. This likely represents a pneumonia. Follow-up recommended to ensure resolution. 2. Small right pleural effusion which has improved. 3. Emphysema and mild bronchial wall thickening, unchanged. 4. Stable nonocclusive right-sided chronic pulmonary emboli. No evidence for acute pulmonary embolus on this study. 5. Prominent AP window lymph nodes have improved in the interval. 6. Additional findings as described above. PG Care Time/CCT Total # of Minutes Spent Total Time Spent with Patient: Total time spent is greater than 50% in coordination of care (as documented) at patient's floor/unit and/or counseling patient: Coding Level of Care Code 95799 SUB INP/OBS CARE 2/35MIN Diagnoses Acute respiratory failure with hypoxia J96.01 COPD exacerbation J44.1
[2023-02-01] MEDS ORDERED: SPIRONOLACTONE 12.5 MG TAB PO SCH (12:30)
--- NOTE | 2023-02-01 14:09 | Pharmacy Report ---
Pharmacy Glycemic Short Note 2 - Date of Service February 01, 2023 - Glycemic Short BSG Results (Last 24 hours): 01/31/23 01/31/23 01/31/23 15:27 16:27 20:09 Glucose POC Glucose 93 264 H 239 H 02/01/23 02/01/23 02/01/23 05:54 07:10 11:13 Glucose 154 H POC Glucose 148 H 260 H OUTPATIENT ANTIDIABETIC REGIMEN: * Lantus 30 units Q AM * Farxiga 10mg PO Q AM * Metformin 1000mg PO BID * A1c = 9.4% 01/29/23 ASSESSMENT: 02/01/23: * BSGs poorly controlled yesterday, ranging 141-264 mg/dL * Received 126 units of insulin (~50/50 basal/bolus split) * Last dose of prednisone given yesterday morning (no ongoing steroids) * Will preemptively loosen Novolog parameters today and decrease basal 01/30/23: * BSGs trended down throughout the day yesterday * Fasting BSG elevated this morning at 181 mg/dL * Steroids changed to prednisone 40 mg PO daily * Will front-load basal this morning (consider NPH tomorrow) 01/29/23: * Poorly controlled type 2 diabetic admitted for hypoxia, possibly secondary to COPD exac / ADHF / pneumonia * Received high dose steroid in ED and current orders for Solu-Medrol 40mg IV Q 8 hrs * Insulin requirements likely to be high given steroid and other acute stressors. Will initiate basal/bolus SQ regimen based upon "severe" stress and weight PLAN FOR INPATIENT GLYCEMIC CONTROL: * Hold outpatient oral diabetes medications * Basal insulin * Lantus 30 units SC daily (home dose) * Bolus insulin * NovoLog per scale ACHS i.e. * Goal Range: Low 110 mg/dL - High 140 mg/dL * Correction Factor: 15 mg/dL/unit * Nutritional / Prandial insulin per carb ratio of 1 unit per 5 grams CHO consumed
--- NOTE | 2023-02-01 15:54 | Electrocardiogram Report ---
Test Reason : Blood Pressure : / mmHG Vent. Rate : 079 BPM Atrial Rate : 079 BPM P-R Int : 162 ms QRS Dur : 076 ms QT Int : 412 ms P-R-T Axes : 057 089 076 degrees QTc Int : 472 ms Normal sinus rhythm Septal infarct (cited on or before 28-JAN-2023) Nonspecific T wave abnormality Abnormal ECG When compared with ECG of 08-MAY-2020 08:42, Questionable change in initial forces of Anteroseptal leads T wave inversion no longer evident in Lateral leads Confirmed by Juan Ryan ([id number]) on 02/01/2023 3:54:07 PM Referred By: REFERRED SELF Confirmed By:Juan Ryan
--- NOTE | 2023-02-01 18:48 | Discharge Summary ---
Discharge Summary Date of Service February 01, 2023 Notes For Next Care Provider [ ] Consider OP PFTS [ ] BMP in 1-2 weeks [ ] Keep follow up with PCP in [place] and with Pump Rebuilder Medication Changes From Visit -Entresto dose was reduced 26/24mg twice a day due to hypotension -Start Lasix (furosemide) 20mg in the morning -Start Spironolactone 12.5mg daily -Transitioned to Metoprolol Succinate 25mg twice a day -Start Advair inhaler, 1 puff twice a day -Continue doxycycline 100mg bid (02/02, three tabs) Admission HPI Per Admitting Provider 52-year-old male with past med significant for type 2 diabetes hyperlipidemia, pulmonary embolism and DVT history of chronic systolic heart failure, hypertension, paroxysmal atrial fibrillation, s/p pulmonary vein isolation procedure and caval tricuspid isthmus ablation on on 07/2021. S/p PVI radiofrequency catheter ablation on 09/2021 at [facility] [address], history of parotid mass, history of obesity, history of known medication noncompliance currently patient living at [facility] visiting [place] today to sister's place when he felt short of breath and palpitations and came to the ER. 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 In the ER patient requiring 8 L oxygen mask. Able to answer questions. Alert and oriented. Denies any chest pain. No headache. No blurred visions or earache or runny nose. Has cough and bringing some phlegm for last couple of days. Denies any fevers. No nausea. No abdominal pain. Normal bowel and bladder movements. Ongoing smoking with half pack a day for last 40 years Past medical history as mentioned above Past surgical history colonoscopy, ablation for atrial flutter, A-fib pulmonary vein isolation, cardioversion, left knee arthroscopy, left ventral hernia surgery, appendectomy Social history smoking half pack a day for last 40 years. Alcohol occasional. Smokes pot occasionally Family history father had heart disease and blood clots. Admission Exam Per Admitting Provider General- Not in distress Head- atraumatic Eyes- PERRL ENT- oropharynx clear Neck- supple, no JVD,. Lungs- clear to auscultation, bilateral occasional wheezing, mild bibasilar crackles. Heart- regular rate and rhythm; no murmur, no gallop,. Abdomen- normal bowel sounds, soft, nontender, no distension. Extremities- mild pretibial edema, no erythema seen. Neuro- alert, oriented x 3; PERRL, EOMI; no facial palsy; no dysarthria; non focal. Skin- warm & dry Principal Dx & Hospital Course #1 = Principal Diagnosis (1) Acute respiratory failure with hypoxia: (2) Pneumonitis: (3) COPD exacerbation: (4) Paroxysmal atrial fibrillation: (5) History of pulmonary embolism: (6) Hypertension: (7) Type 2 diabetes mellitus: Plan Mr Brunson is a 52-year-old gentleman with past med significant for type 2 diabetes hyperlipidemia, pulmonary embolism and DVT history of chronic systolic heart failure, hypertension, paroxysmal atrial fibrillation, s/p pulmonary vein isolation procedure and caval tricuspid isthmus ablation on on 07/2021. S/p PVI radiofrequency catheter ablation on 09/2021 at [facility], history of parotid mass, obesity, known medication noncompliance currently patient living at [place], [place] visiting sister in [place], who was admitted 01/29 for acute hypoxic respiratory failure with possible component of COPD exacerbation v new heart failure. Also notable were sugars in the 500s initially, with an A1C of 9.4%. Patient reported that his pcp "quit" and he was without medications for over a month. Patient initially required 6 L NC, and was treated for combination of COPD/HF. Patient was diuersised and given standard COPD regimen. The following day patient reported notable improvement; however, his O2 requirement was still 6L. Further review revealed history of cavitary lesion and inflammatory pneumonitis. Pulm was consulted to ensure there was no underlying parenchymal disease outside of emphasematous changes that contributed to presentation. CTA revealed no new PE or signs of ILD. Over the course of 72 hours, patient was able to wean off of oxygen entirely. On the day of discharge, patient was ambulating the halls, eating without concern, and denied any acute issues. #Acute hypoxic respiratory failure, possibly multifactorial *resolved #Nonischemic Cardiomyopathy #Emphysema on imaging, likely COPD exacerbation -No clear dysfunction on ECHO, however, CXR with pulm edema and improved with diuersis -s/p hour-long nebs and p.o. azithromycin and IV Lasix and IV Solu-Medrol in the ER -Start Advair 1 puff BID -Cardiology did not suspect HF as driving source for presentation #Patchy airway consolidations #Emphysema on imaging, ?COPD exacerbation #Tobacco Use No known history of COPD, nor formal PFTs performed; CT image with LAD and signs of pneumonitis, reactive? -Patient reports questionable improvement with nebs -Completed PO prednisone (EOT 01/31) -Continue doxycycline 100mg bid (02/02) -Counselled on cessation and options to assist, patient declined at this time - Advair inhaler as above -Recommended PFTs OP #Prior Cavitary lesion of lung, right apex Resolved on repeat imaging #Prior DVT and pulmonary emboli Chronic thrombus seen on imaging -Continue Eliquis #Hypertension Reduced home entresto dose 2/2 hypotension Started daily lasix 20mg #Paroxysmal atrial fibrillation s/p ablation -Continue sotalol 80mg BID -Transitioned Metoprolol Tartrate to Succinate -Continue Eliquis #Uncontrolled DMII A1C 9.4%, reports being out of home regimen for ~1 month, notably insulin prior to running out may have been an "old prescription" Home regimen reportedly upwards to 40 U BID [email or web address] for glycemic mgmt -Resume Farxiga 10mg, Metformin 1000mg daily, and Lantus qhs #Hyperlipidemia on statin #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, 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 Discharge Exam Constitutional WD/WN, vitals as above Eyes PERRL, conjunctivae normal, anicteric sclerae Respiratory normal respiratory effort, lungs clear to auscultation Cardiovascular RRR, no murmur, no edema Gastrointestinal (Abdomen) normal bowel sounds, soft, nontender, no hepatosplenomegaly Musculoskeletal no cyanosis or clubbing, extremities motor strength 5/5 Updated Medication List Medication Instructions Recorded Confirmed Type apixaban 5 mg tablet (Eliquis) 5 mg PO BID #60 tabs 02/01/23 Rx atorvastatin 40 mg tablet 40 mg PO QAM 30 days #30 tabs 02/01/23 Rx dapagliflozin propanediol 10 mg 10 mg PO QAM #30 tabs 02/01/23 Rx tablet (Farxiga) doxycycline hyclate 100 mg capsule 100 mg PO BID #3 caps 02/01/23 Rx fluticasone 113 mcg-salmeterol 14 1 inh inhalation BID #1 ea 02/01/23 Rx mcg/actuation breath activated powdr furosemide 20 mg tablet 20 mg PO QAM #30 tabs 02/01/23 Rx insulin glargine 100 unit/mL (3 30 unit (0.3 mL) subcut QAM #4 Pens 02/01/23 Rx mL) subcutaneous pen (Lantus Solostar U-100 Insulin) metformin 1,000 mg tablet 1,000 mg PO AMPM #30 tabs 02/01/23 Rx metoprolol succinate 25 mg 25 mg PO BID #30 tabs 02/01/23 Rx tablet,extended release 24 hr sacubitril 24 mg-valsartan 26 mg 1 tab PO BID #60 tabs 02/01/23 Rx tablet (Entresto) sotalol 80 mg tablet 80 mg PO BID #60 tabs 02/01/23 Rx Hospital Stay Data Consultations 01/28/23 22:33 ED Decision to Admit Stat 01/29/23 08:00 Consult Cardiology Routine 01/31/23 07:30 Consult Pulmonology Routine Diagnostic Imagining Performed 01/31/23 15:57 CT chest with and without contrast [CT chest diagnostic wo/w con] Routine Pending Results Patient Have Any Pending Studies at Discharge: No Discharge Instructions Given to Patient (Per Discharging Provider) You were admitted because of shortness of breath and low oxygen. This was though to be multifactorial: a component of likely COPD (Chronic obstructive lung disease), and initially a concern for heart failure. Here are the following updates to your medications: #Atrial Fibrillation #Nonischemic Cardiomyopathy -Your Entresto dose was reduced 26/24mg twice a day as your pressure was low on your original dose -Start Lasix (furosemide) 20mg in the morning -Start Spironolactone 12.5mg daily -Your previous Metoprolol was a shorter acting version; you have been transitioned to Metoprolol Succinate 25mg twice a day -Continue Sotalol 80mg twice a day -Continue Atorvastatin 40mg daily -Continue Eliquis (Apixaban) 5mg twice a day #Emphysema on imaging, likely COPD exacerbation -Please follow up with a Chocolate Coater or request your primary order PFTS (pulmonary function test) -Start Advair inhaler, 1 puff twice a day -Continue doxycycline 100mg bid (02/02, three tabs) -Continue abstinence from tobacco products to prevent further damage to lungs #Diabetes Your A1C this visit was 9.4% -Continue home Farxiga 10 mg daily -Continue Lantus solostar pen as directed -Continue Metformin 1000mg daily All of the above prescriptions discussed have been sent to the pharmacy you [facility] Please take this document with you to your new Primary Care appointment Total Time Total Time Spent Total Time Spent (In Minutes): Time spent evaluating patient, direct bedside care, chart review, placing discharge orders, interpretation of diagnostic studies, discussion with consultants, patient, and family members, as well as other required patient management activities is 45minutes.
[2023-02-02] MEDS ORDERED: POTASSIUM CHLORIDE CRTAB 20 MEQ TABCR PO SCH (09:00)
== END 2023-02-01 15:20 | disposition home or self-care (01) | DRG 193 ==
LOC: ED 19:16 → EDINP 01-29 00:05 → 2S 01-29 01:32